=== PATIENT | male | born 1935 | race Caucasian/White ===

== ENCOUNTER 2016-12-28 10:20 | Outpatient (CLI) | payer MEDICARE, OTHER ==
[~2016-12-28 10:20] MED LIST: IOPAMIDOL-300 100 ML VIAL IVP ONE
[2016-12-28 11:03] LABS: CREATININE 0.8 mg/dL (0.6-1.2)
--- NOTE | 2016-12-28 20:30 | CT Report ---
CONTRAST ENHANCED CT EXAM OF THE CHEST: 12/28/2016 CLINICAL HISTORY: Chest wall pain and weight loss. COMPARISON: 10/10/2014 TECHNIQUE: Patient received 100 mL of Isovue-370 as a contrast agent. CAT scan of the chest was don e in 5 x 5 mm intervals with axial, coronal and sagittal reconstruction images. In accordance with CT protocol optimization, one or more of the following dose reduction techniques w ere utilized for this exam: automated exposure control, adjustment of mA and/or KV based on patient size, or use of iterative reconstructive technique. FINDINGS: Mediastinum demonstrates small lymph nodes seen in the right and anterior aspect of the pa ratracheal region. There is a collection of lymph nodes once again noted in the left paratracheal an d anterior carinal region that vary in size from a few millimeters to 1.5 cm. These lymph nodes are not definitely changed since preceding exam. There is also some mild adenopathy once again noted in the subcarinal region of the mediastinum with lymph nodes in this region measuring 1.2 cm with one of the lymph nodes in this area containing a single small calcification within it. There is also a arabella cification within two left paraesophageal lymph nodes once again seen. The adenopathy within the med iastinum therefore, is most likely a result of old granulomatous disease especially since there has b een no change since 10/10/2014. Borderline heart size is noted with mild to moderate coronary artery calcification seen in all three coronary arteries. Hilar regions demonstrate some calcified granulomatous lymph nodes in the left hilum. Lungs demonstrate cystic changes especially in each upper lobe related to emphysema. There has been some mild progression of the cystic changes since preceding exam. There are also multiple calcified granulomas within the left lung. There is a 0.6 cm calcified granuloma in the anterior aspect of the apex of the left upper lobe and a 0.7 cm calcified granuloma within the left lower lobe. There is a prominent linear area of scarring seen in the lateral aspect of the right lower lobe extending betwe en the adjacent lateral pleura and superolateral aspect of the right hemidiaphragm. This was not see n on preceding exam. This most likely represents a combination of atelectasis and scarring. Recomme nd a repeat chest CT in six months to further confirm this benign etiology. There is a 0.7 cm subple ural nodule now noted in the superior segment of the left lower lobe that was not definitely seen on preceding exam. This may represent interval nodular scarring versus a developing true nodule. Again , a repeat noncontrast CT exam of the chest in six months will be helpful for further evaluation of t his finding. Focal elongated density is seen silhouetting the anterior-inferior aspect of the medial segment of the right middle lobe. This was not seen on preceding exam. This may represent an area of conglomerate scarring and atelectasis. This area should also be reevaluated in six months. Minor areas of mild subpleural fibrosis are seen and are slightly progressive as compared to preceding exa ms. Bilateral apical pleural thickening with adjacent small apical bleb formation is once again seen . Each axilla showed no significant abnormality. Bones show minor anterior spurring in the thoracic spine. Upper abdomen demonstrates left adrenal gland to once again show a 1.7 cm benign left adrenal cyst or adenoma with CT numbers of less than 10. Few granulomatous calcifications are seen in the spleen. Surgical clips are noted in the ciarra hepatis related to prior cholecystectomy. IMPRESSION: BENIGN MEDIASTINAL ADENOPATHY IS ONCE AGAIN NOTED RELATED TO OLD GRANULOMATOUS DISEASE. CALCIFIED LE FT HILAR GRANULOMATOUS LYMPH NODES ARE SEEN AND TWO SMALL GRANULOMAS ARE NOTED IN THE LEFT LUNG. ALL THESE FINDINGS ARE UNCHANGED COMPARED TO 10/10/2014. MINIMAL EVIDENCE OF OLD GRANULOMATOUS DISEASE IS NOTED IN THE SPLEEN. EXTENSIVE EVIDENCE OF EMPHYSEMA IS ONCE AGAIN NOTED, ESPECIALLY INVOLVING THE UPPER LOBES WITH MILD P ROGRESSION COMPARED TO PRECEDING EXAM. SOME MILD ASSOCIATED SCARRING AND FIBROTIC CHANGE ARE DETECTED IN BOTH LUNGS WITH MILD PROGRESSION. PROGRESSIVE AREAS OF SCARRING ARE ESPECIALLY NOTED IN THE LATERAL ASPECT OF RIGHT LOWER LOBE ADJACENT TO THE RIGHT HEMIDIAPHRAGM, IN THE MEDIAL ASPECT OF THE ANTERIOR RIGHT MIDDLE LOBE AND IN THE SUPERI OR SEGMENT OF THE LEFT LOWER LOBE. SOME OF THESE AREAS OF SCARRING ARE ASSOCIATED WITH NODULARITY AN D THEREFORE SHOULD BE FOLLOWED WITH A REPEAT CT EXAM IN SIX MONTHS TO CONFIRM THEIR BENIGN ETIOLOGY. A 1.7 CM BENIGN LEFT ADRENAL CYST OR ADENOMA IS ONCE AGAIN SEEN. JOB #: [id number] EXT JOB #:[id number]
== END 2016-12-28 10:21 | disposition home or self-care (01) ==
LOC: LAB 10:20
PROVIDERS: ATTEND Family Medicine
DX: J43.9 Emphysema, unspecified (principal); J84.10 Pulmonary fibrosis, unspecified; R91.8 Other nonspecific abnormal finding of lung field; E27.8 Other specified disorders of adrenal gland
CPT/HCPCS: 36415; 71260; 82565

== ENCOUNTER 2018-04-12 12:12 | Outpatient (CLI) | payer MEDICARE, OTHER | END 2018-04-12 12:13 | disposition critical access hospital (66) | LOC: EMS 12:12 | PROVIDERS: ATTEND Surgery | DX: R06.00 Dyspnea, unspecified (principal) | CPT/HCPCS: A0425; A0429 ==

== ENCOUNTER 2018-04-12 12:33 | Inpatient (IN) | payer MEDICARE, OTHER ==
[2018-04-12] MEDS ORDERED: IPRATROPIUM/ALBUTEROL 3 ML NEB INH STA (12:52)
[2018-04-12 12:59] LABS: BASOPHILS % (AUTO) 0.2 %; EOSINOPHILS % (AUTO) 0.2 %; HGB - HEMOGLOBIN 9.1 g/dL (14.0-18.0); LYMPHOCYTES # (AUTO) 0.6 10^3/uL (1.5-3.5); LYMPHOCYTES % (AUTO) 5.2 %; MEAN CORPUSCULAR HEMOGLOBIN 26.7 pg (27.0-31.0); MEAN CORPUSCULAR HGB CONC 32.7 g/dL (32.0-36.0); MEAN CORPUSCULAR VOLUME 81.6 fL (80.0-94.0); MEAN PLATELET VOLUME 7.9 fL (7.4-11.4); MONOCYTES # (AUTO) 0.7 10^3/uL (0.0-1.0); NEUTROPHILS # (AUTO) 9.9 10^3/uL (1.5-6.6); NEUTROPHILS % (AUTO) 88.4 %; PLT - PLATELET COUNT 224 10^3/uL (130-450); RED CELL DISTRIBUTION WIDTH 14.6 % (12.0-15.0); WHITE BLOOD COUNT 11.2 x10^3/uL (4.8-10.8)
[2018-04-12 13:09] LABS: ALBUMIN 2.6 g/dL (3.2-5.5); ALBUMIN/GLOBULIN RATIO 0.7 (1.0-2.2); BILIRUBIN,TOTAL 0.4 mg/dL (0.2-1.0); CREATININE 0.9 mg/dL (0.6-1.2); TOTAL PROTEIN 6.3 g/dL (6.7-8.2)
[2018-04-12 13:23] LABS: CALCIUM 9.1 mg/dL (8.5-10.3)
--- NOTE | 2018-04-12 13:26 | XRAY Report ---
Reason: dyspnea Procedure Date: 04/12/2018 Accession Number: [id number] / [id number] Procedure: XR - Chest 1 View X-Ray CPT Code: 08623 FULL RESULT: EXAM: CHEST RADIOGRAPHY EXAM DATE: 04/12/2018 01:06 PM. CLINICAL HISTORY: Dyspnea. COMPARISON: CHEST 2 VIEW PA/LAT 01/21/2014 CHEST W/ 12/28/2016 12:16 AM. TECHNIQUE: 1 view. FINDINGS: Lungs/Pleura: Extensive bilateral interstitial opacities have increased compared to priors. No dense focal consolidation. No pneumothorax or large pleural effusion. Mediastinum: Within exam limitations, the cardiomediastinal contour is normal. Other: None. IMPRESSION: Significantly increased diffuse bilateral interstitial opacities. Findings may reflect worsening fibrosis or acute interstitial edema superimposed on fibrosis. RADIA
--- NOTE | 2018-04-12 13:38 | ED Physician Documentation ---
PD HPI URI - Stated complaint Stated Complaint: SOA - Chief complaint Chief Complaint: Resp - History obtained from History obtained from: Patient - History of Present Illness Timing - onset: How many days ago (5-6) Timing duration: Days (5-6) Timing details: Gradual onset, Still present Associated symptoms: Chills, Rhinorrhea, Productive cough, Dyspnea (He does have an oximeter at home and was noticing his oxygen level to be high 80s-90% on his 3 L nasal cannula. He states he typically is 95-97%.). No: Fever, Nasal congestion, Hemoptysis, Chest pain Contributing factors: COPD / asthma. No: Sick contact, Travel, Immunocompromised Improves by: Rest, MDI/nebulizer Worsened by: Activity, Position Similar symptoms before: Diagnosis (COPD, without history of fibrosis nor CHF.) Recently seen: Clinic (He went to his primary care today and was referred to the ER due to hypoxia and work of breathing. He arrived via EMS slightly improved having had nebulizer on the way.) Review of Systems Constitutional: reports: Chills, Myalgias, Fatigue (for 5-6 days). denies: Fever Ears: denies: Drainage/discharge Nose: reports: Congestion. denies: Rhinorrhea / runny nose, Sinus pressure / pain Throat: denies: Sore throat Cardiac: denies: Chest pain / pressure, Palpitations, Pedal edema, Calf pain Respiratory: reports: Dyspnea, Cough, Wheezing GI: denies: Abdominal Pain, Nausea, Vomiting, Diarrhea, Bloody / black stool : denies: Dysuria, Frequency Skin: denies: Rash, Lesions Musculoskeletal: denies: Neck pain, Back pain PD PAST MEDICAL HISTORY - Past Medical History Past Medical History: Yes Cardiovascular: High cholesterol, Atrial fibrillation Respiratory: COPD, Shortness of breath GI: GERD : None HEENT: Glaucoma Psych: None Musculoskeletal: None Derm: None - Past Surgical History Past Surgical History: Yes General: EGD, Cholecystectomy, Colonoscopy Ortho: Shoulder arthroplasty HEENT: Cataracts - Present Medications Home Medications: Ambulatory Orders Medication Instructions Recorded Confirmed Aspirin 81 mg PO 12/19/12 10/14/14 Atenolol [Tenormin] 50 mg PO DAILY 12/19/12 10/14/14 Beclomethasone 40 Mcg [Qvar 40] 2 puffs INH BID 12/19/12 10/14/14 Levalbuterol [Xopenex] 1.25 mg INH Q8H 12/19/12 10/14/14 Magnesium Oxide/Mag Aa Chelate 400 mg PO 12/19/12 10/14/14 [Magnesium 300 mg Capsule] Pantoprazole Sodium [Protonix] 40 mg PO 12/19/12 10/14/14 metFORMIN [Glucophage] 500 DAILY 10/14/14 10/14/14 - Allergies Allergies/Adverse Reactions: Allergies Allergy/AdvReac Type Severity Reaction Status Date / Time atorvastatin Allergy Intermediate Cramps Verified 12/23/13 14:23 Latex, Natural Rubber Allergy Intermediate blisters Verified 12/23/13 14:23 Sulfa (Sulfonamide Allergy Mild "sick Verified 12/23/13 14:23 Antibiotics) feeling" hydrocodone [Hydrocodone] AdvReac Mild "sick Verified 12/23/13 14:23 feeling" - Social History Does the pt smoke?: No Smoking Status: Never smoker Does the pt drink ETOH?: No Does the pt have substance abuse?: No - Immunizations Immunizations are current?: Yes PD ED PE NORMAL - Vitals Vital signs reviewed: Yes - General General: Alert and oriented X 3, No acute distress, Well developed/nourished - HEENT HEENT: Ears normal, Pharynx benign. No: Moist mucous membranes - Neck Neck: Supple, no meningeal sign, No adenopathy, No JVD - Cardiac Cardiac: RRR, No murmur - Respiratory Respiratory: No: Clear bilaterally (diffuse wheezing, with some prolonged exp phase. No wet sounds per se. No work of breathing at this tile. ) - Abdomen Abdomen: Soft, Non tender - Male Male : Deferred - Rectal Rectal: Deferred - Back Back: No CVA TTP - Derm Derm: Normal color, Warm and dry - Extremities Extremities: No deformity, No tenderness to palpate, Normal ROM s pain, No edema , No calf tenderness / cord - Neuro Neuro: Alert and oriented X 3, No motor deficit, Normal speech Results - Vitals Vitals: Vital Signs - 24 hr 04/12/18 04/12/18 12:37 13:19 Temperature 36.9 C Heart Rate 52 L 72 Respiratory 18 20 Rate Blood Pressure 126/60 O2 Saturation 91 L Oxygen O2 Source Nasal cannula Oxygen Flow Rate 5 - Labs Labs: Laboratory Tests 04/12/18 04/12/18 04/12/18 12:53 12:53 12:53 WBC 11.2 H RBC 3.40 L Hgb 9.1 L Hct 27.8 L MCV 81.6 MCH 26.7 L MCHC 32.7 RDW 14.6 Plt Count 224 MPV 7.9 Neut # (Auto) 9.9 H Lymph # (Auto) 0.6 L [place] # (Auto) 0.7 Eos # (Auto) 0.0 Baso # (Auto) 0.0 Absolute Nucleated RBC 0.00 Nucleated RBC % 0.0 Sodium 134 L Potassium 4.1 Chloride 87 L Carbon Dioxide 40 H* Anion Gap 7.0 BUN 17 Creatinine 0.9 Estimated GFR (MDRD) 81 L Glucose 152 H Calcium 9.1 Total Bilirubin 0.4 AST 14 ALT 15 Alkaline Phosphatase 69 B-Natriuretic Peptide 401 H Total Protein 6.3 L Albumin 2.6 L Globulin 3.7 Albumin/Globulin Ratio 0.7 L Lipase 25 PD MEDICAL DECISION MAKING - ED course Complexity details: reviewed results (He has some interstitial findings which are new compared to prior films. This may represent some fibrosis he has no history of that. He does not have any history of congestive heart failure though that could present in this way. He may have an atypical pneumonitis and with his history of COPD I would treat him with antibiotics for that proviso.), re-evaluated patient (He is breathing a bit easier with nebulizer en route by EMS and another here. He does not have any significant work of breathing now. However he is still running 88-90% resting on his usual 3 L nasal cannula. Given this flare of his COPD with relative hypoxia and apparent infection, I feel he will be best treated in the hospital initially. He may need to have heart evaluation as well to distinguish congestive failure from interstitial pneumonitis.), considered differential, d/w patient, d/w family - Sepsis Event Vital Signs: Vital Signs - 24 hr 04/12/18 04/12/18 12:37 13:19 Temperature 36.9 C Heart Rate 52 L 72 Respiratory 18 20 Rate Blood Pressure 126/60 O2 Saturation 91 L Oxygen O2 Source Nasal cannula Oxygen Flow Rate 5 Departure - Departure Disposition: [facility] DC/Xfer Clinical Impression: Moderate COPD (chronic obstructive pulmonary disease), Hypoxia, COPD exacerbation Pneumonia Qualifiers: Pneumonia type: due to unspecified organism Laterality: bilateral Lung location : unspecified part of lung Qualified Code(s): J18.9 - Pneumonia, unspecified organism Condition: Stable Record reviewed to determine appropriate education?: Yes
[2018-04-12] MEDS ORDERED: SODIUM CHLORIDE 0.9% 1,000 ML IV ONE (14:06)
[2018-04-12] MEDS ORDERED: ALBUTEROL NEB 2.5 MG/3 ML INH STA (14:06)
[2018-04-12] MEDS ORDERED: cefTRIAXone 1 GM VIAL IVP STA (14:06)
[2018-04-12] MEDS ORDERED: AZITHROMYCIN INJ 500 MG in SODIUM CHLORIDE 0.9% 250 ML IV STA (14:06)
[2018-04-12] MEDS ORDERED: DEXAMETHASONE 10 MG/ML VIAL IVP STA (14:06)
[2018-04-12] MEDS ORDERED: ONDANSETRON 4 MG/2 ML VIAL IVP PRN (14:15)
[2018-04-12] MEDS ORDERED: oxyCODONE 5 MG TABLET PO PRN (14:15)
[2018-04-12] MEDS ORDERED: ONDANSETRON ODT 4 MG TABLET TL PRN (14:15)
[2018-04-12] MEDS ORDERED: ACETAMINOPHEN 325 MG TABLET PO PRN (14:15)
[2018-04-12] MEDS ORDERED: ALBUTEROL NEB 2.5 MG/3 ML INH PRN (14:19)
[2018-04-12] MEDS: AZITHROMYCIN INJ 500 MG in SODIUM CHLORIDE 0.9% 250 ML IV SCH (15:17)
[2018-04-12] MEDS: SODIUM CHLORIDE FLUSH 0.9% 10 ML SYRINGE IVP SCH (16:18)
[2018-04-12] MEDS: IPRATROPIUM/ALBUTEROL 3 ML NEB INH SCH ×2 (17:18→19:14)
[2018-04-13] MEDS: SODIUM CHLORIDE FLUSH 0.9% 10 ML SYRINGE IVP SCH ×3 (01:19→15:54)
--- NOTE | 2018-04-13 02:02 | HISTORY & PHYSICAL EXAMINATION ---
DATE OF SERVICE: 04/12/2018 Physician: Corinne Ingram MD PRIMARY CARE PROVIDER: Tom Biswas MD ADMITTING PROVIDER: Corinne Ingram MD CHIEF COMPLAINT: Cough, shortness of breath, and hypoxia; sent from primary care office. HISTORY OF PRESENT ILLNESS: The patient is a [place] elderly gentleman who has had COPD for about 10 years and has been on home O2 for about 2 years. He thinks he has been admitted once before to [facility] for COPD exacerbation , but he cannot remember what year that was. He also thinks he has had an echocardiogram of the heart many years ago but cannot remember when. Our electronic medical record only goes to 2012. He may have an echocardiogram done before 2012; he is not sure. He continues to smoke, maybe 1 pack per week. He started smoking at the age of 19 and smoked 1 pack per day. He has a daily cough, daily phlegm production. In spite of his decreased endurance and dyspnea on exertion, he is still able to do simple activities such as vacuuming the carpet, gardening in the yard, doing laundry, cooking. He says that if he does it slowly and steadily there is nothing he cannot do. About 5 or 6 days ago he started developing worse cough and slightly worse shortness of breath and wheezing. Nothing serious and he thought it would go away. No one else is sick. Nobody has a cold, flu. The cough and dyspnea on exertion continued to worsen over the last 5 days. He denied fever or chills. Although he was breathing hard, he denied palpitations. He did have a runny nose that got worse, increasing phlegm. Usually he is 95% on 3 liters nasal cannula. With this episode, he was going down into the high 80s. He did not cough up any blood. No ear pain. No sore throat. If he sat down and did nothing or took his nebulizer he would get a little bit better but then it would come right back. Doing anything made it much worse. He went to his primary care provider today. While in the clinic, his hypoxia was down into the low 80s percentage peterson, and he was sent to the emergency room. He arrived via EMS, after having a nebulizer on the way. In the emergency room, he was initially afebrile. He did not spike a temperature until he came to the floor. Initially he was 36.9, and when he was transferred to the medical/surgical unit he was 39.6. Heart rate was 52. Respirations were 18-20 and unlabored, but he was audibly wheezing that you could hear across the room. Blood pressure was 124/48. He had a nasal tone of voice, diffuse bilateral wheezing with a rub bilaterally. Sodium was 134, carbon dioxide was 40, random glucose 152. BNP 401. Troponin less than 0.04. White cell count was elevated at 11.2, and he was anemic at 9.1. Chest x-ray shows significantly increased diffuse bilateral interstitial opacities. This could reflect worsening fibrosis or acute interstitial edema superimposed on fibrosis. This is compared to his prior chest x-rays where he had interstitial opacities that are chronic. He does not have focal consolidation. No pneumothorax. No pleural effusion. PAST MEDICAL HISTORY 1. COPD for greater than 10 years. He has never been intubated. He has no been maintained on oral steroids. 2. Hypertension. 3. Chronic atrial fibrillation. He thinks he has had an echocardiogram before. 4. Glaucoma and cataracts and presbyopia. 5. Cholecystectomy. 6. History of gastritis with EGD done in the past as well as colonoscopy. 7. Osteoarthritis with shoulder arthroplasty. 8. Diabetes mellitus; controlled, not on insulin, no complications. ALLERGIES 1. ATORVASTATIN. 2. LATEX. 3. SULFA. 4. HYDROCODONE. MEDICATIONS 1. Aspirin 81 daily. 2. Atenolol 50 daily. 3. Xopenex 1.25 every 6 hours via nebulizer. 4. Metformin 500 mg p.o. b.i.d. 5. Mirtazapine 15 mg p.o. q. p.m. 6. Singulair 10 mg p.o. q. p.m. 7. Protonix 40 mg a day. 8. Spiriva 2 puffs daily. SOCIAL HISTORY: He was born in the [place] area. [place] especially near [facility] and [place]. He took a job here because it was just too darn hot in [place]. He ended up buying a place on [address] in 1976 and has lived here since. He has been to his first for 57 years. 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 His kids live [place], 2 in [place] and 1 in [place]. He started smoking at the age of 19 and is still currently smoking a pack a week. At most, he smokes 1 pack per day. He says he is a nondrinker and maybe drinks 1 beer every 6 months. He has no other history of recreational substance abuse. FAMILY HISTORY: Mom at age 38 of some type of stroke. Dad at age 93 of old age. No history of heart attack, stroke, diabetes, or cancer. He has 8 brothers and sisters and 1 is from an [place]. All of his other sisters and brothers are alive. Again, he denies high blood pressure, cancer, stroke, diabetes, or emphysema. He has 4 children and, as far as he knows, they are all completely healthy. REVIEW OF SYSTEMS GENERAL REVIEW: Shows him to be without any unexpected weight changes, no fevers or sweats, and although he is short of breath with exertion, stable for the last 2-3 years. HEENT: Wears glasses. No amaurosis fugax. No blurred vision. He denies problems with chewing or swallowing. Currently, he has severe runny nose, but no ear pain and no sore throat. PULMONARY: As above in history of present illness. CARDIAC: Denies angina, orthopnea, pedal edema, palpitations, chest pain. Has chronic atrial fibrillation, not anticoagulated. GASTROINTESTINAL: Denies abdominal pain. Denies any change in bowel habits. No blood in the stool. No black tarry stools. No nausea. Good appetite. GENITOURINARY: Nocturia is once. Mild decreased stream over the course of his life but nothing severe. Denies urgency, frequency. Denies dribbling. Denies decreased stream. No flank pain. SKIN: Denies body rashes, new lesions. PSYCHIATRIC: Denies depression, anxiety, hallucinations. ENDOCRINE: No polyuria, polydipsia, or polyphagia. Denies or cold or heat intolerance. NEUROLOGIC: Denies memory loss. Feels like his memory is pretty good. No history of syncope, seizures, or focal deficits. PHYSICAL EXAMINATION VITAL SIGNS: Temperature is 39.6, pulse 81, blood pressure 125/48, respirations 24, and 92% on 3 liters. When he was triaged, temperature was 36.9 , heart rate 52, blood pressure 126/60, respirations 18, and 91% on 3 liters nasal cannula. GENERAL: He is a tall, lanky, alert, elderly gentleman with slight male pattern baldness, long hair, azar and mustache. He is asleep but awakens easily when I walked in the room and call his name. HEAD AND NECK: Unremarkable other than dry oral mucosa. No facial asymmetry. Voice is slightly low and hoarse. Pupils reactive. Back of throat is injected , but there is no exudate. TMs are retracted without redness. He does clear his throat and has mild rhinorrhea during my exam. Neck has shotty adenopathy. No goiter or bruits. LUNGS: Diffuse, prolonged, inhalation with stethoscope. However, the wheezing is audible even without the stethoscope. Diminished breath sounds at the bases. No crackles or rhonchi. No increased respiratory effort. Rib cage is marked by diffuse muscle wasting and ribs are quite prominent. HEART: Irregular rate and rhythm that is slow, controlled. No murmurs, rubs, or gallop. PMI normally placed and only a very slight right ventricular lift. ABDOMEN: Soft, scaphoid, nontender. Normal bowel sounds. EXTREMITIES: Warm without clubbing, cyanosis, or any edema. NEUROLOGIC: He is alert and oriented to person, place, and time. Can follow 2- step commands. No gross focal motor deficits of arms or legs. Babinski is downgoing. No tremors. He appears to be slightly deaf, but otherwise cranial nerves are intact with I not tested. LABORATORY DATA: White cell count 11.2, hemoglobin 9.1, hematocrit 27.8, platelets 224. Sodium 134, potassium 4.1, chloride 87, carbon dioxide 40, glucose 152. BNP 401. Troponin less than 0.04. Total protein 6.3, albumin 2.6. Chest x-ray discussed in history of present illness. ASSESSMENT: 1. [id number] respiratory failure with hypercapnia and hypoxia. Hypercapnia is visible through the elevated bicarbonate on his BMP. Hypoxia noted in the emergency department. No blood gas done. Cause is congestive heart failure versus pneumonitis. I do not think he has acute congestive heart failure from atrial fibrillation because his rate is controlled. PLAN Admit to inpatient status. Attestation that the patient will be admitted less than 96 hours. 2. Acute exacerbation of chronic obstructive pulmonary disease. IV antibiotics empirically with the form of Rocephin and azithromycin. IV steroids t.i.d. DuoNeb fixed dose q.i.d. Albuterol q.2 hours p.r.n. Resume Spiriva when more stable. 3. Interstitial infiltrate. Check echocardiogram to assess left ventricular size. BNP indicates mild fluid overload, so the acute respiratory failure may be due more from an acute systolic congestive heart failure than COPD. Nevertheless, treat both diseases. Consider reducing the atenolol and adding ALEKSEY inhibitor. We will reassess in the next 24-48 hours. If he does not improve, consider CT of the chest. 4. Type 2 diabetes mellitus. Controlled, without complications, not on long- term insulin. Check A1c. No Glucophage while he is in the hospital. If his xmnca-ao-elbd glucose testing warrants it, add sliding scale eating with NovoLog. 5. History of ulcers. Continue proton pump inhibitor. Currently no symptoms, but he does have microcytic anemia. 6. Microcytic anemia. I have requested old records from Dr. Biswas's office. The fax number given to the office was [phone]. As of 4 hours later, the fax has still not been received. It may have been lost in the ether, and I will request records again tomorrow for the last medical note, problem list, and medication list. 7. Deep venous thrombosis prophylaxis will be REAL murillo. 8. FULL CODE STATUS. He says that he has never thought about code status. Never thought about the inevitability of having more and more difficulty breathing with his emphysema. I have asked him to take home some "homework"; to sit down and talk to his and begin the discussions about end of life issues. How does he define his quality of life? What is most important to him ? How he would like to be treated? Does he want to be intubated? Does he have any parameters by which I would extubate him? TD: 04/12/2018 18:42 MARTELL
[2018-04-13 06:05] LABS: BASOPHILS % (AUTO) 0.1 %; HGB - HEMOGLOBIN 9.3 g/dL (14.0-18.0); LYMPHOCYTES # (AUTO) 0.5 10^3/uL (1.5-3.5); LYMPHOCYTES % (AUTO) 4.3 %; MEAN CORPUSCULAR HEMOGLOBIN 26.2 pg (27.0-31.0); MEAN CORPUSCULAR HGB CONC 32.5 g/dL (32.0-36.0); MEAN CORPUSCULAR VOLUME 80.9 fL (80.0-94.0); MEAN PLATELET VOLUME 8.2 fL (7.4-11.4); MONOCYTES # (AUTO) 0.4 10^3/uL (0.0-1.0); MONOCYTES % (AUTO) 3.2 %; NEUTROPHILS # (AUTO) 10.7 10^3/uL (1.5-6.6); NEUTROPHILS % (AUTO) 92.4 %; PLT - PLATELET COUNT 228 10^3/uL (130-450); RED BLOOD COUNT 3.53 10^6/uL (4.70-6.10); RED CELL DISTRIBUTION WIDTH 14.7 % (12.0-15.0); WHITE BLOOD COUNT 11.6 x10^3/uL (4.8-10.8)
[2018-04-13 06:34] LABS: CALCIUM 9.1 mg/dL (8.5-10.3); CREATININE 0.7 mg/dL (0.6-1.2)
[2018-04-13] MEDS: IPRATROPIUM/ALBUTEROL 3 ML NEB INH SCH ×4 (06:58→19:05)
[2018-04-13] MEDS: cefTRIAXone 2 GM in SODIUM CHLORIDE 0.9% MINIBAG 100 ML IV SCH (09:15)
[2018-04-13] MEDS: POLYETHYLENE GLYCOL 3350 17 GM PACKET PO SCH (09:15)
--- NOTE | 2018-04-13 11:45 | PROVIDER PROGRESS NOTE ---
Subjective - Prog Note Date Prog Note Date: 04/13/18 Prog Note Time: 11:45 - Subjective Pt reports feeling: Improved Subjective: He is better than he was yesterday. But he is still short of breath just talking to me. He is able to get out of the bed and sit in the chair. It is a struggle to get to the bathroom because he gets so short of breath. But he is not short of breath at rest where he was before. Still has severe chest congestion. Not really bringing up a lot of phlegm. It is not green or yellow. There is no hemoptysis. Able to keep food down. No significant orthopnea or pedal edema. Current Medications - Current Medications Current Medications: Active Medications Acetaminophen (Tylenol) 650 mg PO Q4HR PRN PRN Reason: Pain 1 to 4 Albuterol () 2.5 mg INH RTQ4H PRN PRN Reason: Wheezing Albuterol/Ipratropium (Duoneb) 3 ml INH RTQID [facility] Last Admin: 04/13/18 10:27 Dose: 3 ml Azithromycin 500 mg/ Sodium (Chloride) 250 mls @ 250 mls/hr IV Q24H [facility] Last Infusion: 04/12/18 16:57 Dose: Infused Ceftriaxone Sodium 2 gm/ (Sodium Chloride) 100 mls @ 200 mls/hr IV DAILY [facility] Last Admin: 04/13/18 09:15 Dose: 200 mls/hr Ondansetron HCl (Zofran Inj) 4 mg IVP Q6HR PRN PRN Reason: Nausea / Vomiting Ondansetron HCl (Zofran Odt) 4 mg TL Q6HR PRN PRN Reason: Nausea / Vomiting Oxycodone HCl (Roxicodone) 5 mg PO Q4HR PRN PRN Reason: Pain 5 to 7 Polyethylene Glycol (Miralax) 17 gm PO DAILY [facility] Last Admin: 04/13/18 09:15 Dose: 17 gm Sodium Chloride (Normal Saline Flush 0.9%) 10 ml IVP PRN PRN PRN Reason: NEEDED PER PROVIDER ORDERS Sodium Chloride (Normal Saline Flush 0.9%) 10 ml IVP 0100,0900,1700 [facility] Last Admin: 04/13/18 09:17 Dose: 10 ml Aspirin 81 mg PO DAILY 12/19/12 Atenolol [Tenormin] 50 mg PO DAILY 12/19/12 Levalbuterol [Xopenex] 1.25 mg INH Q6H PRN 12/19/12 Pantoprazole Sodium [Protonix] 40 mg PO DAILY 12/19/12 metFORMIN [Glucophage] 500 mg PO BID 10/14/14 Mirtazapine [Mirtazapine] 15 mg PO QPM 04/12/18 Montelukast Sodium 10 mg PO QPM PRN 04/12/18 Tiotropium [place] [Spiriva Respimat] 2 puffs IH DAILY 04/12/18 Objective - Vital Signs/Intake & Output Reviewed Vital Signs: Yes Vital Signs: Vital Signs x48h Temp Pulse Pulse Resp BP Pulse Ox 04/13/18 10:27 81 30 H 04/13/18 08:00 36.8 C 86 18 120/56 L 89 L 04/13/18 06:59 77 28 H Intake & Output: Intake & Output 04/10/18 04/11/18 04/12/18 04/13/18 23:59 23:59 23:59 23:59 Intake Total 1430 460 Output Total 175 Balance 1255 460 - Objective General Appearance: positive: Alert, Mild distress, Other (Lean lanky elderly gentleman with nasal tone of voice and a nasal cannula in place) Eyes Bilateral: positive: PERRL, EOMI ENT: positive: Pharynx nml Neck: positive: No JVD. negative: Stiff neck, Carotid bruit Respiratory: positive: Chest non-tender, Wheezes, Rales, Rhonchi, Other (His lung sounds last rough than yesterday. He almost sounded like he had a severe rub. That noise is gone.) Cardiovascular: positive: Irregularly irregular, Bradycardia (occasionally), Systolic murmur. negative: Gallop/S4, Friction rub Abdomen: positive: Non-tender, No organomegaly, Nml bowel sounds, No distention Skin: positive: Warm, Dry Extremities: positive: Full ROM, No pedal edema Neurologic/Psychiatric: positive: Oriented x3, CN's nml (2-12), Motor nml, Weakness Babinski Reflex: Right: Down, Left: Down - Lab Results Fish Bones: 04/13/18 05:35 04/13/18 05:35 Other Labs: Lab Results x24hrs 04/13/18 04/13/18 Range/Units 05:35 05:35 WBC 11.6 H (4.8-10.8) x10^3/uL RBC 3.53 L (4.70-6.10) 10^6/uL Hgb 9.3 L (14.0-18.0) g/dL Hct 28.6 L (42.0-52.0) % MCV 80.9 (80.0-94.0) fL MCH 26.2 L (27.0-31.0) pg MCHC 32.5 (32.0-36.0) g/dL RDW 14.7 (12.0-15.0) % Plt Count 228 (130-450) 10^3/uL MPV 8.2 (7.4-11.4) fL Neut # (Auto) 10.7 H (1.5-6.6) 10^3/uL Lymph # (Auto) 0.5 L (1.5-3.5) 10^3/uL [place] # (Auto) 0.4 (0.0-1.0) 10^3/uL Eos # (Auto) 0.0 (0.0-0.7) 10^3/uL Baso # (Auto) 0.0 (0.0-0.1) 10^3/uL Absolute Nucleated RBC 0.00 x10^3/uL Nucleated RBC % 0.0 /100WBC Sodium 135 (135-145) mmol/L Potassium 4.7 (3.5-5.0) mmol/L Chloride 88 L (101-111) mmol/L Carbon Dioxide 41 H* (21-32) mmol/L Anion Gap 6.0 (6-13) BUN 18 (6-20) mg/dL Creatinine 0.7 (0.6-1.2) mg/dL Estimated GFR (MDRD) 108 (>89) Glucose 181 H (70-100) mg/dL Calcium 9.1 (8.5-10.3) mg/dL ABX Reporting Has patient been on IV antibiotics over the past 48 hours?: Yes Assessment/Plan - Problem List (1) Acute on chronic respiratory failure with hypoxia and hypercapnia Impression: He presents as a chronic respiratory failure patient from his COPD. Has had COPD for 10 years and is on home O2 for 2 years. In the last week he has had progressive cough, dyspnea at rest, increasing chest congestion. In the emergency room he was afebrile but spiked a temperature once he got to the floor. White cell count was elevated. Chest x-ray is equivocal for either interstitial infiltrate or interstitial pulmonary edema.His HCO3 is still high and indicates the metabolic acidosis from his resp failure is not much improved even though he feels improved. Plan: Although his labs do not show much improvement, the patient states that he is better. Oxygen requirement has not increased. Consider BiPAP if necessary. Reassess with venous blood gas. I will try and do an add-on blood test to today 's labs. Will order venous blood gas for tomorrow and on a daily basis. (2) COPD exacerbation Impression: Still wheezing on lung exam. Day #2 of Rocephin and azithromycin Cultures are not back yet Continue IV steroids, duo neb fixed dose schedule, as needed albuterol (3) Interstitial lung disease Impression: Seen on chest x-ray and much worse than previous chest x-ray in the past. Echocardiogram has been done and shows him to have predominantly right-sided heart failure. Because this does not explain the interstitial changes, I will do a CT of the chest to assess his fibrosis and emphysema.
[2018-04-13] MEDS ORDERED: CALCIUM CARBONATE CHEW 500 MG TABLET PO PRN (13:17)
[2018-04-13] MEDS: PANTOPRAZOLE 40 MG TABLET PO SCH (14:40)
[2018-04-13] MEDS: SODIUM CHLORIDE FLUSH 0.9% 10 ML SYRINGE IVP PRN (14:51)
[2018-04-13] MEDS: AZITHROMYCIN INJ 500 MG in SODIUM CHLORIDE 0.9% 250 ML IV SCH (15:53)
[2018-04-13] MEDS ORDERED: GI COCKTAIL 120 ML BOTTLE PO ONE (16:59)
--- NOTE | 2018-04-13 19:05 | CT Report ---
Reason: interstial changes Procedure Date: 04/13/2018 Accession Number: [id number] / [id number] Procedure: CT - Chest W/O CPT Code: FULL RESULT: EXAM: CT CHEST HIGH-RESOLUTION WITHOUT CONTRAST EXAM DATE: 04/13/2018 06:39 PM. CLINICAL HISTORY: Intersitial changes. COMPARISON: CHEST W/ 10/10/2014 8:45 AM. TECHNIQUE: High-resolution CT was performed utilizing thin section imaging in supine and prone position. Multiaxial helical CT imaging was performed through the chest. IV contrast: None. Reconstructions: Coronal and sagittal. In accordance with CT protocol optimization, one or more of the following dose reduction techniques were utilized for this exam: automated exposure control, adjustment of mA and/or KV based on patient size, or use of iterative reconstructive technique. FINDINGS: Mediastinum: Aortic and coronary artery calcification. No aortic or cardiac enlargement. Left hilar calcified lymph nodes. No adenopathy. Abnormal lower esophageal wall thickening. No pericardial effusion. Lungs/pleura: Hyperinflated lungs. Calcified granulomas on the left. Apical predominant centrilobular emphysema. Widespread mild peripheral reticulation bilaterally, worst at the right lung base, without honeycombing. No consolidation or groundglass infiltrates. Small bilateral pleural effusions. No bronchiectasis noted. IMPRESSION: 1. Hyperinflation with apical predominant centrilobular emphysema and peripheral reticulation, worse than prior, worst at the right lung base. 2. Small bilateral pleural effusions. 3. Old granulomatous disease in the left lung and spleen. RADIA
[2018-04-14 05:44] LABS: BASOPHILS % (AUTO) 0.2 %; EOSINOPHILS # (AUTO) 0.1 10^3/uL (0.0-0.7); EOSINOPHILS % (AUTO) 0.6 %; HGB - HEMOGLOBIN 9.9 g/dL (14.0-18.0); LYMPHOCYTES # (AUTO) 1.2 10^3/uL (1.5-3.5); LYMPHOCYTES % (AUTO) 9.7 %; MEAN CORPUSCULAR HEMOGLOBIN 26.5 pg (27.0-31.0); MEAN CORPUSCULAR HGB CONC 32.2 g/dL (32.0-36.0); MEAN CORPUSCULAR VOLUME 82.4 fL (80.0-94.0); MEAN PLATELET VOLUME 8.2 fL (7.4-11.4); MONOCYTES # (AUTO) 0.8 10^3/uL (0.0-1.0); MONOCYTES % (AUTO) 6.8 %; NEUTROPHILS # (AUTO) 10.3 10^3/uL (1.5-6.6); NEUTROPHILS % (AUTO) 82.7 %; PLT - PLATELET COUNT 283 10^3/uL (130-450); RED BLOOD COUNT 3.73 10^6/uL (4.70-6.10); RED CELL DISTRIBUTION WIDTH 15.4 % (12.0-15.0); WHITE BLOOD COUNT 12.4 x10^3/uL (4.8-10.8)
[2018-04-14 05:57] LABS: CALCIUM 9.1 mg/dL (8.5-10.3); CREATININE 0.8 mg/dL (0.6-1.2)
[2018-04-14] MEDS: PANTOPRAZOLE 40 MG TABLET PO SCH (06:28)
[2018-04-14] MEDS: SODIUM CHLORIDE FLUSH 0.9% 10 ML SYRINGE IVP SCH ×4 (06:31→17:27)
--- NOTE | 2018-04-14 08:27 | XRAY Report ---
Reason: Worsening hypoxia Procedure Date: 04/14/2018 Accession Number: [id number] / [id number] Procedure: XR - Chest 1 View X-Ray CPT Code: 60247 FULL RESULT: EXAM: CHEST RADIOGRAPHY EXAM DATE: 04/14/2018 08:05 AM. CLINICAL HISTORY: Worsening hypoxia. COMPARISON: CT 04/13/2018, radiograph 04/12/2018. TECHNIQUE: Upright AP view. FINDINGS: Lungs/Pleura: Small bilateral pleural effusions, as before. Moderate reticulation throughout the mid to lower lungs bilaterally consistent with fibrosis. No new air space opacities. No pneumothorax. Mediastinum: Within exam limitations, the cardiomediastinal contour is normal. Other: None. IMPRESSION: 1. Moderate interstitial fibrosis in the mid to lower lungs bilaterally, as before. No new airspace opacities. 2. Small bilateral pleural effusions, as before. [facility]
[2018-04-14] MEDS: IPRATROPIUM/ALBUTEROL 3 ML NEB INH SCH ×4 (08:48→21:08)
[2018-04-14] MEDS: cefTRIAXone 2 GM in SODIUM CHLORIDE 0.9% MINIBAG 100 ML IV SCH (09:04)
[2018-04-14] MEDS: POLYETHYLENE GLYCOL 3350 17 GM PACKET PO SCH (09:05)
--- NOTE | 2018-04-14 09:09 | PROVIDER PROGRESS NOTE ---
Subjective - Prog Note Date Prog Note Date: 04/14/18 Prog Note Time: 09:07 - Subjective Pt reports feeling: Improved Subjective: Interesting gentleman. Between yesterday and today he has had 3 episodes of severe hypoxia to quickly correct when you put his nasal cannula back on. He will fall asleep, the nasal cannula falls off, he is unaware of it and an aide or nurse will find him with an O2 sat of down to 40%. Some of it may be due to the oximeter misread from his clamping Current Medications - Current Medications Current Medications: Active Medications Acetaminophen (Tylenol) 650 mg PO Q4HR PRN PRN Reason: Pain 1 to 4 Albuterol () 2.5 mg INH RTQ4H PRN PRN Reason: Wheezing Last Admin: 04/14/18 05:18 Dose: 2.5 mg Albuterol/Ipratropium (Duoneb) 3 ml INH RTQID [facility] Last Admin: 04/14/18 12:28 Dose: 3 ml Calcium Carbonate/Glycine (Tums) 500 mg PO BID PRN PRN Reason: INDIGESTION Last Admin: 04/13/18 14:06 Dose: 500 mg Azithromycin 500 mg/ Sodium (Chloride) 250 mls @ 250 mls/hr IV Q24H [facility] Last Infusion: 04/13/18 17:10 Dose: Infused Ceftriaxone Sodium 2 gm/ (Sodium Chloride) 100 mls @ 200 mls/hr IV DAILY [facility] Last Infusion: 04/14/18 09:34 Dose: Infused Ondansetron HCl (Zofran Inj) 4 mg IVP Q6HR PRN PRN Reason: Nausea / Vomiting Last Admin: 04/13/18 14:51 Dose: 4 mg Ondansetron HCl (Zofran Odt) 4 mg TL Q6HR PRN PRN Reason: Nausea / Vomiting Oxycodone HCl (Roxicodone) 5 mg PO Q4HR PRN PRN Reason: Pain 5 to 7 Pantoprazole Sodium (Protonix) 40 mg PO QDAC [facility] Last Admin: 04/14/18 06:28 Dose: 40 mg Polyethylene Glycol (Miralax) 17 gm PO DAILY [facility] Last Admin: 04/14/18 09:05 Dose: Not Given Sodium Chloride (Normal Saline Flush 0.9%) 10 ml IVP PRN PRN PRN Reason: NEEDED PER PROVIDER ORDERS Last Admin: 04/13/18 14:51 Dose: 10 ml Sodium Chloride (Normal Saline Flush 0.9%) 10 ml IVP 0100,0900,1700 [facility] Last Admin: 04/14/18 09:05 Dose: 10 ml Aspirin 81 mg PO DAILY 12/19/12 Atenolol [Tenormin] 50 mg PO DAILY 12/19/12 Levalbuterol [Xopenex] 1.25 mg INH Q6H PRN 12/19/12 Pantoprazole Sodium [Protonix] 40 mg PO DAILY 12/19/12 metFORMIN [Glucophage] 500 mg PO BID 10/14/14 Mirtazapine [Mirtazapine] 15 mg PO QPM 04/12/18 Montelukast Sodium 10 mg PO QPM PRN 04/12/18 Tiotropium [place] [Spiriva Respimat] 2 puffs IH DAILY 04/12/18 Objective - Vital Signs/Intake & Output Reviewed Vital Signs: Yes Vital Signs: Vital Signs x48h Temp Pulse Pulse Resp BP Pulse Ox 04/14/18 08:48 83 28 H 04/14/18 07:48 25 H 93 04/14/18 07:41 36.7 C 83 20 138/55 H 92 04/14/18 05:19 90 20 Intake & Output: Intake & Output 04/11/18 04/12/18 04/13/18 04/14/18 23:59 23:59 23:59 23:59 Intake Total 1430 1850 450 Output Total 175 Balance 1255 1850 450 - Objective General Appearance: positive: Alert, Mild distress, Other (Although he is mildly tachypneic, he stoutly maintains "I am just fine". His main concern is getting his breakfast. He is hungry and he wants to eat.) Eyes Bilateral: positive: PERRL, EOMI ENT: positive: Dry mucous membranes Neck: positive: No JVD. negative: Stiff neck, Carotid bruit Respiratory: positive: Chest non-tender, Wheezes (Very faint. For the most part his lungs are very very quiet.), Other (The loud rub that was present on admission is completely resolved. It was bilateral, very rough.). negative: Rales, Rhonchi Cardiovascular: positive: Regular rate & rhythm. negative: Gallop/S4 Abdomen: positive: Non-tender, No organomegaly, Nml bowel sounds, No distention Skin: positive: Warm, Dry Extremities: positive: Non-tender, No pedal edema Neurologic/Psychiatric: positive: Oriented x3, CN's nml (2-12), Motor nml. negative: Mood/affect nml (Not very alarmed about his hypoxia or how short of breath he gets. It does not seem to affect him and does not give him any anxiety whatsoever.) - Lab Results Fish Bones: 04/14/18 05:10 04/14/18 05:10 Other Labs: Lab Results x24hrs 04/14/18 04/14/18 04/13/18 Range/Units 05:10 05:10 17:23 WBC 12.4 H (4.8-10.8) x10^3/uL RBC 3.73 L (4.70-6.10) 10^6/uL Hgb 9.9 L (14.0-18.0) g/dL Hct 30.7 L (42.0-52.0) % MCV 82.4 (80.0-94.0) fL MCH 26.5 L (27.0-31.0) pg MCHC 32.2 (32.0-36.0) g/dL RDW 15.4 H (12.0-15.0) % Plt Count 283 (130-450) 10^3/uL MPV 8.2 (7.4-11.4) fL Neut # (Auto) 10.3 H (1.5-6.6) 10^3/uL Lymph # (Auto) 1.2 L (1.5-3.5) 10^3/uL [place] # (Auto) 0.8 (0.0-1.0) 10^3/uL Eos # (Auto) 0.1 (0.0-0.7) 10^3/uL Baso # (Auto) 0.0 (0.0-0.1) 10^3/uL Absolute Nucleated RBC 0.01 x10^3/uL Nucleated RBC % 0.0 /100WBC Sodium 135 (135-145) mmol/L Potassium 4.5 (3.5-5.0) mmol/L Chloride 89 L (101-111) mmol/L Carbon Dioxide 41 H* (21-32) mmol/L Anion Gap 5.0 L (6-13) BUN 19 (6-20) mg/dL Creatinine 0.8 (0.6-1.2) mg/dL Estimated GFR (MDRD) 93 (>89) Glucose 118 H (70-100) mg/dL Calcium 9.1 (8.5-10.3) mg/dL Troponin I < 0.04 (<0.49) ng/mL ABX Reporting Has patient been on IV antibiotics over the past 48 hours?: Yes Assessment/Plan - Problem List (1) Acute on chronic respiratory failure with hypoxia and hypercapnia Impression: He presents as a chronic respiratory failure patient from his COPD. Has had COPD for 10 years and is on home O2 for 2 years. In the last week he has had progressive cough, dyspnea at rest, increasing chest congestion. In the emergency room he was afebrile but spiked a temperature once he got to the floor. White cell count was elevated. Chest x-ray is equivocal for either interstitial infiltrate or interstitial pulmonary edema.His HCO3 continues to be high and indicates the metabolic acidosis from his resp failure is not much improved even though he feels improved. It also doesn't help that he lets his O2 slip off and he drops his sats severely. But he's not even aware of it. Plan: Although his labs do not show much improvement, the patient continues to state that he is better. Oxygen requirement has not increased when he regularly wears it. Consider BiPAP if necessary but so far not needed. Reassess with venous blood gas. I will try and do an add-on blood test to today 's labs. Will order venous blood gas for tomorrow and on a daily basis. (2) COPD exacerbation Impression: Still wheezing on lung exam but his rough rub has resolved. Day #3 of Rocephin and azithromycin Cultures are not back yet and are "in process" Continue IV steroids, duo neb fixed dose schedule, as needed albuterol He may be at baseline status. It is difficult to tell. But every time his oxygen falls off he becomes severely hypoxic. (3) Interstitial lung disease Impression: Seen on chest x-ray and much worse than previous chest x-ray in the past. Echocardiogram has been done and shows him to have predominantly right-sided heart failure. Because this does not explain the interstitial changes, I ordered a CT of the chest to assess his fibrosis and emphysema. Results are as follows: IMPRESSION: 1. Hyperinflation with apical predominant centrilobular emphysema and peripheral reticulation, worse than prior, worst at the right lung base. 2. Small bilateral pleural effusions. 3. Old granulomatous disease in the left lung and spleen. So what we are seeing is severe fibrosis and not left sided heart failure. Overall this a poor prognosis. will discuss w patient and his family.
[2018-04-14] MEDS: AZITHROMYCIN INJ 500 MG in SODIUM CHLORIDE 0.9% 250 ML IV SCH (16:11)
[2018-04-14 18:01] LABS: ABG PH 7.34 (7.35-7.45)
[2018-04-14 18:02] LABS: ABG HCO3 42.4 mmol/L (22.0-26.0); ABG OXYGEN SATURATION 96 % (94-98); ABG PO2 85 mmHg (80-100); ALLEN TEST POSITIVE
[2018-04-14 18:04] LABS: ABG PCO2 81 mmHg (34-45)
[2018-04-14 18:05] LABS: ABG TCO2 44.8 MMOL/L (21.0-29.0)
[2018-04-14] MEDS ORDERED: MONTELUKAST 10 MG TABLET PO PRN (20:39)
[2018-04-14] MEDS: SODIUM CHLORIDE FLUSH 0.9% 10 ML SYRINGE IVP PRN (21:34)
[2018-04-14] MEDS: methylPREDNISolone SUCCINATE 40 MG/ML VIAL IVP SCH (21:34)
[2018-04-14] MEDS: MIRTAZAPINE 15 MG TABLET PO SCH (21:34)
[2018-04-15] MEDS: SODIUM CHLORIDE FLUSH 0.9% 10 ML SYRINGE IVP SCH ×4 (03:33→23:37)
[2018-04-15 06:41] LABS: BASOPHILS % (AUTO) 0.3 %; HGB - HEMOGLOBIN 9.9 g/dL (14.0-18.0); LYMPHOCYTES # (AUTO) 0.6 10^3/uL (1.5-3.5); LYMPHOCYTES % (AUTO) 6.7 %; MEAN CORPUSCULAR HEMOGLOBIN 26.4 pg (27.0-31.0); MEAN CORPUSCULAR HGB CONC 32.5 g/dL (32.0-36.0); MEAN CORPUSCULAR VOLUME 81.1 fL (80.0-94.0); MEAN PLATELET VOLUME 7.6 fL (7.4-11.4); MONOCYTES # (AUTO) 0.2 10^3/uL (0.0-1.0); MONOCYTES % (AUTO) 2.6 %; NEUTROPHILS # (AUTO) 7.8 10^3/uL (1.5-6.6); NEUTROPHILS % (AUTO) 90.4 %; PLT - PLATELET COUNT 274 10^3/uL (130-450); RED BLOOD COUNT 3.74 10^6/uL (4.70-6.10); RED CELL DISTRIBUTION WIDTH 14.7 % (12.0-15.0); WHITE BLOOD COUNT 8.6 x10^3/uL (4.8-10.8)
[2018-04-15 07:05] LABS: CALCIUM 9.3 mg/dL (8.5-10.3); CREATININE 0.7 mg/dL (0.6-1.2)
[2018-04-15] MEDS: IPRATROPIUM/ALBUTEROL 3 ML NEB INH SCH ×4 (07:28→20:56)
[2018-04-15] MEDS ORDERED: PANTOPRAZOLE 40 MG TABLET PO SCH (09:00)
[2018-04-15] MEDS: ATENOLOL 25 MG TABLET PO SCH (09:37)
[2018-04-15] MEDS: POLYETHYLENE GLYCOL 3350 17 GM PACKET PO SCH (09:37)
[2018-04-15] MEDS: cefTRIAXone 2 GM in SODIUM CHLORIDE 0.9% MINIBAG 100 ML IV SCH (09:39)
[2018-04-15] MEDS: methylPREDNISolone SUCCINATE 40 MG/ML VIAL IVP SCH ×3 (09:56→21:04)
[2018-04-15] MEDS: PANTOPRAZOLE 40 MG TABLET PO SCH (09:56)
--- NOTE | 2018-04-15 12:18 | ADVANCE CARE PLANNING NOTE ---
Advance Care Planning - Date/Time Date: 04/15/18 Time: 12:05 - Purpose of encounter Text: Educate the patient on his disease and ask what his goals are in context of that - Parties in attendance Parties in attendance: , patient, hospitalist - Decisional capacity Decisional capacity of: The patient is completely intact. He is alert, oriented, lucid historian. Using teach back mechanism he is able to tell me what is wrong with him. - Subjective/Patient's story Subjective/Patient's story: He was born in [place]. 1 of 8 kids. His dad move them to [facility] when he was still little. Dad worked in the [id number] business. 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 for short time for his first and never had any children with her and it did not take. 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 When he lived in [place] he flew his own Cessna's to get from construction site to construction site. He met his second when he was 26. He had gone down from [place] to visit his dad in [facility]. She was living next door to his father. They moved up to the [facility] region near [place] and into [place]. He helped a friend move up to [facility] in the . [place] kept on [place] and left it so much that he moved up here in 1976. He retired in 2001. He has smoked all of his life. Continues to smoke. He is very fatalistic and says that it is the choice he made and he likes doing it. His lungs have been deteriorating over the years. Coughing and wheezing and sticky phlegm production are an ongoing real for him. About 10 years ago he was given a formal diagnosis of emphysema. In about 2 years ago he was put on nasal cannula oxygen at home. Life is pretty sedentary. He putters around the house. But he still able to do his activities of daily living with regards to hygiene, eating, dressing. He lives with his second . They have been ever since he was 26 and she was 24. He has several children but none live in the area. His son who lives in [place] is a retired [employer] worker. Son comes over every week to every other week. He comes over for dinner, or to have lunch, help around the house with mowing the lawn etc. His other children come once or twice a year. He still feels very close to them. He spends his days piddling around in his shop. He likes to take things apart. Lawnmowers, weedeater's, vacuum enamel burner, shop vacs , etc. He fixes his own and he fixes his kids. He has been anywhere from an hour in the shop to 10 hours of the project keeps him entertained. Every once in a while he turns on the radio to listen to music. Between his children's visits and his hobby, he is a very content lizz I explained the anatomy of emphysema and interstitial lung disease. I explained why emphysema results in increased oxygen need. I also explained how the scarring and interstitial lung disease he has is very severe and why he feels particularly short of breath now. He has had an increased oxygen need since he has been in this hospital. We have not been able to decrease that need. - Objective/Medical story Objective/Medical Story: Elderly gentleman who lives in his own home with a second . They have been since he was 26 years old. He has had emphysema for about 10 years and has been on home O2 for about 2 years. He continues to smoke about 1 pack per day. Started smoking at the age of 19. He has really not had many encounters with [facility]. He has not been admitted multiple times for pneumonia nor has he had many encounters in the emergency room. His primary care provider is Tom Biswas. On review of systems he has constant daily cough. Constant phlegm production. It is sticky, mild to moderate in amount, difficult to bring up. He started noticing increasing cough and slightly worse shortness of breath a week ago. Nothing that he thought would not go away on its own. No one else is sick, no one else has a cold. Over the next 5 days his dyspnea on exertion worsened to the point that he was severely short of breath just at rest. He did note that he had a runny nose that got worse, and it started to make more phlegm. He is usually a 95% saturation with 3 L nasal cannula. With this episode he started having his saturations go into the high 80s. He went to go see his primary care provider and because his hypoxia was so severe, he was sent to the emergency room via EMS. Initially he was treated as COPD exacerbation with possible pneumonitis because of the severe interstitial lung changes on chest x-ray. He responded to that treatment but continues to desaturate to the 70s and even into the 60s when his oxygen falls off his nose. He has been on oxygen, nebulizers, steroids. I wanted to make sure that we were not dealing with interstitial pulmonary edema from congestive heart failure and echocardiogram was done. He does not have congestive heart failure. Echocardiogram shows him to have a normal left ventricular ejection fraction of 55-60%. Indeterminate diastolic function. No regional wall motions abnormalities. Moderate right ventricular enlargement. Right ventricular systolic function is normal. Right ventricular systolic pressure at rest is 52 mmHg. No significant valvular heart disease. I did a high-resolution CT scan of his chest and he has hyperinflated lungs. Calcified granulomas on the left. Apical predominant centrilobular emphysema. Widespread mild peripheral reticulation bilaterally, worse at the right lung base, without honeycombing. No consolidation, no groundglass infiltrates. Small bilateral pleural effusions. No bronchiectasis. He has improved with regards to coughing and shortness of breath. But he desaturates very very easily if nasal cannula oxygen is off of him. I have explained his disease status. We are going to be ordering a trilogy evaluation form. He will need high flow nasal cannula oxygen but to keep the FiO2 at 2-3 L. We have definitely noticed that if he goes above that he gets more somnolent in terms of his respiratory drive. - Goals of Care Goals of care determinations: I asked if there are any other things he wanted to accomplish in life. He shrugs his shoulders and says while there is many things he would like to have done, there is nothing big that stands out that he regrets not doing. He feels that he has had a great life. Loves his and kids. Loves piddling around in his shop and he gets great satisfaction from this. He does not ever want to be placed in a SNF. - Plan Plan: I would like him to go see his primary care provider and discuss what his plans for his future are. Let Dr. Biswas know that he would like to go home and avoid hospitalizations as much as possible. He doesn't ever want to be placed in a SNF. With this in mind, I am also requesting Dr. Biswas order a palliative care consult. I think this patient has plenty of lead time to establish relationship with a palliative pet caretaker to then start establishing further goals for the future. The patient is already telling me that he would like to avoid hospitalization as much as possible. He does not want to be resuscitated. He does not want intubation, chest compressions, tube feedings. While he is willing to do treatment such as the trilogy, vest percussion, Mucinex, increase intake water, he does not know how much more procedures or specialist he wants to see. I told him to make sure he talks to Dr. Biswas about whether a pulmonary customer service and sales consultant might help or not. Dr. Biswas may be able to take over that role without the patient needing to do a lot more than that. We still start to get the Trilogy non in vasive ventilatory support ready. It may take until 04/17 and he is willing to wait until then POLST form completed. - Code Status Code Status: Do Not Attempt Resuscitation - Time Spent on Advance Care Planning Time spent on advance care plannin minutes.
--- NOTE | 2018-04-15 13:32 | PROVIDER PROGRESS NOTE ---
Subjective - Prog Note Date Prog Note Date: 04/15/18 Prog Note Time: 13:30 - Subjective Pt reports feeling: No change Subjective: He feels that he is improved from How he was on admission. But not much more than that. Every time he has His nasal cannula off he desaturates severely. It is very difficult for him to get up to go to the bathroom. He is able to stay in bed is long as he is just speaking. He does not short of breath doing that. No change in cough, no fever, no hemoptysis. Current Medications - Current Medications Current Medications: Active Medications Acetaminophen (Tylenol) 650 mg PO Q4HR PRN PRN Reason: Pain 1 to 4 Albuterol () 2.5 mg INH RTQ4H PRN PRN Reason: Wheezing Last Admin: 04/14/18 05:18 Dose: 2.5 mg Albuterol/Ipratropium (Duoneb) 3 ml INH RTQID [facility] Last Admin: 04/15/18 12:27 Dose: 3 ml Atenolol (Tenormin) 50 mg PO DAILY [facility] Last Admin: 04/15/18 09:37 Dose: 50 mg Calcium Carbonate/Glycine (Tums) 500 mg PO BID PRN PRN Reason: INDIGESTION Last Admin: 04/13/18 14:06 Dose: 500 mg Azithromycin 500 mg/ Sodium (Chloride) 250 mls @ 250 mls/hr IV Q24H [facility] Last Infusion: 04/14/18 17:27 Dose: Infused Ceftriaxone Sodium 2 gm/ (Sodium Chloride) 100 mls @ 200 mls/hr IV DAILY [facility] Last Infusion: 04/15/18 10:09 Dose: Infused Methylprednisolone (Solu-Medrol (40mg Vial)) 40 mg IVP TID [facility] Last Admin: 04/15/18 09:56 Dose: Not Given Mirtazapine (Remeron) 15 mg PO QPM [facility] Last Admin: 04/14/18 21:34 Dose: 15 mg Montelukast Sodium (Singulair) 10 mg PO QPM PRN PRN Reason: ALLERGIES Ondansetron HCl (Zofran Inj) 4 mg IVP Q6HR PRN PRN Reason: Nausea / Vomiting Last Admin: 04/13/18 14:51 Dose: 4 mg Ondansetron HCl (Zofran Odt) 4 mg TL Q6HR PRN PRN Reason: Nausea / Vomiting Oxycodone HCl (Roxicodone) 5 mg PO Q4HR PRN PRN Reason: Pain 5 to 7 Pantoprazole Sodium (Protonix) 40 mg PO QDAC [facility] Last Admin: 04/15/18 09:56 Dose: Not Given Polyethylene Glycol (Miralax) 17 gm PO DAILY [facility] Last Admin: 04/15/18 09:37 Dose: 17 gm Sodium Chloride (Normal Saline Flush 0.9%) 10 ml IVP PRN PRN PRN Reason: NEEDED PER PROVIDER ORDERS Last Admin: 04/14/18 21:34 Dose: 10 ml Sodium Chloride (Normal Saline Flush 0.9%) 10 ml IVP 0100,0900,1700 [facility] Last Admin: 04/15/18 09:40 Dose: 10 ml Aspirin 81 mg PO DAILY 12/19/12 Atenolol [Tenormin] 50 mg PO DAILY 12/19/12 Levalbuterol [Xopenex] 1.25 mg INH Q6H PRN 12/19/12 Pantoprazole Sodium [Protonix] 40 mg PO DAILY 12/19/12 metFORMIN [Glucophage] 500 mg PO BID 10/14/14 Mirtazapine [Mirtazapine] 15 mg PO QPM 04/12/18 Montelukast Sodium 10 mg PO QPM PRN 04/12/18 Tiotropium Lewis [Spiriva Respimat] 2 puffs IH DAILY 04/12/18 Objective - Vital Signs/Intake & Output Reviewed Vital Signs: Yes Vital Signs: Vital Signs x48h Temp Pulse Pulse Resp BP Pulse Ox 04/15/18 12:57 36.6 C 70 19 148/59 H 90 L 04/15/18 12:27 63 26 H 04/15/18 07:41 36.6 C 78 18 149/66 H 84 L 04/15/18 07:28 83 28 H Intake & Output: Intake & Output 04/12/18 04/13/18 04/14/18 04/15/18 23:59 23:59 23:59 23:59 Intake Total 1430 1850 1160 680 Output Total 921 601 4457 Balance 1255 1850 760 -570 - Objective General Appearance: positive: No acute distress, Alert, Other (Thin lanky elderly gentleman with a azar, mustache, slightly long here. Comfortable as he sits in the bed watching TV and talking to his ) Eyes Bilateral: positive: PERRL, EOMI ENT: positive: Pharynx nml Neck: positive: No JVD. negative: Stiff neck, Carotid bruit Respiratory: positive: Chest non-tender, Wheezes, Rales, Other (The Velcro crackles around his back again but not nearly as loud as it was on admission. It is bilateral worse in the lower lung sahu). negative: Rhonchi Cardiovascular: positive: Regular rate & rhythm, Systolic murmur. negative: Gallop/S4 Abdomen: positive: Non-tender, No organomegaly, Nml bowel sounds, No distention Skin: positive: Warm, Dry Extremities: positive: Full ROM, No pedal edema Neurologic/Psychiatric: positive: Oriented x3, CN's nml (2-12), Motor nml - Lab Results Fish Bones: 04/15/18 06:30 04/15/18 06:30 Other Labs: Lab Results x24hrs 04/15/18 04/15/18 04/14/18 Range/Units 06:30 06:30 17:52 WBC 8.6 (4.8-10.8) x10^3/uL RBC 3.74 L (4.70-6.10) 10^6/uL Hgb 9.9 L (14.0-18.0) g/dL Hct 30.3 L (42.0-52.0) % MCV 81.1 (80.0-94.0) fL MCH 26.4 L (27.0-31.0) pg MCHC 32.5 (32.0-36.0) g/dL RDW 14.7 (12.0-15.0) % Plt Count 274 (130-450) 10^3/uL MPV 7.6 (7.4-11.4) fL Neut # (Auto) 7.8 H (1.5-6.6) 10^3/uL Lymph # (Auto) 0.6 L (1.5-3.5) 10^3/uL Robeson # (Auto) 0.2 (0.0-1.0) 10^3/uL Eos # (Auto) 0.0 (0.0-0.7) 10^3/uL Baso # (Auto) 0.0 (0.0-0.1) 10^3/uL Absolute Nucleated RBC 0.00 x10^3/uL Nucleated RBC % 0.0 /100WBC Bld Gas Analysis Time 1800 Sample Site RIGHT RADIAL ABG pH 7.34 L (7.35-7.45) ABG pCO2 81 H* (34-45) mmHg ABG pO2 85 (80-100) mmHg ABG HCO3 42.4 H (22.0-26.0) mmol/L ABG Total CO2 44.8 H* (21.0-29.0) MMOL/L ABG O2 Saturation 96 (94-98) % ABG Oximetry Spot Check 97 % ABG Base Excess 14.0 H (-2.0-3.0) mmol/L Beltran Test POSITIVE Respiration Rate 28 b/min O2 Delivery Device OXYMIZER O2 Liters/Min 7.00 LPM Sodium 134 L (135-145) mmol/L Potassium 5.2 H (3.5-5.0) mmol/L Chloride 88 L (101-111) mmol/L Carbon Dioxide 41 H* (21-32) mmol/L Anion Gap 5.0 L (6-13) BUN 19 (6-20) mg/dL Creatinine 0.7 (0.6-1.2) mg/dL Estimated GFR (MDRD) 108 (>89) Glucose 213 H (70-100) mg/dL Calcium 9.3 (8.5-10.3) mg/dL ABX Reporting Has patient been on IV antibiotics over the past 48 hours?: Yes Assessment/Plan - Problem List (1) Interstitial lung disease Impression: He presents as a chronic respiratory failure patient from his COPD. Has had COPD for 10 years and is on home O2 for 2 years. In the last week he has had progressive cough, dyspnea at rest, increasing chest congestion. In the emergency room he was afebrile but spiked a temperature once he got to the floor. White cell count was elevated. Chest x-ray is equivocal for either interstitial infiltrate or interstitial pulmonary edema.His HCO3 continues to be high and indicates the metabolic acidosis from his resp failure is not much improved even though he feels improved. It also doesn't help that he lets his O2 slip off and he drops his sats severely. But he's not even aware of it. Blood gases were done yesterday. Confirm the chronic hypoxia and hypercapnia. Well compensated. Workup shows him to have severe interstitial lung disease in the lower lobes predominantly with centrilobular emphysema in the upper lobes. His right ventricle is enlarged but no systolic dysfunction. In his right ventricular systolic pressures are elevated. Plan: Although his labs do not show much improvement, the patient continues to state that he is better. Oxygen requirement has not increased when he regularly wears it. I ended up doing an arterial blood gas as opposed to a venous blood gas. Please refer to advanced care planning discussion (2) COPD exacerbation Impression: Still wheezing on lung exam but his rough rub Had resolved, now back. I think this is his interstitial lung disease. Day #4 of Rocephin and azithromycin Respiratory cultures show normal respiratory elliot Continue IV steroids, duo neb fixed dose schedule, as needed albuterol He may be at baseline status. It is difficult to tell. But every time his oxygen falls off he becomes severely hypoxic. We have ordered trilogy evaluation. In the outpatient setting I have encouraged him to follow-up with his primary care provider to see his primary care provider can meet his needs or does he need to be referred to pulmonology for further treatment. (3) Interstitial lung disease Impression: Seen on chest x-ray and much worse than previous chest x-ray in the past. Echocardiogram has been done and shows him to have predominantly right-sided heart failure. Because this does not explain the interstitial changes, I ordered a CT of the chest to assess his fibrosis and emphysema. Results are as follows: IMPRESSION: 1. Hyperinflation with apical predominant centrilobular emphysema and peripheral reticulation, worse than prior, worst at the right lung base. 2. Small bilateral pleural effusions. 3. Old granulomatous disease in the left lung and spleen. Severity of disease discussed and explained to patient and his . Please refer to advanced care planning discussion .
[2018-04-15 13:58] LABS: RED BLOOD COUNT 3.87 10^6/uL (4.70-6.10)
[2018-04-15 14:15] LABS: % IRON SATURATION 12 % (20-50); IRON 25 ug/dL (45-182); TOTAL IRON BINDING CAPACITY 209 ug/dL (250-450); TRANSFERRIN 149 mg/dL (180-329)
[2018-04-15] MEDS: SODIUM CHLORIDE FLUSH 0.9% 10 ML SYRINGE IVP PRN (14:26)
[2018-04-15 14:31] LABS: FERRITIN 132.8 ng/mL (23.9-336.2)
[2018-04-15] MEDS: AZITHROMYCIN INJ 500 MG in SODIUM CHLORIDE 0.9% 250 ML IV SCH (16:59)
[2018-04-15] MEDS ORDERED: MAGNESIUM HYDROXIDE 2,400 MG/30 ML UDC PO ONE (21:00)
[2018-04-15] MEDS: MIRTAZAPINE 15 MG TABLET PO SCH (21:04)
[2018-04-16] MEDS: methylPREDNISolone SUCCINATE 40 MG/ML VIAL IVP SCH (06:40)
[2018-04-16] MEDS: PANTOPRAZOLE 40 MG TABLET PO SCH (06:42)
[2018-04-16] MEDS: IPRATROPIUM/ALBUTEROL 3 ML NEB INH SCH ×4 (07:10→19:35)
[2018-04-16] MEDS: ATENOLOL 25 MG TABLET PO SCH (08:27)
[2018-04-16] MEDS: POLYETHYLENE GLYCOL 3350 17 GM PACKET PO SCH (08:27)
[2018-04-16] MEDS: SODIUM CHLORIDE FLUSH 0.9% 10 ML SYRINGE IVP SCH ×2 (08:27→16:10)
[2018-04-16] MEDS: cefTRIAXone 2 GM in SODIUM CHLORIDE 0.9% MINIBAG 100 ML IV SCH (08:27)
--- NOTE | 2018-04-16 10:27 | PROVIDER PROGRESS NOTE ---
Subjective - Prog Note Date Prog Note Date: 04/16/18 Prog Note Time: 10:21 - Subjective Subjective: He is watching football this morning eating his breakfast. Looking forward to the day so he can watches football. He got up again to go to the bathroom this morning and desaturated severely. He did not take his oxygen with him. He otherwise wants to go home. Could have gone home 2 days ago as far as he was concerned. Cough is stable. Phlegm production is stable. Current Medications - Current Medications Current Medications: Active Medications Acetaminophen (Tylenol) 650 mg PO Q4HR PRN PRN Reason: Pain 1 to 4 Albuterol () 2.5 mg INH RTQ4H PRN PRN Reason: Wheezing Last Admin: 04/14/18 05:18 Dose: 2.5 mg Albuterol/Ipratropium (Duoneb) 3 ml INH RTQID [facility] Last Admin: 04/16/18 07:10 Dose: 3 ml Atenolol (Tenormin) 50 mg PO DAILY [facility] Last Admin: 04/16/18 08:27 Dose: 50 mg Calcium Carbonate/Glycine (Tums) 500 mg PO BID PRN PRN Reason: INDIGESTION Last Admin: 04/13/18 14:06 Dose: 500 mg Azithromycin 500 mg/ Sodium (Chloride) 250 mls @ 250 mls/hr IV Q24H [facility] Last Infusion: 04/15/18 17:59 Dose: Infused Ceftriaxone Sodium 2 gm/ (Sodium Chloride) 100 mls @ 200 mls/hr IV DAILY [facility] Last Infusion: 04/16/18 08:57 Dose: Infused Methylprednisolone (Solu-Medrol (40mg Vial)) 40 mg IVP TID [facility] Last Admin: 04/16/18 06:40 Dose: 40 mg Mirtazapine (Remeron) 15 mg PO QPM [facility] Last Admin: 04/15/18 21:04 Dose: 15 mg Montelukast Sodium (Singulair) 10 mg PO QPM PRN PRN Reason: ALLERGIES Ondansetron HCl (Zofran Inj) 4 mg IVP Q6HR PRN PRN Reason: Nausea / Vomiting Last Admin: 04/13/18 14:51 Dose: 4 mg Ondansetron HCl (Zofran Odt) 4 mg TL Q6HR PRN PRN Reason: Nausea / Vomiting Oxycodone HCl (Roxicodone) 5 mg PO Q4HR PRN PRN Reason: Pain 5 to 7 Pantoprazole Sodium (Protonix) 40 mg PO QDAC [facility] Last Admin: 04/16/18 06:42 Dose: 40 mg Polyethylene Glycol (Miralax) 17 gm PO DAILY [facility] Last Admin: 04/16/18 08:27 Dose: 17 gm Sodium Chloride (Normal Saline Flush 0.9%) 10 ml IVP PRN PRN PRN Reason: NEEDED PER PROVIDER ORDERS Last Admin: 04/15/18 14:26 Dose: 20 ml Sodium Chloride (Normal Saline Flush 0.9%) 10 ml IVP 0100,0900,1700 [facility] Last Admin: 04/16/18 08:27 Dose: 10 ml Aspirin 81 mg PO DAILY 12/19/12 Atenolol [Tenormin] 50 mg PO DAILY 12/19/12 Levalbuterol [Xopenex] 1.25 mg INH Q6H PRN 12/19/12 Pantoprazole Sodium [Protonix] 40 mg PO DAILY 12/19/12 metFORMIN [Glucophage] 500 mg PO BID 10/14/14 Mirtazapine [Mirtazapine] 15 mg PO QPM 04/12/18 Montelukast Sodium 10 mg PO QPM PRN 04/12/18 Tiotropium [place] [Spiriva Respimat] 2 puffs IH DAILY 04/12/18 Objective - Vital Signs/Intake & Output Reviewed Vital Signs: Yes Vital Signs: Vital Signs x48h Temp Pulse Pulse Resp BP Pulse Ox 04/16/18 08:00 36.8 C 68 26 H 154/73 H 90 L 04/16/18 07:11 55 L 22 Intake & Output: Intake & Output 04/13/18 04/14/18 04/15/18 04/16/18 23:59 23:59 23:59 23:59 Intake Total 1850 1160 1566 920 Output Total 400 5 1000 Balance 1850 756 -459 -80 - Objective General Appearance: positive: Alert, Mild distress (as far as he's concerned he' s at baseline and doesn't seem to understand why we are so alarmed at his hypoxia off of O2 even for a few minutes) Eyes Bilateral: positive: PERRL, EOMI ENT: positive: Pharynx nml Neck: negative: No JVD, Stiff neck, Carotid bruit Respiratory: positive: Chest non-tender, Rales (but they are from his interstitial lung disease NOT CHF. the rub comes and goes during the day), Other (he does get tachypneic with exertion) Cardiovascular: positive: Irregularly irregular, Systolic murmur, Friction rub. negative: Gallop/S4 Abdomen: positive: Non-tender, No organomegaly, Nml bowel sounds, No distention Extremities: positive: Full ROM, No pedal edema Neurologic/Psychiatric: positive: Oriented x3, CN's nml (2-12), Motor nml - Lab Results Fish Bones: 04/15/18 06:30 04/15/18 06:30 Other Labs: Lab Results x24hrs 04/15/18 04/15/18 04/15/18 Range/Units 13:50 13:50 13:50 RBC (4.70-6.10) 10^6/uL Reticulocyte % (Auto) (0.5-2.3) % Absolute Retic (0.020-0.110) 10^6/uL Iron 25 L (45-182) ug/dL TIBC 209 L (250-450) ug/dL % Saturation 12 L (20-50) % Transferrin 149 L (180-329) mg/dL Ferritin 132.8 (23.9-336.2) ng/mL Lactate Dehydrogenase 88 L (91-225) IU/L Vitamin B12 2320 H (180-914) pg/mL 04/15/18 Range/Units 13:50 RBC 3.87 L (4.70-6.10) 10^6/uL Reticulocyte % (Auto) 1.03 (0.5-2.3) % Absolute Retic 0.040 (0.020-0.110) 10^6/uL Iron (45-182) ug/dL TIBC (250-450) ug/dL % Saturation (20-50) % Transferrin (180-329) mg/dL Ferritin (23.9-336.2) ng/mL Lactate Dehydrogenase (91-225) IU/L Vitamin B12 (180-914) pg/mL ABX Reporting Has patient been on IV antibiotics over the past 48 hours?: Yes Assessment/Plan - Problem List (1) Acute on chronic respiratory failure with hypoxia and hypercapnia Impression: He presents as a chronic respiratory failure patient from his COPD. Has had COPD for 10 years and is on home O2 for 2 years. In the last week he has had progressive cough, dyspnea at rest, increasing chest congestion. In the emergency room he was afebrile but spiked a temperature once he got to the floor. White cell count was elevated. Chest x-ray is equivocal for either interstitial infiltrate or interstitial pulmonary edema. His HCO3 continues to be high and indicates the respiratory acidosis and compensatory metabolic alkalosis from his resp failure is not much improved even though he feels improved. It also doesn't help that he lets his O2 slip off and he drops his sats severely. But he's not even aware of it. He keeps on doing it and walked to the bathroom without O2 and terrible drop of sats to 70's. Blood gases were done. Confirm the chronic hypoxia and hypercapnia. Well compensated. Workup shows him to have severe interstitial lung disease in the lower lobes predominantly with centrilobular emphysema in the upper lobes. His right ventricle is enlarged but no systolic dysfunction. In his right ventricular systolic pressures are elevated. Plan: Although his labs do not show much improvement, the patient continues to state that he is better. Oxygen requirement has not increased when he regularly wears it. I ended up doing an arterial blood gas as opposed to a venous blood gas. Please refer to advanced care planning discussion He is requiring nocturnal and daytime ventilation. Home BiPAP insufficient due to severity of his COPD/interstitial lung disease. These two things are the primary cause of his hypoxia and hypercapnea. I have strongly encouraged him to wear his O2 AT ALL TIMES. He promises to do so. (2) COPD exacerbation Impression: Still wheezing on lung exam but his rough rub Had resolved, now back. I think this is his interstitial lung disease. Day #5 of Rocephin and azithromycin Respiratory cultures show normal respiratory elliot Continue IV steroids, duo neb fixed dose schedule, as needed albuterol He may be at baseline status. It is difficult to tell. But every time his oxygen falls off he becomes severely hypoxic. We have ordered trilogy evaluation. In the outpatient setting I have encouraged him to follow-up with his primary care provider to see his primary care provider can meet his needs or does he need to be referred to pulmonology for further treatment. (3) Interstitial lung disease Impression: Seen on chest x-ray and much worse than previous chest x-ray in the past. Echocardiogram has been done and shows him to have predominantly right-sided heart failure. Because this does not explain the interstitial changes, I ordered a CT of the chest to assess his fibrosis and emphysema. Results are as follows: IMPRESSION: 1. Hyperinflation with apical predominant centrilobular emphysema and peripheral reticulation, worse than prior, worst at the right lung base. 2. Small bilateral pleural effusions. 3. Old granulomatous disease in the left lung and spleen. Severity of disease discussed and explained to patient and his . Please refer to advanced care planning discussion (4) Anemia Impression: iron deficiency. check stool for occult blood. check CEA. may be due to nutritional deficiency with his lack of eating. Start iron po. Laboratory Tests 04/15/18 04/15/18 04/15/18 13:50 13:50 13:50 Iron 25 L TIBC 209 L % Saturation 12 L Transferrin 149 L Ferritin 132.8 Lactate Dehydrogenase 88 L Vitamin B12 2320 H (5) Dyspepsia Impression: on 04/13 had indigestion with chest burning. Tums took care of it. Troponin were < 0.04 or 0.04. EKG stable. No further dyspepsia reported. I worry because his hypoxia is severe enough to induce angina. (6) Hyperglycemia due to steroids. Impression: His glucose was 118 yesterday and now 200's. Will stop steroids today.
[2018-04-16] MEDS: SENNA 8.6 MG TABLET PO SCH (16:10)
[2018-04-16] MEDS: DOCUSATE SODIUM 250 MG CAPSULE PO SCH (16:10)
[2018-04-16] MEDS: AZITHROMYCIN INJ 500 MG in SODIUM CHLORIDE 0.9% 250 ML IV SCH (16:13)
[2018-04-16] MEDS: MIRTAZAPINE 15 MG TABLET PO SCH (20:27)
[2018-04-17] MEDS: SODIUM CHLORIDE FLUSH 0.9% 10 ML SYRINGE IVP SCH ×2 (03:16→08:58)
[2018-04-17] MEDS: IPRATROPIUM/ALBUTEROL 3 ML NEB INH SCH ×3 (06:18→15:06)
[2018-04-17] MEDS: PANTOPRAZOLE 40 MG TABLET PO SCH (06:21)
[2018-04-17] MEDS: POLYETHYLENE GLYCOL 3350 17 GM PACKET PO SCH (08:55)
[2018-04-17] MEDS: DOCUSATE SODIUM 250 MG CAPSULE PO SCH (08:56)
[2018-04-17] MEDS: SENNA 8.6 MG TABLET PO SCH (08:56)
[2018-04-17] MEDS: cefTRIAXone 2 GM in SODIUM CHLORIDE 0.9% MINIBAG 100 ML IV SCH (08:57)
[2018-04-17] MEDS: ATENOLOL 25 MG TABLET PO SCH (08:57)
--- NOTE | 2018-04-17 09:24 | Discharge Plan ---
Discharge Plan Disposition: Home Health Service Condition: Poor Prescriptions: Azithromycin 250 mg PO DAILY #5 tablet Diet: Regular Activity Restrictions: Activity as Tolerated (but you must wear your oxgen 28/02 even to go to coffee.) Shower Restrictions: No Driving Restrictions: Yes (I wouldn't recommend it. You are too short of breath. Short distance ok) Assistance Devices: Other (trilogy noninvasive ventilator at night) Additional Instructions or Follow Up instructions: You were admitted into the hospital because of acute shortness of breath. You already have chronic shortness of breath from emphysema. Are still an every day smoker. 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 Depending on how proactive you would like to be, the next step would be seeing a personnel training officer. Sometimes interstitial lung disease can be treated and reversed depending on the cause. At this time I think is from your smoking. But just in case, have Dr. Biswas send you to see pulmonology. Because your ability to do things is going to become less and less, I would recommend you see a palliative workforce investment act career manager. Dr. Biswas can order a palliative care consult for the consulted to go to your home. Speak to you and your , establish goals for how you want to live your life, and help you feel more comfortable. You are being sent home on a trilogy noninvasive ventilator to wear at night. I also need you to take 5 more days of antibiotic therapy. Please use your oxygen 24 hours a day. Even if you are going to [place] to drink coffee with the guys. After you have regained your strength while being at home, and had completed followup with the home health nurse, I strongly recommend you do pulmonary rehabilitation again. You have lost a lot of ground. This might gain use some strength and less shortness of breath See Dr. Biswas in the next 1-2 weeks. No Smoking: If you smoke, Please STOP! Call for help. Follow-up with: Tom Biswas MD [Primary Care Provider] -
[2018-04-17 15:52] VITALS: BP 133/58
--- NOTE | 2018-04-18 03:44 | DISCHARGE SUMMARY ---
Physician: Corinne Ingram MD DATE OF ADMISSION: 04/12/2018 DATE OF DISCHARGE: 04/17/2018 PRIMARY CARE PHYSICIAN: Tom Biswas MD. DISCHARGE DIAGNOSES 1. Acute on chronic respiratory failure with hypoxia and hypercapnia. 2. Chronic obstructive pulmonary disease with acute exacerbation. 3. Interstitial lung disease. 4. Iron deficiency anemia. 5. Dyspepsia. 6. Steroid-induced hyperglycemia. 7. Controlled type 2 diabetes mellitus, without complication, without long-term current use of insulin. 8. Tobacco abuse. MEDICATIONS AT DISCHARGE 1. Aspirin 81 mg a day. 2. Atenolol 50 mg a day. 3. Azithromycin 250 mg a day. 4. Levalbuterol 2 puffs via inhalation q.i.d. p.r.n. 5. Spiriva 2 puffs inhalation daily. 6. Protonix 40 mg daily. 7. Singulair 10 mg daily. 8. Mirtazapine 15 mg p.o. q.p.m. 9. Metformin 500 mg p.o. b.i.d. 10. Trilogy noninvasive ventilator. 11. Oxygen via nasal cannula 3-4 liters 28/02. PRINCIPAL PROCEDURE 1. Chest x-ray showing centrilobular emphysema and severe interstitial changes that are new from previous chest x-ray. 2. CT chest showing hyperinflated lungs with calcified granulomas on the left. Apical predominant centrilobular emphysema. Widespread mild peripheral reticulation bilaterally, worse at right lung base without honeycombing. No consolidation or ground glass infiltrates. 3. Echocardiogram with ejection fraction of 55% to 60%. Moderate right ventricular enlargement. Right ventricular systolic function normal. Mild increased left atrial volume and right atrial volume. Moderately abnormal right heart pressures with right ventricular systolic pressure at rest 52 mmHg. 4. Sputum culture is normal respiratory elliot. Patient is an exceedingly pleasant, 82-year-old man who lives in his own home with his . He is an inveterate smoker and has smoked since his teen years, and has not stopped. He was diagnosed with emphysema 10 years ago, but probably had symptoms before that. He has been on home O2 of 3 liters for 2 years. He thinks he was admitted once before to [facility] for COPD exacerbation, but he cannot remember what year that was. He also thinks he had an echocardiogram many years ago, but cannot remember when. He continues to smoke 1 pack per day. Five or 6 days ago, he developed worsening cough and slightly worse shortness of breath, and wheezing on a gentleman who coughs and is short of breath, and wheezes on a daily basis. He thought it was not anything serious and thought it would go away. No one else is sick. He did not have a fever, chills, change in the color of his phlegm. He did have some runny nose, increasing phlegm. With this worsening cough and shortness of breath, his O2 saturations were going down into the high 80s. He went to his primary care provider on the day of admission. While in clinic, his hypoxia was down into the low 80s percentage- peterson, and he was sent to the emergency room. HOSPITAL COURSE: While he was initially afebrile in the emergency room, he did spike a temperature when he came to [facility]. He was 39.6. Heart rate 52, and respirations 18-20 and nonlabored, but wheezing that you could hear across the room. Normotensive. He is found to have hypercapnia and hypoxia with acute on chronic respiratory failure from his COPD. He was initially treated as infectious pneumonitis with a temperature rise. Chest x-ray showed increasing bilateral interstitial opacities and we did a CT to make sure that it was not pulmonary edema. It, in fact, showed worsening interstitial changes from lung disease, not heart disease. Echocardiogram confirmed no left-sided failure. During his stay, his glucose was mildly elevated with the steroids we used. He peaked at 213. Once steroids were stopped, hyperglycemia went away. Of note, he does have a compensatory alkalosis metabolically with a carbon dioxide of 41. He is identified as having an iron deficiency anemia with a hemoglobin of 9.1. Iron is 25, TIBC 209, percent saturation 12, transferrin 149, ferritin 132 and B12 at 2320. CEA is 9. In adult smokers, a normal CEA is less than 5. As such, this patient may have a neoplasm that needs to be identified as the cause of his iron deficiency anemia. We focused on his lung disease. He is a very interesting gentleman, in that he seems to be well compensated with his hypoxemia. He likes to take his oxygen off to go to the bathroom, and drops his O2 saturations to 60%. He seems to be bemused by our alarm. He took off his oxygen at least 5 times while in the hospital, causing us to have a rapid response of multiple nurses and physicians. We would put the oxygen back on him, and he would do fine. That is when we decided to see if we could do noninvasive Trilogy. He does not seem to want to take it, but we explained that this could be the difference between life and for him if he desaturates that much. He wants to go to [employer], his favorite breakfast place, without oxygen, but I told him that is not possible. He needs to take oxygen with him to have coffee with the guys. He also cannot smoke in a room with oxygen because he could burn his house down. He did have dyspepsia one day. It was easily relieved by Tums, where EKG was negative and troponins were negative. He is discharged in stable condition but with a poor prognosis. I have explained to him that he might want to maximize some of his medical management. For instance, he is on Spiriva and levalbuterol but may benefit from a different long-acting bronchodilator, inhaled steroids. Could he have reversible interstitial lung disease. Not likely, but possible. Could he benefit from a pulmonary consult. The Trilogy is to be kept. I have encouraged him to stop smoking. PHYSICAL EXAMINATION VITAL SIGNS: Temperature is 36.4, pulse is 57, blood pressure 133/58, respirations 24, and 89% to 90% on 3 liters. GENERAL: He is a tall, lean, lanky, elderly gentleman with a low, rough voice. NECK: Shotty adenopathy of the neck. RESPIRATORY: No increased respiratory effort, no tachypnea. Lungs have coarse, almost Velcro-like lung sounds that come and go from his interstitial lung disease. Occasionally, he wheezes. HEART: PMI is normally placed, and he only has a very slight right ventricular lift. ABDOMEN: Soft, nontender with normal bowel sounds. EXTREMITIES: With slight clubbing, but no cyanosis or edema. He will get cyanotic if he drops his O2, where his nose turns blue and his fingertips turn blue. I would like him to go home with Home Health, to get RN and rehab. When he is done with Home Health and can then leave the house, he can hopefully be entered into a pulmonary rehabilitation program. Right now, he is so short of breath just getting up out of bed. He should take an iron tablet and vitamin C. Consider palliative care consult. Right now, he so easily desaturates that he is going home via BLS. Greater than 30 minutes was spent coordinating discharge. cc: Tom Biswas MD TD: 04/17/2018 19:58 MTDD
== END 2018-04-17 16:30 | disposition home health service (06) | DRG 189 ==
LOC: EDUNIT# → ED 12:33 → MS2 14:15
PROVIDERS: ADMIT Specialist; ATTEND Specialist
DX: J44.1 Chronic obstructive pulmonary disease with (acute) exacerbation (principal); J44.0 Chronic obstructive pulmonary disease with (acute) lower respiratory infection; J18.9 Pneumonia, unspecified organism; I48.91 Unspecified atrial fibrillation; E78.00 Pure hypercholesterolemia, unspecified; J96.21 Acute and chronic respiratory failure with hypoxia; J84.9 Interstitial pulmonary disease, unspecified; J43.9 Emphysema, unspecified; J96.22 Acute and chronic respiratory failure with hypercapnia; I48.2 Chronic atrial fibrillation; I10 Essential (primary) hypertension; R10.13 Epigastric pain; D50.9 Iron deficiency anemia, unspecified; H40.9 Unspecified glaucoma; E09.9 Drug or chemical induced diabetes mellitus without complications; T38.0X5D Adverse effect of glucocorticoids and synthetic analogues, subsequent encounter; Z66 Do not resuscitate; Z99.81 Dependence on supplemental oxygen; F17.210 Nicotine dependence, cigarettes, uncomplicated; Z79.82 Long term (current) use of aspirin; Z79.84 Long term (current) use of oral hypoglycemic drugs; Z79.51 Long term (current) use of inhaled steroids; Z87.19 Personal history of other diseases of the digestive system
CPT/HCPCS: 36415; 36600; 71045; 71250; 80048; 80053; 82270; 82378; 82607; 82728; 82803; 83540; 83615; 83690; 83880; 84466; 84484; 85025; 85044; 87070; 87205; 93005; 93306; 94640; 99283; 99284

== ENCOUNTER 2018-04-17 16:23 | Outpatient (CLI) | payer MEDICARE, OTHER | END 2018-04-17 16:24 | disposition home or self-care (01) | LOC: EMS 16:23 | PROVIDERS: ATTEND Surgery | DX: R06.02 Shortness of breath (principal) | CPT/HCPCS: A0425; A0429 ==

== ENCOUNTER 2018-05-05 13:58 | Outpatient (CLI) | payer MEDICARE, OTHER ==
--- NOTE | 2018-05-05 14:42 | CONSULTATION NOTE ---
Palliative Care Consultation - Referral Referring Provider: Dr Tom Biswas Time of Visit: 05/05/2018. 10:05 - 11:20 Referral setting: Home (Seen in home setting due to taxing and considerable effort required to leave the home due to significant SOA on 24-hr oxygen and Tr ilogy, and being housebound secondary to end-stage COPD and interstitial pulmonary disease.) Referral Reason: End Stage COPD - Information Sources Records reviewed: RN notes reviewed, Previous records reviewed History/Review of Systems obtained from: Patient, Family, Nursing Exam limitations: No limitations - History of Present Illness Brief History of Present Illness: Thank you, Dr. Biswas, for asking the palliative care consult service to be involved in the care of your patient. I am asked to provide support regarding end-stage COPD and [id number] interstitial lung disease, a recent decline in functional status, symptom management, and goals of care. 82 year old gentleman with 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 He is now on continuous oxygen plus Trilogy therapy, recuperating and rehabilitating at home with Home Health Nursing and Physical Therapy. Medical History: COPD for more than 10 years; HTN; chronic atrial fibrillation; moderate R ventricular enlargement with EF 55-60%; glaucoma and cataracts; cholecystectomy; osteoarthritis with shoulder arthroplasty; DM II controlled, not on insulin; steroid induced hyperglycemia; h/o gastritis; tobacco use disorder but has quit smoking during hospitalization -Present at today's visit is the patient, his spouse Lyly, and Lyly's brother and [id number]. -The patient and family report that patient's functionality and SOA has worsened over the past 4 months, culminating in his hospitalization. -He is now back at home, and house-bound on doctor's orders while recuperating. Patient is hopeful he can rehabilitate back to where he can go outside, mow his sahu, matt in his workshop, and drive his car. -He reports that he quit smoking during his hospitalization. He smoked 1PPD since the age of 19. He "quit just like that" saying it wasn't hard. He refused nicotine patches and did not need or want to use them. -His family notes that his coughing and phlegm has improved since he stopped smoking. -He is on continuous oxygen and family confirmed they're keeping the oxygen levels for O2 sats between 88-92%. O2 is currently set at 2L. -Family notes their concern that he often removes the oxygen canula when he uses the bathroom, and O2 sats fall. I provided education and reconfirmed that he should keep O2 on at all times -He is using Trilogy during the day and also at night, though has problems keeping the mask on. The Trilogy rep is scheduled to come out to review this. -During this visit he was breathing with the Trilogy mouthpiece respirator (mouthpiece, not the mask) throughout the course of the visit. -Family denies he has diabetes, that he's taking metformin for steroid use, by which they mean his inhaled steroids. -Different medical records indicate both DM and steroid-induced hyperglycemia. -Home Health Nursing is assisting with oxygen and managing COPD and medications. -PT has just done an evaluation this week, the plan is to have PT sessions 2x/week for 2 months for strength and balance retraining. Medical/Surgical History - Past Medical History Cardiovascular: reports: High cholesterol, Atrial fibrillation Respiratory: reports: COPD, Shortness of breath, Other (Interstitial lung disease) Neuro: reports: None GI: reports: GERD : reports: None HEENT: reports: Glaucoma Psych: reports: None Musculoskeletal: reports: None Derm: reports: None MRSA Hx?: No - Past Surgical History General: reports: EGD, Cholecystectomy, Colonoscopy Ortho: reports: Shoulder arthroplasty HEENT: reports: Cataracts Social History - Living Situation Living arrangement: At home Living Situation: With spouse/s.o. Support System: Lives with of 57 years in their [facility] that they've owned since 1976. They moved here from [place]. They have 4 adult children: 2 in [facility], 2 in [place] and one in [place], [place]. Family History - Family History Family History Comment/Other: Father age 93, old age. Mother age 38, stroke. & siblins are alive; 1 sibling from an [place]. His 4 children are all living and healthy as far as he knows. Medications/Allergies - Medications Home Medications: Ambulatory Orders Medication Instructions Recorded Confirmed Aspirin 81 mg PO DAILY 12/19/12 05/05/18 Atenolol [Tenormin] 50 mg PO DAILY 12/19/12 05/05/18 Pantoprazole Sodium [Protonix] 40 mg PO DAILY 12/19/12 05/05/18 metFORMIN [Glucophage] 500 mg PO BID 10/14/14 05/05/18 Mirtazapine 15 mg PO QPM 04/12/18 05/05/18 Montelukast Sodium 10 mg PO QPM PRN 04/12/18 04/12/18 Cavilon Durable Barrier Cream 1 ea TOP TID 05/05/18 Fluticasone/Vilanterol [Breo 1 puffs PO DAILY 05/05/18 05/05/18 Ellipta 200-25 Mcg INH] Ipratropium/Albuterol [Duoneb] 3 ml PO TID PRN 05/05/18 05/05/18 raNITIdine [Zantac] 150 mg PO BID PRN 05/05/18 05/05/18 - Allergies Allergies/Adverse Reactions: Allergies Allergy/AdvReac Type Severity Reaction Status Date / Time atorvastatin Allergy Intermediate Cramps Verified 12/23/13 14:23 Latex, Natural Rubber Allergy Intermediate blisters Verified 12/23/13 14:23 Sulfa (Sulfonamide Allergy Mild "sick Verified 12/23/13 14:23 Antibiotics) feeling" hydrocodone [Hydrocodone] AdvReac Mild "sick Verified 12/23/13 14:23 feeling" Review of Systems - Constitutional Constitutional: reports: Fatigue, Weakness, Weight loss (142 lbs on 04/27/18. His baseline range is 145-150 lbs. He is 69" high, BMI 21) - Ears, Nose & Throat Ears, Nose & Throat: reports: Hearing loss - Cardiovascular Cardiovascular: reports: Exertional dyspnea, Decr. exercise tolerance. denies: Palpitations, Chest pain, Edema - Respiratory Respiratory: reports: SOB at rest, SOB with exertion. denies: Cough (improved), Sputum production (improved) - Gastrointestinal Gastrointestinal: reports: Good appetite, Other (mild-moderate leakage of faeces). denies: Constipation, Black stools, Reflux/heartburn (improved) - Genitourinary Genitourinary: denies: Incontinence - Musculoskeletal Musculoskeletal: denies: Muscle pain, Back pain, Joint pain, Assistive devices, Transfer issues - Psychiatric Psychiatric: denies: Depression, Anxiety Physical Exam - Vital Signs Temperature: 96.1 F Pulse Rate: 56 O2 Saturation: 99 (on 2L air and Trilogy) Blood Pressure: 137/68 (wrist cuff) - Physical Exam General Appearance: positive: No acute distress, Alert Eyes Bilateral: positive: EOMI, No lid inflammation, Conjunctivae nml, No scleral icterus ENT: positive: No signs of dehydration Neck: positive: No JVD, Trachea midline Cardiovascular: positive: Regular rate & rhythm, No murmur Respiratory: positive: No respiratory distress, Diminished throughout, Diminished in bases (worse in bilateral bases). negative: Wheezes, Rales, Rhonchi Abdomen: positive: Non-tender, Soft, Nml bowel sounds Skin: positive: Pallor, Other (Mild redness in buttocks cleft, due to fecal matter on skin. Has recently started barrier cream) Neurologic/Psychiatric: positive: Oriented x3, Mood/affect nml Palliative Care - POLST Patient has POLST: Yes POLST Status: DNR, Selective Treatment Pain: No pain Tiredness/Fatigue: Mild (1-3) Drowsiness/Sedation: None Nausea: None Depression: None Anxiety: None Dyspnea: Severe (7-10) Constipation: No Feelings of wellbeing/Perceived Quality of Life: Fair Performance Status: Chronic SOB, on continual O2 2L, uses Trilogy regularly, uses nebulizer/DuoNebs 3x/day Ambulatory, only around house. Too weak, short of breath to go outside and work around his property. Mild bowel incontinence. - Palliative Care Discussion: Patient has POLST already signed, DNR and selective treatment, he wants hospitalization for reversible conditions. His goal is to rehabilitate to the point that he can enjoy his workshop, use his mower and tractor to mow the [place]hu on his 5-acre property. He has some acknowledgement of the progress and irreversibility of his lung disease but does lack some insight and is not compliant at times with medical advice. and family are concerned about his habit of taking off his oxygen when he goes to the toilet and his O2 sats dropping. The is conscientious about the goal of keeping his sats 88-93%. They are also concerned that he will not follow the exercise program PT is working on for him. I discussed these subjects, providing education and encouragement and anticipatory guidance. There's no indication of cognitive deficits; patient has medical decision making capacity. and patient would like to continue periodic palliative care oversight and monitoring. I provided them the palliative care information sheets and my card so they can contact me, and we set a follow up appointment for next month. Impression and Recommendations - Palliative Care Impression: 82 year old gentleman with severe end stage COPD and interstitial pulmonary disease recently hospitalized 04/12/18 - 04/17/18 for acute on chronic respiratory failure and acute exacerbation of COPD. He discharged home on continuous oxygen plus Trilogy therapy, is rehabilitating at home with Home Health Nursing and Physical Therapy. He has quit smoking and hopes to return to his prior baseline so he can do the activities he enjoys: mowing, tinkering in the workshop, etc. Family is concerned about his compliance, which has been an ongoing issue. Family and patient would benefit from ongoing palliative care oversight and support. Recommendations/Counseling Done: End stage COPD: Worse than previous baseline. Uses Trilogy throughout day and at night; Trilogy rep comes soon for mask adjustment. Using DuoNebs nebulizer TID. PCP discontinued Xopenex and Spiriva and started Breo Ellipta 200/25 daily. Need to confirm at next visit if he is still using montelukast. GERD: No symptoms, so signs of GI bleeding. Advised they can stop Pantoprazole, monitor for return of symptoms, and restart if indicated. He also has ranitidine 150mg PO BID PRN. Hyperglycemia: Patient and family deny he has diabetes; reports the metformin is due to steroid (inhalers) use. Chronic atrial fibrillation: Asymptomatic. Atenolol for rate control. Not on anticoagulation. Tobacco use disorder: Smoked 1 PPD since age 19, stopped smoking this month, during hospitalization. Declined nicotine patch. Some symptoms have already improved: cough, phlegm. Advanced care planning: Already has POLST which reflects patient's and family's wishes: DNR and selective treatment. Patient wants transfer to hospital for reversible conditions. Palliative care will provide oversight and monitoring. Provided education and encouragement about participating and following PT exercises and advice, and keeping oxygen on continuously. Time Spent: 75 minutes were spent with more than 50% of the time spent on counseling, education, anticipatory guidance, and coordination of care regarding chronic dyspnea and end-stage COPD.
== END 2018-05-05 13:59 | disposition home or self-care (01) ==
LOC: PC 13:58
PROVIDERS: ATTEND Nurse Practitioner
DX: Z51.5 Encounter for palliative care (principal); J44.9 Chronic obstructive pulmonary disease, unspecified; K21.9 Gastro-esophageal reflux disease without esophagitis; E11.65 Type 2 diabetes mellitus with hyperglycemia; T38.0X5A Adverse effect of glucocorticoids and synthetic analogues, initial encounter; I48.2 Chronic atrial fibrillation; J84.9 Interstitial pulmonary disease, unspecified; J96.11 Chronic respiratory failure with hypoxia; J96.12 Chronic respiratory failure with hypercapnia; I11.9 Hypertensive heart disease without heart failure; R15.9 Full incontinence of feces; Z87.891 Personal history of nicotine dependence; Z99.81 Dependence on supplemental oxygen; Z79.84 Long term (current) use of oral hypoglycemic drugs; Z66 Do not resuscitate; Z91.19 Patient's noncompliance with other medical treatment and regimen; Z79.899 Other long term (current) drug therapy
CPT/HCPCS: 99345

== ENCOUNTER 2018-05-31 10:10 | Outpatient (CLI) | payer MEDICARE, OTHER ==
--- NOTE | 2018-05-31 13:32 | CONSULTATION NOTE ---
Palliative Care Follow Up - Referral Referring Provider: Dr Biswas Time of Visit: 05/31/2018. 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 He is now on continuous oxygen plus Trilogy therapy, recuperating and rehabilitating at home with Home Health Nursing and Physical Therapy. Medical History: COPD for more than 10 years; HTN; chronic atrial fibrillation; moderate R ventricular enlargement with EF 55-60%; glaucoma and cataracts; cholecystectomy; osteoarthritis with shoulder arthroplasty; DM II controlled, not on insulin; steroid induced hyperglycemia; h/o gastritis; tobacco use disorder but has quit smoking during hospitalization -Patient appears improved from my initial visit: more alert, better skin color. He reports feeling better. -Home Health has DC'd him from RN care, he met the goals. -Home Health PT will DC him today, after the "outing" - walking with him around the property. -Spouse continues to be concerned that he leaves the house without his oxygen. We discussed this at length, I provided education and encouragement, he stated he would take oxygen with him in the future, to cafe or out on his property. However, his history is that he is noncompliant. -Today his SBP is elevated, 165/78. They report that the RN also said it was elevated at last visit but the RN visit report shows 130/66. -They will be seeing his commercial print salesman, Dr Luque from [facility], [place] and will ask about today's elevated reading. -He reports pain in L knee x several days, has not used any pain relief. They have Tylenol 500mg. I recommended 500-1,000mg up to three times daily as needed, not to exceed 3,000 mg (6 pills) per day -The patient reports he has restarted smoking but says 4-6 cigarettes today, although it could be more than that from his demeanor. We discussed this and he acknowledges the benefits of quitting again. Symptoms of increased phlegm and coughing have increased. -He is using Trilogy regularly though the mask comes off at night. I recommended they follow up with the Trilogy insurance service representative for a fitting. It is unclear whether the insurance service representative came after my first visit. -The patient has no GERD symptos and is almost out of pantoprazole, so they DC it when the 3 tablets have been used and see if symptoms returne. They have my refill script from last visit in case they want to restart. We also discussed starting ranitidine instead. Social History - Living Situation Living arrangement: At home Living Situation: With spouse/s.o. Support System: Lives with of 57 years in their [facility] that they've owned since 1976. They moved here from [place]. They have 4 adult children: 2 in [place], 2 in [place] and one in [place], [place]. Medications/Allergies - Medications Home Medications: Ambulatory Orders Medication Instructions Recorded Confirmed Aspirin 81 mg PO DAILY 12/19/12 05/31/18 Atenolol [Tenormin] 50 mg PO DAILY 12/19/12 05/31/18 metFORMIN [Glucophage] 500 mg PO BID 10/14/14 05/31/18 Mirtazapine 15 mg PO QPM 04/12/18 05/31/18 Cavilon Durable Barrier Cream 1 ea TOP TID 05/05/18 05/31/18 Fluticasone/Vilanterol [Breo 1 puffs PO DAILY 05/05/18 05/31/18 Ellipta 200-25 Mcg INH] Ipratropium/Albuterol [Duoneb] 3 ml PO TID PRN 05/05/18 05/31/18 Acetaminophen 1,000 mg PO TID PRN 05/31/18 05/31/18 - Allergies Allergies/Adverse Reactions: Allergies Allergy/AdvReac Type Severity Reaction Status Date / Time atorvastatin Allergy Intermediate Cramps Verified 12/23/13 14:23 Latex, Natural Rubber Allergy Intermediate blisters Verified 12/23/13 14:23 Sulfa (Sulfonamide Allergy Mild "sick Verified 12/23/13 14:23 Antibiotics) feeling" hydrocodone [Hydrocodone] AdvReac Mild "sick Verified 12/23/13 14:23 feeling" Review of Systems - Constitutional Constitutional: reports: Weight gain (152 lbs 05/31/18 on home scale. 147.7 on 05/17 home scale, 142 lbs on 04/27, not sure if home scale or clinic. His baseline is 145-150 lbs, 69" height.). denies: Poor appetite - Ears, Nose & Throat Ears, Nose & Throat: reports: Hearing loss - Cardiovascular Cardiovascular: reports: Exertional dyspnea, Decr. exercise tolerance. denies: Palpitations, Chest pain - Respiratory Respiratory: reports: Cough (increased since restarting smoking), Sputum produ ction (increased since restarting smoking), SOB at rest, SOB with exertion - Gastrointestinal Gastrointestinal: reports: Good appetite, Other (mild/moderate leakage of faeces). denies: Constipation - Genitourinary Genitourinary: reports: Incontinence. denies: Dysuria, Urgency - Musculoskeletal Musculoskeletal: reports: Joint pain (L knee pain, doesn't take pain medications) - Integumentary Integumentary: reports: Dryness - Psychiatric Psychiatric: denies: Depression, Anxiety Physical Exam - Vital Signs Temperature: 96.4 F Pulse Rate: 55 O2 Saturation: 93 Blood Pressure: 165/78 (arm cuff) - Physical Exam General Appearance: positive: No acute distress, Alert Eyes Bilateral: positive: No lid inflammation, Conjunctivae nml, No scleral icterus ENT: positive: No signs of dehydration Neck: positive: Trachea midline Cardiovascular: positive: Regular rate & rhythm, No murmur Respiratory: positive: No respiratory distress, Diminished throughout, Rhonchi (mild). negative: Wheezes Abdomen: positive: Non-tender, Soft, Nml bowel sounds Skin: positive: Bruising (hemosiderin staining, backs of hands) Extremities: positive: No pedal edema Neurologic/Psychiatric: positive: Oriented x3, Mood/affect nml Palliative Care - POLST Patient has POLST: Yes POLST Status: DNR, Selective Treatment - Palliative Care Discussion: Patient requested we sign a new POLST to change to no tube feeding. All other aspects remained the same: DNR and selective treatment, antibiotics to prolong life, and he wants hospitalization for reversible conditions. The physical therapist's last visit will be today, she is discharging him. 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 Unfortunately he has restarted smoking, he acknowledges this is not a positive development. Provided education and encouragement to consider stopping completely. He inquired again about whether the lung damage is reversible, I offered education that even though he can't reverse damage already done, stopping smoking will help prevent ongoing damage and improve his symptoms and quality of life. I also provided reiteration and education about keeping oxygen with him at all times. He admits he has sometimes gone to the cafe without the portable oxygen. Patient has history of not complying with medical advice. He does admit he still enjoys life and wants to live. 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 He has completed Home Health Nursing and Physical Therapy, but has unfortunately restarted smoking. 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 Medical compliance continues to be an ongoing concern, with him leaving the house without his oxygen, and smoking again. Palliative care will continue to provide support and oversight. Recommendations/Counseling Done: End stage COPD: Patient feels he's improved. He continues to use Trilogy throughout day and at night, but mask often falls off. Recommended they follow up again with Trilogy rep for mask adjustment. Using DuoNebs nebulizer and Breo Ellipta 200/25 daily. Provided education regarding always taking his oxygen with him. Tobacco use disorder: Patient has restarted smoking, he reports 4-6 cigarettes per day. Smoked 1 PPD since age 19, stopped during hospitalization. notes increased cough and phlegm. Provided education and encouragement to quit. Patient has declined nicotine patches. HTN: BP elevated today 165/78. Family reports it was elevated at the last RN visit. The patient is due for a visit with his commercial print salesman, Dr Luque at the [facility], [place] and will inquire about the increased BP readings. L knee pain: Recently worsened, he's not currently using any pain medications. He doesn't like to take pills but will try Tylenol 500mg, which they have on hand: 500-1,000mg up to TID PRN. Not to exceed 3,000mg (6 pills) per day. GERD: No symptoms, so signs of GI bleeding. Discussed benefits and burdens of discontinuing Pantoprazole, and they will DC it after their current supply runs out (about 3 tablets). They still have the refill script I wrote at last visit. If symptoms reappear, consider starting him on ranitidine 150mg PO BID. Chronic atrial fibrillation: Continue Atenolol for rate control. Not on anticoagulation. Advanced care planning: Re-signed a new POLST to change to no tube feeding. DNR and selective treatment remain the same. Patient wants transfer to hospital for reversible conditions. Follow up visit: 07/26 10:00 and as needed. Time Spent: 75 minutes were spent with more than 50% of the time spent on counseling, education, anticipatory guidance, and coordination of care regarding chronic dyspnea and end-stage COPD.
== END 2018-05-31 10:11 | disposition home or self-care (01) ==
LOC: PC 10:10
PROVIDERS: ATTEND Nurse Practitioner
DX: Z51.5 Encounter for palliative care (principal); J44.9 Chronic obstructive pulmonary disease, unspecified; J84.9 Interstitial pulmonary disease, unspecified; Z99.81 Dependence on supplemental oxygen; I11.9 Hypertensive heart disease without heart failure; E11.9 Type 2 diabetes mellitus without complications; Z91.19 Patient's noncompliance with other medical treatment and regimen; M25.562 Pain in left knee; Z72.0 Tobacco use; Z79.84 Long term (current) use of oral hypoglycemic drugs; Z79.51 Long term (current) use of inhaled steroids; Z79.899 Other long term (current) drug therapy; Z66 Do not resuscitate; K21.9 Gastro-esophageal reflux disease without esophagitis; I48.2 Chronic atrial fibrillation
CPT/HCPCS: 99350

== ENCOUNTER 2018-07-26 10:00 | Outpatient (CLI) | payer MEDICARE, OTHER ==
--- NOTE | 2018-07-26 15:48 | CONSULTATION NOTE ---
Palliative Care Follow Up - Referral Referring Provider: Dr Tom Biswas Time of Visit: 07/26/2018 Referral setting: Home (Seen in home setting due to taxing and considerable effort required to leave the home due to significant SOA on 24-hour oxygen and trilogy respirator, secondary to end-stage COPD and interstitial pulmonary disease.) Referral Reason: Elevated BP - Information Sources Records reviewed: Previous records reviewed History/Review of Systems obtained from: Patient, Family Exam limitations: No limitations - History of Present Illness Update Brief HPI Update: 82 year old gentleman with 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 He is now on continuous oxygen plus Trilogy therapy, recuperating and rehabilitating at home with Home Health Nursing and Physical Therapy. Medical History: COPD for more than 10 years; HTN; chronic atrial fibrillation; moderate R ventricular enlargement with EF 55-60%; glaucoma and cataracts; cholecystectomy; osteoarthritis with shoulder arthroplasty; DM II controlled, not on insulin; steroid induced hyperglycemia; h/o gastritis; tobacco use disorder but has quit smoking during hospitalization Patient continues to do well, stable at the new baseline of functionality and SOA, which is lower than previous baseline. He continues to smoke, up to about 10 cigarettes daily. He continues to socialize daily at the [facility] in [place] with 3-5 other regular customers. [place] also [place]. He does not always bring his oxygen tanks with him, something that worries his but he seems pretty persistent. He and his plan [facility] [place], he wants to drive and I approve this as long as he wears his oxygen during the entire car trip. He denies shortness of air when sedentary, but admits it with exertion. He reports some increase in GERD symptoms, mainly heartburn, and uses his ranitidine as needed for relief. He reports chronic pain in left knee is doing well. He uses nebulizer 1-2 times per day and Trilogy daily plus at night with the mask, though less frequently than previously. Social History - Living Situation Living arrangement: At home Living Situation: With spouse/s.o. Support System: Lives with of 57 years in their [facility] that they've owned since 1976. They moved here from [place]. They have 4 adult children: 2 in [place], 2 in [place] and one in [place], [place]. Medications/Allergies - Medications Home Medications: Ambulatory Orders Medication Instructions Recorded Confirmed Aspirin 81 mg PO DAILY 12/19/12 07/26/18 Atenolol [Tenormin] 50 mg PO DAILY 12/19/12 07/26/18 metFORMIN [Glucophage] 500 mg PO BID 10/14/14 07/26/18 Mirtazapine 15 mg PO QPM 04/12/18 07/26/18 Cavilon Durable Barrier Cream 1 ea TOP TID 05/05/18 07/26/18 Fluticasone/Vilanterol [Breo 1 puffs PO DAILY 05/05/18 07/26/18 Ellipta 200-25 Mcg INH] Ipratropium/Albuterol [Duoneb] 3 ml PO TID PRN 05/05/18 07/26/18 Acetaminophen 1,000 mg PO TID PRN 05/31/18 07/26/18 Lisinopril 10 mg PO DAILY 07/26/18 07/26/18 raNITIdine [Zantac] 150 mg PO BID PRN 07/26/18 07/26/18 - Allergies Allergies/Adverse Reactions: Allergies Allergy/AdvReac Type Severity Reaction Status Date / Time atorvastatin Allergy Intermediate Cramps Verified 12/23/13 14:23 Latex, Natural Rubber Allergy Intermediate blisters Verified 12/23/13 14:23 Sulfa (Sulfonamide Allergy Mild "sick Verified 12/23/13 14:23 Antibiotics) feeling" hydrocodone [Hydrocodone] AdvReac Mild "sick Verified 12/23/13 14:23 feeling" Review of Systems - Constitutional Constitutional: reports: Poor appetite (appetite decreased with resumption of smoking), Weight stable (152 lbs 07/26. 152 lbs 05/31. 147.7 05/17. 142 lbs 04/27.) - Ears, Nose & Throat Ears, Nose & Throat: reports: Hearing loss - Cardiovascular Cardiovascular: reports: Exertional dyspnea, Decr. exercise tolerance. denies: Chest pain, Edema - Respiratory Respiratory: reports: Cough (smoker's cough), SOB with exertion - Gastrointestinal Gastrointestinal: reports: Other (less appetite when he smokes). denies: Constipation - Genitourinary Genitourinary: denies: Dysuria, Incontinence - Musculoskeletal Musculoskeletal: reports: Limited range of motion, Other (L knee pain has improved. He controls it with Tylenol). denies: Assistive devices, Transfer issues - Integumentary Integumentary: reports: Dryness Physical Exam - Vital Signs Temperature: 96.8 F Pulse Rate: 65 O2 Saturation: 93 Blood Pressure: 178/87 - Physical Exam General Appearance: positive: No acute distress, Alert Eyes Bilateral: positive: EOMI, No lid inflammation, Conjunctivae nml, No scleral icterus ENT: positive: No signs of dehydration Neck: positive: No JVD, Trachea midline Cardiovascular: positive: Regular rate & rhythm, No murmur Respiratory: positive: Chest non-tender, No respiratory distress, Wheezes (mild; expiratory) Skin: positive: Dryness Extremities: positive: Nml appearance, No pedal edema Neurologic/Psychiatric: positive: Oriented x3, Mood/affect nml Palliative Care - POLST Patient has POLST: Yes POLST Status: DNR, Comfort Measures - Palliative Care Discussion: DNR and selective treatment, antibiotics to prolong life, and hospitalization for reversible conditions. He enjoys life, enjoys his daily cafe trips, is looking forward to seeing the grandkids at [place]. He ruefully acknowledges that he should quit smoking, that smoking is probably harming him. I agreed and supported this line of reasoning. 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 He has stabilized at a new lower baseline. He continues to enjoy his life and socializing with friends and family. He would like Palliative care to continue to provide support and oversight. Recommendations/Counseling Done: End stage COPD: Stabilzed at new baseline. Continues Breo Ellipta, nebulizer treatments 1-2x per day, and Trilogy respirator every day and at night with the mask. Is on 2L O2 but doesn't always take it with him on outings. HTN: BP elevated again today, at 178/84. [facility]. At my last visit it was 165/78. Family reports it was elevated at the last RN visit back in the fall. The patient forgot to speak to his bag presser about it, apparently it his BP was normal that day. I have started him on lisinopril 10mg daily, provided teaching on side effects and when to call me or PCP for concerns. Patient has 2 BP cuffs at home and will start monitoring his own BP. Tobacco use disorder: Increased to 10 cigarettes per day. L knee pain: Improved. Patient uses the Tylenol maybe twice daily, but only one 500mg tablet at a time. Not to exceed 3,000mg (6 pills) per day. GERD: Occasional symptoms. He has ranitidine 150mg PO BID prn. Chronic atrial fibrillation: Continue Atenolol for rate control. Not on anticoagulation. Advanced care planning: POLST in place: DNR and selective treatment. Patient wants transfer to hospital for reversible conditions. Follow up in September. Time Spent: 40 minutes were spent with more than 50% of the time spent on counseling, education, and coordination of care.
== END 2018-07-26 10:01 | disposition home or self-care (01) ==
LOC: PC 10:00
PROVIDERS: ATTEND Nurse Practitioner
DX: Z51.5 Encounter for palliative care (principal); J44.9 Chronic obstructive pulmonary disease, unspecified; J84.9 Interstitial pulmonary disease, unspecified; G89.29 Other chronic pain; M25.562 Pain in left knee; K21.9 Gastro-esophageal reflux disease without esophagitis; I48.2 Chronic atrial fibrillation; I11.9 Hypertensive heart disease without heart failure; E11.9 Type 2 diabetes mellitus without complications; Z99.81 Dependence on supplemental oxygen; Z79.84 Long term (current) use of oral hypoglycemic drugs; Z79.899 Other long term (current) drug therapy; Z72.0 Tobacco use; Z79.51 Long term (current) use of inhaled steroids; Z66 Do not resuscitate
CPT/HCPCS: 99349

== ENCOUNTER 2018-08-19 13:32 | Outpatient (CLI) | payer MEDICARE, OTHER | END 2018-08-19 13:33 | disposition critical access hospital (66) | LOC: EMS 13:32 | PROVIDERS: ATTEND Surgery | DX: R06.00 Dyspnea, unspecified (principal) | CPT/HCPCS: A0425; A0427 ==

== ENCOUNTER 2018-08-19 13:46 | Inpatient (IN) | payer MEDICARE, OTHER ==
--- NOTE | 2018-08-19 13:52 | ED Physician Documentation ---
PD HPI DYSPNEA - Stated complaint Stated Complaint: SOA - History obtained from History obtained from: Patient, EMS - History of Present Illness Timing - onset: Today (This is an 82-year-old gentleman with history of COPD and pulmonary fibrosis on 2.5 L of oxygen at home at baseline. He also wears CPAP at night. Reportedly the family found him sleeping and way too long still wearing his CPAP and somewhat altered. Paramedics were summoned and first responders found his sat to be in the 60s. He was administered a DuoNeb with relief. The patient says he feels fine, really is not coughing anymore than normal but does have a runny nose.) Review of Systems Constitutional: reports: Chills. denies: Fever Nose: reports: Rhinorrhea / runny nose Throat: denies: Sore throat Cardiac: denies: Chest pain / pressure, Palpitations Respiratory: reports: Dyspnea, Cough PD PAST MEDICAL HISTORY - Past Medical History Cardiovascular: High cholesterol, Atrial fibrillation Respiratory: COPD, Shortness of breath, Other (Interstitial lung disease) GI: GERD : None HEENT: Glaucoma Psych: None Musculoskeletal: None Derm: None - Past Surgical History Past Surgical History: Yes General: EGD, Cholecystectomy, Colonoscopy Ortho: Shoulder arthroplasty HEENT: Cataracts - Present Medications Home Medications: Ambulatory Orders Medication Instructions Recorded Confirmed Aspirin 81 mg PO DAILY 12/19/12 07/26/18 Atenolol [Tenormin] 50 mg PO DAILY 12/19/12 07/26/18 metFORMIN [Glucophage] 500 mg PO BID 10/14/14 07/26/18 Mirtazapine 15 mg PO QPM 04/12/18 07/26/18 Fluticasone/Vilanterol [Breo 1 puffs PO DAILY 05/05/18 07/26/18 Ellipta 200-25 Mcg INH] Ipratropium/Albuterol [Duoneb] 3 ml PO TID PRN 05/05/18 07/26/18 Lisinopril 10 mg PO DAILY 07/26/18 07/26/18 raNITIdine [Zantac] 150 mg PO BID PRN 07/26/18 07/26/18 Pantoprazole [Protonix] 40 mg PO DAILY 08/19/18 08/19/18 guaiFENesin [Mucinex] 08/19/18 - Allergies Allergies/Adverse Reactions: Allergies Allergy/AdvReac Type Severity Reaction Status Date / Time atorvastatin Allergy Intermediate Cramps Verified 08/19/18 13:54 Latex, Natural Rubber Allergy Intermediate blisters Verified 08/19/18 13:54 Sulfa (Sulfonamide Allergy Mild "sick Verified 08/19/18 13:54 Antibiotics) feeling" hydrocodone [Hydrocodone] AdvReac Mild "sick Verified 08/19/18 13:54 feeling" - Social History Does the pt smoke?: No Smoking Status: Current every day smoker Does the pt drink ETOH?: No Does the pt have substance abuse?: No - Immunizations Immunizations are current?: Yes - POLST Patient has POLST: Yes PD ED PE NORMAL - Vitals Vital signs reviewed: Yes (Sats are okay on arrival. He is febrile) - General General: Alert and oriented X 3, No acute distress - HEENT HEENT: PERRL, EOMI - Neck Neck: Supple, no meningeal sign, No bony TTP - Cardiac Cardiac: RRR, No murmur - Respiratory Respiratory: Other (Tight and rhonchorous throughout) - Abdomen Abdomen: Soft, Non tender - Back Back: No CVA TTP, No spinal TTP - Derm Derm: No rash - Extremities Extremities: No edema, No calf tenderness / cord - Neuro Neuro: Alert and oriented X 3, Normal speech Results - Vitals Vitals: Vital Signs - 24 hr 08/19/18 08/19/18 13:46 15:03 Temperature 38.8 C H Heart Rate 99 86 Respiratory 18 22 Rate Blood Pressure 158/99 H 143/54 H O2 Saturation 98 95 Oxygen O2 Source [] Nasal cannula O2 Source [] Nasal cannula O2 Source Nasal cannula Oxygen Flow Rate 2 - EKG (time done) 1355 Rate: Rate (enter#) (97) Rhythm: NSR [place]: LAD Intervals: Normal MD QRS: Normal Ischemia: Q waves (V1-V3). No: ST elevation c/w ischemia Computer interpretation: Agree with computer - Labs Labs: Laboratory Tests 08/19/18 08/19/18 08/19/18 14:14 14:29 14:29 WBC 11.5 H RBC 4.52 L Hgb 12.2 L Hct 37.2 L MCV 82.2 MCH 26.9 L MCHC 32.7 RDW 14.1 Plt Count 142 MPV 8.8 Neut # (Auto) 9.9 H Lymph # (Auto) 0.9 L [place] # (Auto) 0.6 Eos # (Auto) 0.0 Baso # (Auto) 0.1 Absolute Nucleated RBC 0.00 Nucleated RBC % 0.0 Sodium 136 Potassium 4.4 Chloride 95 L Carbon Dioxide 33 H Anion Gap 8.0 BUN 24 H Creatinine 1.1 Estimated GFR (MDRD) 64 L Glucose 107 H Lactic Acid Calcium 9.3 Total Bilirubin 0.7 AST 12 ALT 10 Alkaline Phosphatase 60 Troponin I Total Protein 7.3 Albumin 3.5 Globulin 3.8 Albumin/Globulin Ratio 0.9 L Lipase 23 Influenza A (Rapid) Negative Influenza B (Rapid) Negative 08/19/18 08/19/18 14:29 14:29 WBC RBC Hgb Hct MCV MCH MCHC RDW Plt Count MPV Neut # (Auto) Lymph # (Auto) [place] # (Auto) Eos # (Auto) Baso # (Auto) Absolute Nucleated RBC Nucleated RBC % Sodium Potassium Chloride Carbon Dioxide Anion Gap BUN Creatinine Estimated GFR (MDRD) Glucose Lactic Acid 0.8 Calcium Total Bilirubin AST ALT Alkaline Phosphatase Troponin I < 0.04 Total Protein Albumin Globulin Albumin/Globulin Ratio Lipase Influenza A (Rapid) Influenza B (Rapid) - Rads (name of study) 1v chest Radiology: EMP read contemporaneously (COPD, NAD) PD MEDICAL DECISION MAKING - ED course ED course: This is an 82-year-old PDA and pulmonary fibrosis who presents with an apparent exacerbation with pulse oximetry is in the 60s at home. His sat was better here and his examination was consistent with the diagnoses. He does have a mild white count, negative flu. Chest x-ray without acute abnormality but he was febrile. He was administered IV Rocephin and steroids here. But on ambulation he became quite hypoxic which necessitates admission. Spoke with the hospitalist for admission at 3:55 PM. Departure - Departure Disposition: [facility] DC/Xfer Clinical Impression: COPD exacerbation, Hypoxia Condition: Serious
--- NOTE | 2018-08-19 14:32 | XRAY Report ---
Reason: dyspnea Procedure Date: 08/19/2018 Accession Number: [id number] / [id number] Procedure: XR - Chest 1 View X-Ray CPT Code: 02008 FULL RESULT: EXAM: CHEST RADIOGRAPHY EXAM DATE: 08/19/2018 02:14 PM. CLINICAL HISTORY: Dyspnea. COMPARISON: 04/14/2018. TECHNIQUE: 1 view. FINDINGS: Lungs/Pleura: Chronic interstitial lung disease. No focal alveolar infiltrate. Large lung volumes. Mediastinum: Within exam limitations, the cardiomediastinal contour is normal. Other: None. IMPRESSION: 1. COPD. Chronic interstitial fibrosis 2. No new findings RADIA
[2018-08-19 14:47] LABS: BASOPHILS # (AUTO) 0.1 10^3/uL (0.0-0.1); BASOPHILS % (AUTO) 0.7 %; EOSINOPHILS % (AUTO) 0.2 %; HGB - HEMOGLOBIN 12.2 g/dL (14.0-18.0); LYMPHOCYTES # (AUTO) 0.9 10^3/uL (1.5-3.5); LYMPHOCYTES % (AUTO) 7.6 %; MEAN CORPUSCULAR HEMOGLOBIN 26.9 pg (27.0-31.0); MEAN CORPUSCULAR HGB CONC 32.7 g/dL (32.0-36.0); MEAN CORPUSCULAR VOLUME 82.2 fL (80.0-94.0); MEAN PLATELET VOLUME 8.8 fL (7.4-11.4); MONOCYTES # (AUTO) 0.6 10^3/uL (0.0-1.0); MONOCYTES % (AUTO) 5.5 %; NEUTROPHILS # (AUTO) 9.9 10^3/uL (1.5-6.6); PLT - PLATELET COUNT 142 10^3/uL (130-450); RED BLOOD COUNT 4.52 10^6/uL (4.70-6.10); RED CELL DISTRIBUTION WIDTH 14.1 % (12.0-15.0); WHITE BLOOD COUNT 11.5 x10^3/uL (4.8-10.8)
[2018-08-19] MEDS ORDERED: cefTRIAXone 1 GM in SODIUM CHLORIDE 0.9% MINIBAG 100 ML IV STA (14:56)
[2018-08-19] MEDS ORDERED: predniSONE 20 MG TABLET PO STA (14:56)
[2018-08-19 14:57] LABS: ALBUMIN 3.5 g/dL (3.2-5.5); ALBUMIN/GLOBULIN RATIO 0.9 (1.0-2.2); BILIRUBIN,TOTAL 0.7 mg/dL (0.2-1.0); CALCIUM 9.3 mg/dL (8.5-10.3); CREATININE 1.1 mg/dL (0.6-1.2); TOTAL PROTEIN 7.3 g/dL (6.7-8.2)
[2018-08-19] MEDS ORDERED: SODIUM CHLORIDE FLUSH 0.9% 10 ML SYRINGE IVP PRN (15:58)
[2018-08-19] MEDS ORDERED: ACETAMINOPHEN 325 MG TABLET PO PRN (15:58)
[2018-08-19] MEDS ORDERED: HYDROcod/ACETAM 5/325 MG TABLET PO PRN (15:58)
[2018-08-19] MEDS ORDERED: ONDANSETRON ODT 4 MG TABLET TL PRN (15:58)
[2018-08-19] MEDS ORDERED: ONDANSETRON 4 MG/2 ML VIAL IVP PRN (15:58)
--- NOTE | 2018-08-19 16:33 | HISTORY & PHYSICAL EXAMINATION ---
Chief Complaint - Chief Complaint Chief Complaint: found unconscious at home in bed History of Present Illness - Admitted From Admitted From:: HOme/ER - History Obtained From Records Reviewed: [facility] History obtained from: Dr. Lagos Exam Limitations: patient memory - History of Present Illness HPI Comment/Other: He is an 82-year-old gentleman who has end-stage COPD. I first met him in April 2018 when he was admitted for acute exacerbation with pneumonia. His disease status and anatomy evaluation with a CAT scan of the chest warranted a long advance care planning conversation. Referral to palliative care. He is been seen by palliative care since May 05. He is on continuous oxygen plus trilogy therapy. Family and he note that he has had a fairly sharp decline in mobility and status since about December 2017. He just quit smoking in April 2018 and had been smoking 1 pack/day since the age of 19. His cough and phlegm have improved. He is DO NOT RESUSCITATE, selective treatment. He is still nichole ling to come to the hospital for reversible condition. He was last seen in his home July 26 by palliative care. He had been doing well, and stable at the new baseline functionality of his dyspnea on exertion. He went back to smoking 10 cigarettes a day. He sometimes does not take his oxygen with him. There is been no antecedent change in his illness. He has been stable. Today, he slept longer than usual and his let him sleep. When he finally had been sleeping so long that they got alarmed, went to go found him and he was unresponsive and altered. Paramedics were summoned. His O2 sats were in the 60s even though he was on his CPAP. He was administered DuoNeb with good relief. He felt like he was fine, coughing less, but had a runny nose. In the emergency room he was febrile to 38.8, blood pressure 158/99, and had very tight lung sounds rhonchi throughout. White cell count was mildly elevated 11.5. Chest x-ray had no acute changes. Dr. Wilson feels that the patient may be developing pneumonia or at least an early viral syndrome. His lung status is so tenuous that he is decompensated quickly. As such he will placed in acute care, IV antibiotics, steroids. Watch closely. History - Past Medical History Cardiovascular: reports: High cholesterol, Atrial fibrillation (Echocardiogram April 12, 2018 shows ejection fraction of 55-60%. Indeterminate diastolic function. Moderate right ventricular enlargement. Mild tricuspid regurgitation. RVSP at rest is 52 mmHg.) Respiratory: reports: COPD, Shortness of breath, Other (Interstitial lung disease) Neuro: reports: None Endocrine/Autoimmune: reports: Type 2 diabetes (From his inhaled steroids. He takes metformin for this.) GI: reports: GERD, Other (Gastritis) : reports: None HEENT: reports: Glaucoma, Other (Cataracts) Psych: reports: None Musculoskeletal: reports: Osteoarthritis Derm: reports: None MRSA Hx?: No - Past Surgical History General: reports: EGD, Cholecystectomy, Colonoscopy Ortho: reports: Shoulder arthroplasty HEENT: reports: Cataracts - Family & Social History Family History Comment/Other: Mom at age 38 of stroke. Dad at age 3093 of old age. No history of heart attack, stroke, diabetes or cancer. He has 8 brothers and sisters and one is from an [place]. All of his other brothers and sisters are alive. They do not have high blood pressure, cancer, stroke, diabetes or emphysema. All of his 4 children are completely healthy. Living arrangement: At home Living Situation: With spouse/s.o. Social History Notes: He was born in [facility]. [place] [facility] in [place]. He took a job here because it was just "too dark hot in [place]". He ended up buying a place [place], and his lived in the house since. He has been to his first for 57 years. 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 One child lives in [place], 2 in [place] and one in [place]. He started smoking at the age of 19 and still smokes about a pack a week. He is a nond ammy and has maybe 1 beer every 6 months. No history of recreational substance abuse. - Substance History Use: Uses substance without health or social issues: Tobacco Dependence: Experiences withdrawal or developed tolerances: NONE Tobacco Details: Cigarettes - POLST Patient has POLST: Yes POLST Status: DNR Meds/Allgy - Home Medications Home Medications: Ambulatory Orders Medication Instructions Recorded Confirmed Aspirin 81 mg PO DAILY 12/19/12 08/19/18 Atenolol [Tenormin] 50 mg PO DAILY 12/19/12 08/19/18 metFORMIN [Glucophage] 500 mg PO BID 10/14/14 08/19/18 Mirtazapine 15 mg PO QPM 04/12/18 08/19/18 Fluticasone/Vilanterol [Breo 1 puffs PO DAILY 05/05/18 08/19/18 Ellipta 200-25 Mcg INH] Ipratropium/Albuterol [Duoneb] 3 ml PO Q4H PRN 05/05/18 08/19/18 Lisinopril 10 mg PO DAILY 07/26/18 08/19/18 Pantoprazole [Protonix] 40 mg PO DAILY 08/19/18 08/19/18 - Allergies Allergies/Adverse Reactions: Allergies Allergy/AdvReac Type Severity Reaction Status Date / Time atorvastatin Allergy Intermediate Cramps Verified 08/19/18 13:54 Latex, Natural Rubber Allergy Intermediate blisters Verified 08/19/18 13:54 Sulfa (Sulfonamide Allergy Mild "sick Verified 08/19/18 13:54 Antibiotics) feeling" hydrocodone [Hydrocodone] AdvReac Mild "sick Verified 08/19/18 13:54 feeling" Review of Systems - Constitutional Constitutional: reports: Fatigue, Malaise. denies: Fever, Chills, Weakness, Poor appetite - Eyes Eyes: denies: Pain, Irritation, Amaurosis, Blurred vision - Ears, Nose & Throat Ears, Nose & Throat: reports: Hearing loss, Nasal obstruction, Nasal congestion. denies: Ear pain, Hearing aids, Tinnitus, Vertigo, Postnasal drainage, Dentures, Sore throat - Respiratory Respiratory: reports: Cough, Sputum production, Wheezing, SOB at rest, SOB with exertion - Gastrointestinal Gastrointestinal: denies: Abdominal pain, Abdominal distention, Constipation, Diarrhea, Change in bowel habits, Rectal bleeding, Bile emesis - Genitourinary Genitourinary: denies: Dysuria, Frequency, Urgency, Incontinence - Musculoskeletal Musculoskeletal: reports: Muscle pain, Back pain. denies: Muscle aches, Stiffness, Gout, Joint pain - Integumentary Integumentary: denies: Rash, Pruritis, Lesions - Neurological Neurological: reports: Memory problems. denies: General weakness, Focal weakness, Headache, Dizziness - Psychiatric Psychiatric: denies: Depression, Anxiety, Suicidal - Endocrine Endocrine: denies: Polyuria, Polydypsia - Hematologic/Lymphatic Hematologic/Lymphatic: denies: Anemia, Bruising, Petechiae Prior Level of Functionality: He has had a noticeable decline since December 2017 with decreased mobility because of shortness of breath. He rarely drives a car. Drove to the [facility]. Is still able to dress himself and feed himself as long as he moves slowly. He would like to think that he is able to get in the yard and matt around with a riding lawnmower or cut some shrubbery but has not been able to do that for close to a year. Again, and shortness of breath limits his mobility tremendously. No walker or cane. Exam - Vital Signs Reviewed Vital Signs: Yes Vital Signs: Vital Signs x48h Temp Pulse Resp BP Pulse Ox 08/19/18 15:03 86 22 143/54 H 95 08/19/18 13:46 38.8 C H 99 18 158/99 H 98 - Physical Exam General Appearance: positive: Mild distress (from sob while eating his dinner), Other (cachectic elderly disheveled male, flushed cheeks, remembers me but not my name from last time) Eyes Bilateral: positive: PERRL ENT: positive: Dry mucous membranes Neck: positive: No JVD. negative: Stiff neck, Carotid bruit Respiratory: positive: Chest non-tender, Wheezes, Rhonchi, Other (rib cage visible thru loss of muscle mass) Cardiovascular: positive: Regular rate & rhythm, Systolic murmur, Other (RV lift). negative: Gallop/S4, Friction rub Abdomen: positive: Non-tender, No organomegaly, Nml bowel sounds, No distention Skin: positive: Warm, Dry Extremities: positive: Full ROM, No pedal edema, Other (very thin from loss of muscle massa) Neurologic/Psychiatric: positive: Oriented x3, CN's nml (2-12), Motor nml Conclusion/Plan - Problem List (1) COPD exacerbation Conclusion/Plan: Presents as sudden exacerbation. While this gentleman has end-stage, severe COPD and he is on home oxygen, he appears to have plateaued to a stable status over the last few months. He is even gone to the [facility] to see his granddaughter in [place] at [place] time and drove himself there. He denies any antecedent cough, fever, chills, myalgias. Went to sleep last night like he always does, next thing he knows is an ambulance on the way to the hospital today. He denies sore throat, runny nose. Always has a daily productive cough. But the cough is minimally productive. He really feels nothing new is going on. With the mildly elevated white cell count, low-grade fever, suspect possible early onset of a viral syndrome tipping this very tenuously stable elderly gentleman. Plan: Expect 2 midnights because he is so frail IV antibiotics empirically Adjust on the basis of blood cultures if they become positive Steroids Nebulizers (2) Hyperglycemia due to type 2 diabetes mellitus Conclusion/Plan: He attributes his elevated glucose to the inhaled steroids he takes. He usually uses metformin at home. Plan: No metformin during his stay. Sliding scale insulin before meals. Qualifiers: Diabetes mellitus remote computer terminal operator insulin use: without remote computer terminal operator use Qualified Code(s): E11.65 - Type 2 diabetes mellitus with hyperglycemia (3) GERD (gastroesophageal reflux disease) Conclusion/Plan: PRN Protonix, as needed Tums Qualifiers: Esophagitis presence: without esophagitis Qualified Code(s): K21.9 - Gastro-esophageal reflux disease without esophagitis (4) Do not resuscitate status Conclusion/Plan: Advance care planning discussion done in April 2018. He has been getting palliative care at his home since then. He reiterates DO NOT RESUSCITATE status. DO NOT INTUBATE. - Lab Results Fish Bones: 08/19/18 14:29 08/19/18 14:29 - Diagnostic Imaging Results Diagnostic Imaging Results: positive: Final report reviewed Diagnostic Imaging Results Comments: CHEST RADIOGRAPHY EXAM DATE: 08/19/2018 02:14 PM. CLINICAL HISTORY: Dyspnea. COMPARISON: 04/14/2018. TECHNIQUE: 1 view. FINDINGS: Lungs/Pleura: Chronic interstitial lung disease. No focal alveolar infiltrate. Large lung volumes. Mediastinum: Within exam limitations, the cardiomediastinal contour is normal. Other: None. IMPRESSION: 1. COPD. Chronic interstitial fibrosis 2. No new findings - EKG Results EKG Interpreted Independently: No EKG Comparison: Unchanged from prior EKG EKG Findings: NSR. Anteroseptal changes of old PA. Peaked T waves. Core Measures - Anticipated LOS I expect patient to be DC'd or transferred within 96 hours.: Yes - DVT/VTE - Prophylaxis VTE/DVT Device ordered at admit?: Yes
[2018-08-19] MEDS: SODIUM CHLORIDE 0.9% 1,000 ML IV SCH (17:29)
[2018-08-19] MEDS ORDERED: CALCIUM CARBONATE CHEW 500 MG TABLET PO PRN (17:34)
[2018-08-19] MEDS ORDERED: PANTOPRAZOLE 40 MG TABLET PO PRN (17:34)
[2018-08-19] MEDS ORDERED: INSULIN REGULAR HUMAN 100 UNIT/1 ML 10 ML MDV SUBQ SCH ×2 (18:00→19:48)
[2018-08-19] MEDS: ALBUTEROL NEB 2.5 MG/3 ML INH PRN (18:11)
[2018-08-19] MEDS: SODIUM CHLORIDE FLUSH 0.9% 10 ML SYRINGE IVP SCH (18:53)
[2018-08-19] MEDS: MIRTAZAPINE 15 MG TABLET PO SCH (20:34)
[2018-08-19] MEDS: INSULIN ASPART 300 UNIT/3 ML PEN SUBQ SCH (21:58)
[2018-08-20] MEDS: SODIUM CHLORIDE 0.9% 1,000 ML IV SCH ×2 (03:21→14:02)
[2018-08-20] MEDS: SODIUM CHLORIDE FLUSH 0.9% 10 ML SYRINGE IVP SCH ×3 (05:22→17:29)
[2018-08-20] MEDS: ALBUTEROL NEB 2.5 MG/3 ML INH PRN ×3 (07:20→18:19)
[2018-08-20] MEDS: POLYETHYLENE GLYCOL 3350 17 GM PACKET PO SCH (09:00)
[2018-08-20] MEDS: cefTRIAXone 2 GM in SODIUM CHLORIDE 0.9% MINIBAG 100 ML IV SCH (09:01)
[2018-08-20] MEDS: INSULIN ASPART 300 UNIT/3 ML PEN SUBQ SCH ×4 (09:09→20:48)
--- NOTE | 2018-08-20 11:45 | PROVIDER PROGRESS NOTE ---
Subjective - Prog Note Date Prog Note Date: 08/20/18 Prog Note Time: 11:45 - Subjective Subjective: He was actually better yesterday. Today he is struggling to breathe more. I found him with his facemask on sleeping this morning and had to wake him up. He is groggy, struggling to breathe. More use of accessory muscles. This is at rest. He has not had a temperature. Respiratory rate goes up to 26. Normotensive. On 3-1/2 L now as opposed to 2-1/2 L yesterday. Current Medications - Current Medications Current Medications: Active Medications Acetaminophen (Tylenol) 650 mg PO Q4HR PRN PRN Reason: Pain 1 to 4 Hydrocodone Bitart/Acetaminophen ([place] 5/325) 1 tab PO Q4HR PRN PRN Reason: Pain 5 to 7 Albuterol () 2.5 mg INH RTQ4H PRN PRN Reason: Wheezing Last Admin: 08/20/18 11:01 Dose: 2.5 mg Calcium Carbonate/Glycine (Tums) 500 mg PO BID PRN PRN Reason: INDIGESTION Ceftriaxone Sodium 2 gm/ (Sodium Chloride) 100 mls @ 200 mls/hr IV DAILY [facility] Last Infusion: 08/20/18 09:31 Dose: Infused Sodium Chloride (Normal Saline 0.9%) 1,000 mls @ 100 mls/hr IV .Q10H [facility] Last Infusion: 08/20/18 09:31 Dose: 100 mls/hr Insulin Aspart (Novolog) 1 - 9 unit SUBQ 0800,1200,1700,2100 [facility]; Protocol Last Admin: 08/20/18 09:09 Dose: 1 unit Mirtazapine (Remeron) 15 mg PO QPM [facility] Last Admin: 08/19/18 20:34 Dose: 15 mg Ondansetron HCl (Zofran Inj) 4 mg IVP Q6HR PRN PRN Reason: Nausea / Vomiting Ondansetron HCl (Zofran Odt) 4 mg TL Q6HR PRN PRN Reason: Nausea / Vomiting Pantoprazole Sodium (Protonix) 40 mg PO DAILY PRN PRN Reason: INDIGESTION Polyethylene Glycol (Miralax) 17 gm PO DAILY [facility] Last Admin: 08/20/18 09:00 Dose: 17 gm Sodium Chloride (Normal Saline Flush 0.9%) 10 ml IVP PRN PRN PRN Reason: NEEDED PER PROVIDER ORDERS Sodium Chloride (Normal Saline Flush 0.9%) 10 ml IVP 0100,0900,1700 MARK Last Admin: 08/20/18 09:01 Dose: Not Given Aspirin 81 mg PO DAILY 12/19/12 Atenolol [Tenormin] 50 mg PO DAILY 12/19/12 metFORMIN [Glucophage] 500 mg PO BID 10/14/14 Mirtazapine 15 mg PO QPM 04/12/18 Fluticasone/Vilanterol [Breo Ellipta 200-25 Mcg INH] 1 puffs PO DAILY 05/05/18 Ipratropium/Albuterol [Duoneb] 3 ml PO Q4H PRN 05/05/18 Lisinopril 10 mg PO DAILY 07/26/18 Pantoprazole [Protonix] 40 mg PO DAILY 08/19/18 Objective - Vital Signs/Intake & Output Reviewed Vital Signs: Yes Vital Signs: Vital Signs x48h Temp Pulse Pulse Resp BP Pulse Ox 08/20/18 11:02 72 18 08/20/18 07:54 36.3 C L 64 26 H 129/50 L 100 08/20/18 07:23 74 16 Intake & Output: Intake & Output 08/17/18 08/18/18 08/19/18 08/20/18 23:59 23:59 23:59 23:59 Intake Total 556 2593.334 Balance 556 2593.334 - Objective General Appearance: positive: Alert, Other (Gaunt, cachectic elderly man, in acute distress from respiratory status. This is at rest in the middle of his sleep.) Eyes Bilateral: positive: PERRL, EOMI Neck: positive: No JVD. negative: Stiff neck, Carotid bruit Respiratory: positive: Chest non-tender, Wheezes, Rhonchi, Other (Use of a ccessory muscles for chest wall and abdomen). negative: Rales Cardiovascular: positive: Regular rate & rhythm, Tachycardia (Occasional tachycardia). negative: JVD present, Gallop/S4, Friction rub Abdomen: positive: Non-tender, No organomegaly, Nml bowel sounds, No distention Skin: positive: Warm, Dry Extremities: positive: Non-tender, No pedal edema, Other (He is a tremendous loss of muscle mass. Very gaunt.) Neurologic/Psychiatric: positive: Weakness. negative: Oriented x3, CN's nml (2- 12), Motor nml - Lab Results Fish Bones: 08/19/18 14:29 08/19/18 14:29 Other Labs: Lab Results x24hrs 08/20/18 08/20/18 08/19/18 Range/Units 11:20 07:46 21:12 WBC (4.8-10.8) x10^3/uL RBC (4.70-6.10) 10^6/uL Hgb (14.0-18.0) g/dL Hct (42.0-52.0) % MCV (80.0-94.0) fL MCH (27.0-31.0) pg MCHC (32.0-36.0) g/dL RDW (12.0-15.0) % Plt Count (130-450) 10^3/uL MPV (7.4-11.4) fL Neut # (Auto) (1.5-6.6) 10^3/uL Lymph # (Auto) (1.5-3.5) 10^3/uL Rooks # (Auto) (0.0-1.0) 10^3/uL Eos # (Auto) (0.0-0.7) 10^3/uL Baso # (Auto) (0.0-0.1) 10^3/uL Absolute Nucleated RBC x10^3/uL Nucleated RBC % /100WBC Sodium (135-145) mmol/L Potassium (3.5-5.0) mmol/L Chloride (101-111) mmol/L Carbon Dioxide (21-32) mmol/L Anion Gap (6-13) BUN (6-20) mg/dL Creatinine (0.6-1.2) mg/dL Estimated GFR (MDRD) (>89) Glucose (70-100) mg/dL POC Whole Bld Glucose 168 H 144 H 287 H (70 - 100) mg/dL Lactic Acid (0.5-2.2) mmol/L Calcium (8.5-10.3) mg/dL Total Bilirubin (0.2-1.0) mg/dL AST (10-42) IU/L ALT (10-60) IU/L Alkaline Phosphatase (42-121) IU/L Troponin I (<0.49) ng/mL Total Protein (6.7-8.2) g/dL Albumin (3.2-5.5) g/dL Globulin (2.1-4.2) g/dL Albumin/Globulin Ratio (1.0-2.2) Lipase (22-51) U/L Influenza A (Rapid) (Negative) Influenza B (Rapid) (Negative) 08/19/18 08/19/18 08/19/18 Range/Units 20:54 17:54 14:29 WBC (4.8-10.8) x10^3/uL RBC (4.70-6.10) 10^6/uL Hgb (14.0-18.0) g/dL Hct (42.0-52.0) % MCV (80.0-94.0) fL MCH (27.0-31.0) pg MCHC (32.0-36.0) g/dL RDW (12.0-15.0) % Plt Count (130-450) 10^3/uL MPV (7.4-11.4) fL Neut # (Auto) (1.5-6.6) 10^3/uL Lymph # (Auto) (1.5-3.5) 10^3/uL Rooks # (Auto) (0.0-1.0) 10^3/uL Eos # (Auto) (0.0-0.7) 10^3/uL Baso # (Auto) (0.0-0.1) 10^3/uL Absolute Nucleated RBC x10^3/uL Nucleated RBC % /100WBC Sodium (135-145) mmol/L Potassium (3.5-5.0) mmol/L Chloride (101-111) mmol/L Carbon Dioxide (21-32) mmol/L Anion Gap (6-13) BUN (6-20) mg/dL Creatinine (0.6-1.2) mg/dL Estimated GFR (MDRD) (>89) Glucose (70-100) mg/dL POC Whole Bld Glucose 329 H 187 H (70 - 100) mg/dL Lactic Acid 0.8 (0.5-2.2) mmol/L Calcium (8.5-10.3) mg/dL Total Bilirubin (0.2-1.0) mg/dL AST (10-42) IU/L ALT (10-60) IU/L Alkaline Phosphatase (42-121) IU/L Troponin I (<0.49) ng/mL Total Protein (6.7-8.2) g/dL Albumin (3.2-5.5) g/dL Globulin (2.1-4.2) g/dL Albumin/Globulin Ratio (1.0-2.2) Lipase (22-51) U/L Influenza A (Rapid) (Negative) Influenza B (Rapid) (Negative) 08/19/18 08/19/18 08/19/18 Range/Units 14:29 14:29 14:29 WBC 11.5 H (4.8-10.8) x10^3/uL RBC 4.52 L (4.70-6.10) 10^6/uL Hgb 12.2 L (14.0-18.0) g/dL Hct 37.2 L (42.0-52.0) % MCV 82.2 (80.0-94.0) fL MCH 26.9 L (27.0-31.0) pg MCHC 32.7 (32.0-36.0) g/dL RDW 14.1 (12.0-15.0) % Plt Count 142 (130-450) 10^3/uL MPV 8.8 (7.4-11.4) fL Neut # (Auto) 9.9 H (1.5-6.6) 10^3/uL Lymph # (Auto) 0.9 L (1.5-3.5) 10^3/uL Rooks # (Auto) 0.6 (0.0-1.0) 10^3/uL Eos # (Auto) 0.0 (0.0-0.7) 10^3/uL Baso # (Auto) 0.1 (0.0-0.1) 10^3/uL Absolute Nucleated RBC 0.00 x10^3/uL Nucleated RBC % 0.0 /100WBC Sodium 136 (135-145) mmol/L Potassium 4.4 (3.5-5.0) mmol/L Chloride 95 L (101-111) mmol/L Carbon Dioxide 33 H (21-32) mmol/L Anion Gap 8.0 (6-13) BUN 24 H (6-20) mg/dL Creatinine 1.1 (0.6-1.2) mg/dL Estimated GFR (MDRD) 64 L (>89) Glucose 107 H (70-100) mg/dL POC Whole Bld Glucose (70 - 100) mg/dL Lactic Acid (0.5-2.2) mmol/L Calcium 9.3 (8.5-10.3) mg/dL Total Bilirubin 0.7 (0.2-1.0) mg/dL AST 12 (10-42) IU/L ALT 10 (10-60) IU/L Alkaline Phosphatase 60 (42-121) IU/L Troponin I < 0.04 (<0.49) ng/mL Total Protein 7.3 (6.7-8.2) g/dL Albumin 3.5 (3.2-5.5) g/dL Globulin 3.8 (2.1-4.2) g/dL Albumin/Globulin Ratio 0.9 L (1.0-2.2) Lipase 23 (22-51) U/L Influenza A (Rapid) (Negative) Influenza B (Rapid) (Negative) 08/19/18 Range/Units 14:14 WBC (4.8-10.8) x10^3/uL RBC (4.70-6.10) 10^6/uL Hgb (14.0-18.0) g/dL Hct (42.0-52.0) % MCV (80.0-94.0) fL MCH (27.0-31.0) pg MCHC (32.0-36.0) g/dL RDW (12.0-15.0) % Plt Count (130-450) 10^3/uL MPV (7.4-11.4) fL Neut # (Auto) (1.5-6.6) 10^3/uL Lymph # (Auto) (1.5-3.5) 10^3/uL Rooks # (Auto) (0.0-1.0) 10^3/uL Eos # (Auto) (0.0-0.7) 10^3/uL Baso # (Auto) (0.0-0.1) 10^3/uL Absolute Nucleated RBC x10^3/uL Nucleated RBC % /100WBC Sodium (135-145) mmol/L Potassium (3.5-5.0) mmol/L Chloride (101-111) mmol/L Carbon Dioxide (21-32) mmol/L Anion Gap (6-13) BUN (6-20) mg/dL Creatinine (0.6-1.2) mg/dL Estimated GFR (MDRD) (>89) Glucose (70-100) mg/dL POC Whole Bld Glucose (70 - 100) mg/dL Lactic Acid (0.5-2.2) mmol/L Calcium (8.5-10.3) mg/dL Total Bilirubin (0.2-1.0) mg/dL AST (10-42) IU/L ALT (10-60) IU/L Alkaline Phosphatase (42-121) IU/L Troponin I (<0.49) ng/mL Total Protein (6.7-8.2) g/dL Albumin (3.2-5.5) g/dL Globulin (2.1-4.2) g/dL Albumin/Globulin Ratio (1.0-2.2) Lipase (22-51) U/L Influenza A (Rapid) Negative (Negative) Influenza B (Rapid) Negative (Negative) ABX Reporting Has patient been on IV antibiotics over the past 48 hours?: Yes Assessment/Plan - Problem List (1) COPD exacerbation Impression: Presents as sudden exacerbation. 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 He is even gone to the [facility] to see his granddaughter in [place] at [place] time and drove himself there. He denies any antecedent cough, fever, chills, myalgias. Went to sleep the night before admission like he always does, next thing he knows is an ambulance on the way to the hospital on day of admission. He denies sore throat, runny nose. Always has a daily productive cough. But the cough is minimally productive. He really feels nothing new is going on. With the mildly elevated white cell count, low-grade fever, suspect possible early onset of a viral syndrome tipping this very tenuously stable elderly gentleman. Plan: Expect minimum of 2 midnights because he is so frail IV antibiotics empirically, Day #2 today Adjust on the basis of blood cultures if they become positive. They have been received by not processed yet Steroids Nebulizers (2) Hyperglycemia due to type 2 diabetes mellitus Conclusion/Plan: He attributes his elevated glucose to the inhaled steroids he takes. He usually uses metformin at home. Plan: No metformin during his stay. Sliding scale insulin before meals. Qualifiers: Diabetes mellitus detention insulin use: without detention use Qualified Code(s): E11.65 - Type 2 diabetes mellitus with hyperglycemia (3) GERD (gastroesophageal reflux disease) Conclusion/Plan: PRN Protonix, as needed Tums Qualifiers: Esophagitis presence: without esophagitis Qualified Code(s): K21.9 - Gastro-esophageal reflux disease without esophagitis (4) Do not resuscitate status Conclusion/Plan: Advance care planning discussion done in April 2018. He has been getting palliative care at his home since then. He reiterates DO NOT RESUSCITATE status. DO NOT INTUBATE. has been talking to licensed clinical social worker. She is requesting a day care home provider. We are in the midst of investigating whether home health RN and aide can go to the house or does not need to be private hire. He has definitely deteriorated to the point he is homebound again. He certainly cannot drive anymore. Requires an inordinate amount of effort to just sit up at sitting the side of the bed much less to get up and get dressed or take a bath.
[2018-08-20] MEDS ORDERED: MIN OIL/DIMETHICON/COCONUT OIL 92 GM TUBE TOP PRN (14:24)
[2018-08-20] MEDS: MIRTAZAPINE 15 MG TABLET PO SCH (20:46)
[2018-08-21] MEDS: SODIUM CHLORIDE 0.9% 1,000 ML IV SCH (00:18)
[2018-08-21] MEDS: SODIUM CHLORIDE FLUSH 0.9% 10 ML SYRINGE IVP SCH ×2 (00:19→08:32)
[2018-08-21] MEDS: ALBUTEROL NEB 2.5 MG/3 ML INH PRN (02:00)
[2018-08-21] MEDS ORDERED: diphenhydrAMINE INJ 50 MG/ML VIAL ONE (04:31)
[2018-08-21 06:21] LABS: BASOPHILS % (AUTO) 0.1 %; EOSINOPHILS % (AUTO) 0.1 %; HGB - HEMOGLOBIN 10.4 g/dL (14.0-18.0); LYMPHOCYTES # (AUTO) 0.7 10^3/uL (1.5-3.5); LYMPHOCYTES % (AUTO) 8.3 %; MEAN CORPUSCULAR HEMOGLOBIN 27.1 pg (27.0-31.0); MEAN CORPUSCULAR HGB CONC 32.3 g/dL (32.0-36.0); MEAN CORPUSCULAR VOLUME 83.8 fL (80.0-94.0); MEAN PLATELET VOLUME 9.3 fL (7.4-11.4); MONOCYTES # (AUTO) 0.7 10^3/uL (0.0-1.0); NEUTROPHILS # (AUTO) 6.8 10^3/uL (1.5-6.6); NEUTROPHILS % (AUTO) 83.5 %; PLT - PLATELET COUNT 125 10^3/uL (130-450); RED BLOOD COUNT 3.86 10^6/uL (4.70-6.10); WHITE BLOOD COUNT 8.2 x10^3/uL (4.8-10.8)
[2018-08-21 06:29] LABS: CALCIUM 8.6 mg/dL (8.5-10.3); CREATININE 1.1 mg/dL (0.6-1.2)
[2018-08-21 06:54] LABS: PLATELET ESTIMATE, MANUAL DECREASED (<130,000) (NORMAL); RBC MORPHOLOGY (MULTIPLE) NORMAL APPEARANCE (NORMAL)
[2018-08-21] MEDS: BUDESONIDE 0.5 MG/2 ML NEB INH SCH ×2 (07:38→09:20)
[2018-08-21] MEDS: FORMOTEROL FUMARATE NEB 20 MCG/2 ML INH SCH ×2 (07:38→09:20)
[2018-08-21 08:26] VITALS: BP 147/64
[2018-08-21] MEDS: cefTRIAXone 2 GM in SODIUM CHLORIDE 0.9% MINIBAG 100 ML IV SCH (08:31)
[2018-08-21] MEDS: POLYETHYLENE GLYCOL 3350 17 GM PACKET PO SCH (08:31)
[2018-08-21] MEDS: INSULIN ASPART 300 UNIT/3 ML PEN SUBQ SCH (08:32)
--- NOTE | 2018-08-21 10:27 | Discharge Plan ---
Discharge Plan Disposition: Home, Self Care Condition: Good Prescriptions: Azithromycin 250 mg PO DAILY #10 tablet Diet: Regular Activity Restrictions: Activity as Tolerated Shower Restrictions: No Driving Restrictions: Yes (no driving) Assistance Devices: Wheelchair, Walker Instruction Topics: Azithromycin tablets, COPD Dc, Breathing Controlled Dc Additional Instructions or Follow Up instructions: You were admitted to the hospital because you had severe exacerbation of your emphysema. We always look for colds, viruses, or pneumonia that may people do that. While you were here you did very well with our antibiotics and intravenous steroids. You never developed a cold or an pneumonia. We think you are at baseline and ready to go home. Remember: 1. Always wear your oxygen even when you go have coffee or walk on the beach (if your oxygen level gets too low and you are too far away from help you may c ollapse or from low oxygen) 2. Make sure you take your medicines, including your nebulizers, on a regular basis 3. I will send you home on a single dose of azithromycin on a daily basis for 10 days. Sometimes that helps reduce inflammation and your risk of coming back to the hospital Please see your primary care provider, Dr. Biswas, in follow-up in the next 1-2 weeks. Or, Lindsey Saucedo, palliative care, can see you at home. No Smoking: If you smoke, Please STOP! Call for help. Follow-up with: Tom Biswas MD [Primary Care Provider] -
--- NOTE | 2018-08-23 16:01 | DISCHARGE SUMMARY ---
Physician: Corinne Ingram MD DATE OF ADMISSION: 08/19/2018 DATE OF DISCHARGE: 08/21/2018 DISCHARGE DIAGNOSES 1. Chronic obstructive pulmonary disease, end-stage, with acute exacerbation. 2. Type 2 diabetes mellitus, uncontrolled, with hyperglycemia. 3. Gastroesophageal reflux disease. 4. Failure to thrive. DISCHARGE MEDICATIONS 1. Aspirin 81 mg a day. 2. Atenolol 50 mg a day. 3. Breo Ellipta 200/25 mcg inhalation daily. 4. DuoNeb via nebulizer every 4 hours as needed. 5. Lisinopril 10 mg daily. 6. Metformin 500 mg p.o. b.i.d. 7. Mirtazapine 15 mg p.o. q.p.m. 8. Protonix 40 mg p.o. daily. 9. Ranitidine 150 t.i.d. 10. Ventolin HFA inhaler 1-2 puffs via inhalation 4 times a day as needed. 11. Azithromycin 250 mg tablet #10. PRINCIPAL PROCEDURE: Chest x-ray with chronic COPD, chronic interstitial fibrosis. No new infiltrate or findings. Two blood cultures negative after 2 days. HOSPITAL COURSE: Patient is a very pleasant, 83-year-old, elderly gentleman with severe cachexia, really diminished muscle mass, who has end-stage COPD. He is on home oxygen. With his last admission, he was discharged to follow up with Palliative Care. He has been working closely with Lindsey Martinez, and has been followed quite nicely. The chart demonstrates a downhill trend with regard to his endurance, mobility, activities of daily living, and needing more and more help at home. Nevertheless, he maintains, for himself, a good quality of life. He was even able to spend time with his family over the holidays. He is a DO NOT RESUSCITATE with selective treatment. There has been no change in his status. While he has end-stage disease, there has been no notorious or sudden deterioration. He had no fever, no chills. No one around him was sick. On the day of admission, he seemed to want to sleep longer than usual, so his let him sleep. When he finally was asleep for so long, they became alarmed enough and they went to go wake him up, and he was unresponsive and altered. Paramedics were summoned, and his O2 saturations were in the 60s, even though he was on his CPAP and oxygen. He was administered DuoNeb with good relief. He felt he was fine, had a slight runny nose and, in fact, that he was coughing less than usual. He was brought to the emergency room, and he was febrile to 38.8, blood pressure 158/99, and with very tight lung sounds with rhonchi throughout. White cell count was mildly elevated at 11.5. Chest x-ray had no infiltrate. He was not unusually dehydrated. Flu screen was negative. The emergency room physician felt that the patient may be developing an early pneumonia or at least an early viral syndrome, destabilizing a very tenuous stability of COPD. He was placed in acute care with IV antibiotics and steroids, and watched closely. Over the next 2 midnights, the gentleman was stable. While he did sleep late in the morning, and I would find myself having to wake him up at 10 in the morning, he was otherwise fine. His vitals indicated a stable oxygen requirement. He is 85% on room air and requires 4 liters of nasal cannula to be 91% to 90%. Heart rate was in the 70s and 80s, blood pressure was in the 130s to 150s systolic, and he did not spike any further temperatures. He seemed to respond to the empiric treatment with antibiotics and steroids. Creatinine remained stable at 1.1. During his stay, his diabetes was a little uncontrolled, in that at times it was 329 because of steroids. Troponins were less than 0.04. He is chronically anemic, and hemoglobin went between 10 and 12. White cell count was initially elevated at 11.5 and came down to 8.2. Blood cultures are negative after 2 days. He was independently eating and did not need an assist. He was eating anywhere from 25% to 100% of his food, depending on what went on his plate. PHYSICAL EXAMINATION GENERAL: His exam remained completely stable. RESPIRATORY: He is cachectic, occasionally his accessory muscles are used with activity when he tries to move and has increased respiratory effort. Coarse rhonchi, sometimes no breath sounds from how tight he was to nancy wheezing. Cough was stable, was productive of a clear phlegm that did not change during his stay. CARDIOVASCULAR: He had a regular rate and rhythm with a right ventricular lift palpable. ABDOMEN: Soft, scaphoid, nontender, without organomegaly. As such, after 2 midnights, the patient was felt stable to return to home. There is no clear indication of why he destabilized. He was sent home to stay on the same medications. The only thing I added was azithromycin to see if we could prevent a readmission. No medications were changed. His explained to me that he gets very concerned because he likes to go have breakfast with the boys at [facility], and also likes to walk on the beach. Both of these activities are without his home O2. I told him that he really needs to use his oxygen 28/02. Risk of COPD exacerbation or hypoxia with is certainly possible in this frail, elderly gentleman. He is asked to follow up with Palliative Care. I have asked his and him to consider transitioning to hospice. Greater than 30 minutes was spent coordinating discharge. TD: 08/23/2018 12:51 MARTELL
== END 2018-08-21 11:15 | disposition home or self-care (01) | DRG 191 ==
LOC: EDUNIT# → ED 13:46 → MS2 15:58
PROVIDERS: ADMIT Specialist; ATTEND Specialist
DX: J44.1 Chronic obstructive pulmonary disease with (acute) exacerbation (principal); R64 Cachexia; J84.10 Pulmonary fibrosis, unspecified; I48.91 Unspecified atrial fibrillation; E78.00 Pure hypercholesterolemia, unspecified; F17.200 Nicotine dependence, unspecified, uncomplicated; R09.02 Hypoxemia; I07.1 Rheumatic tricuspid insufficiency; I51.7 Cardiomegaly; E11.65 Type 2 diabetes mellitus with hyperglycemia; K21.9 Gastro-esophageal reflux disease without esophagitis; H40.9 Unspecified glaucoma; M19.90 Unspecified osteoarthritis, unspecified site; Z90.49 Acquired absence of other specified parts of digestive tract; Z66 Do not resuscitate; Z79.82 Long term (current) use of aspirin; Z91.040 Latex allergy status; R62.7 Adult failure to thrive; Z68.21 Body mass index [BMI] 21.0-21.9, adult; T38.0X5A Adverse effect of glucocorticoids and synthetic analogues, initial encounter; D64.9 Anemia, unspecified; Z99.81 Dependence on supplemental oxygen
CPT/HCPCS: 36415; 71045; 80048; 80053; 83605; 83690; 84484; 85025; 87040; 87275; 87276; 93005; 94640; 96365; 99284; 99285

== ENCOUNTER 2018-08-21 18:52 | Outpatient (CLI) | payer MEDICARE, OTHER | END 2018-08-21 18:53 | disposition critical access hospital (66) | LOC: EMS 18:52 | PROVIDERS: ATTEND Surgery | DX: R06.02 Shortness of breath (principal) | CPT/HCPCS: A0425; A0427 ==

== ENCOUNTER 2018-08-21 19:42 | Emergency (ER) | payer MEDICARE, OTHER ==
[2018-08-21 23:29] VITALS: BP 130/55
--- NOTE | 2018-08-21 23:53 | ED Physician Documentation ---
PD HPI DYSPNEA - Stated complaint Stated Complaint: SOA - Chief complaint Chief Complaint: Resp - History obtained from History obtained from: Patient - History of Present Illness Timing - onset: Today Timing - onset during: Sleep Timing - details: Abrupt onset Pain level now: 0 Improved by: O2, Rest Worsened by: Exertion Associated symptoms: Cough, Wheezing. No: Fever, Chest pain / discomfort Similar symptoms before: Diagnosis (COPD) Recently seen: Admitted - Additional information Additional information: discharged from [facility] earlier today. he woke from nap at home this evening and was dyspneic well beyond his baseline and thus called 911. given duoneb en route with dramatic improvement, feels he is back to baseline on my HPI PD PAST MEDICAL HISTORY - Past Medical History Cardiovascular: High cholesterol, Atrial fibrillation Respiratory: COPD, Shortness of breath, Other Neuro: None Endocrine/Autoimmune: Type 2 diabetes GI: GERD, Other : None HEENT: Glaucoma, Other Psych: None Musculoskeletal: Osteoarthritis Derm: None - Past Surgical History Past Surgical History: Yes General: EGD, Cholecystectomy, Colonoscopy Ortho: Shoulder arthroplasty HEENT: Cataracts - Present Medications Home Medications: Ambulatory Orders Medication Instructions Recorded Confirmed Aspirin 81 mg PO DAILY 12/19/12 08/21/18 Atenolol [Tenormin] 50 mg PO DAILY 12/19/12 08/21/18 metFORMIN [Glucophage] 500 mg PO BID 10/14/14 08/21/18 Mirtazapine 15 mg PO QPM 04/12/18 08/21/18 Fluticasone/Vilanterol [Breo 1 puffs PO DAILY 05/05/18 08/21/18 Ellipta 200-25 Mcg INH] Ipratropium/Albuterol [Duoneb] 3 ml PO Q4H PRN 05/05/18 08/21/18 Lisinopril 10 mg PO DAILY 07/26/18 08/21/18 Pantoprazole [Protonix] 40 mg PO DAILY 08/19/18 08/21/18 Azithromycin 250 mg PO DAILY #10 tablet 08/21/18 08/21/18 raNITIdine [Zantac] 1 tab PO TID 08/21/18 08/21/18 Albuterol Sulf [Ventolin Hfa 1 - 2 puffs INH Q4HR PRN #1 inhaler 08/22/18 Inhaler] - Allergies Allergies/Adverse Reactions: Allergies Allergy/AdvReac Type Severity Reaction Status Date / Time atorvastatin Allergy Intermediate Cramps Verified 08/21/18 19:13 Latex, Natural Rubber Allergy Intermediate blisters Verified 08/21/18 19:13 Sulfa (Sulfonamide Allergy Mild "sick Verified 08/21/18 19:13 Antibiotics) feeling" hydrocodone [Hydrocodone] AdvReac Mild "sick Verified 08/21/18 19:13 feeling" - Social History Does the pt smoke?: Yes Smoking Status: Current every day smoker Does the pt drink ETOH?: No Does the pt have substance abuse?: No - Immunizations Immunizations are current?: Yes - POLST Patient has POLST: Yes POLST Status: DNR PD ED PE NORMAL - Vitals Vital signs reviewed: Yes - General General: Alert and oriented X 3, No acute distress, Well developed/nourished - HEENT HEENT: Moist mucous membranes - Neck Neck: Supple, no meningeal sign - Cardiac Cardiac: RRR, No murmur - Respiratory Respiratory: No respiratory distress, Clear bilaterally (mildly diminished bilaterally) - Abdomen Abdomen: Soft, Non tender - Derm Derm: Normal color, Warm and dry Results - Vitals Vitals: Oxygen O2 Source [With Activity] Nasal cannula O2 Source [Without Activity] Nasal cannula O2 Source Nasal cannula Oxygen Flow Rate 4 PD MEDICAL DECISION MAKING - ED course Complexity details: reviewed old records, re-evaluated patient, considered differential, d/w patient ED course: given decadron IV and observed in ED. He remained in no respiratory distress and at his baseline respiratory status (per patient). pulse ox 88-93 % on 2 liters (again, he indicates to me that this is his baseline pulse ox) Departure - Departure Disposition: 01 Home, Self Care Clinical Impression: Moderate COPD (chronic obstructive pulmonary disease) Condition: Good Instructions: ED COPD Flare Follow-Up: Tom Biswas MD [Primary Care Provider] - Prescriptions: Albuterol Sulf [Ventolin Hfa Inhaler] 1 - 2 puffs INH Q4HR PRN #1 inhaler PRN Reason: Shortness Of Air/Wheezing Discharge Date/Time: 08/22/18 01:50
[2018-08-22] MEDS ORDERED: DEXAMETHASONE 10 MG/ML VIAL IVP STA (00:03)
== END 2018-08-22 01:50 | disposition home or self-care (01) ==
LOC: ED 19:42
DX: J44.9 Chronic obstructive pulmonary disease, unspecified (principal); E11.9 Type 2 diabetes mellitus without complications; Z79.84 Long term (current) use of oral hypoglycemic drugs; F17.200 Nicotine dependence, unspecified, uncomplicated
CPT/HCPCS: 99283

== ENCOUNTER 2018-08-25 15:29 | Outpatient (CLI) | payer MEDICARE, OTHER ==
--- NOTE | 2018-08-25 16:07 | CONSULTATION NOTE ---
Palliative Care Follow Up - Referral Referring Provider: Dr Biswas Time of Visit: 08/25/2018. 13:45 - 14:45 Referral setting: Home (Seen in home setting due to taxing and considerable effort required to leave the home due to significant SOA on 24-hour oxygen and trilogy respirator, secondary to end-stage COPD and interstitial pulmonary disease.) Referral Reason: SOA exacerbation / Pal Care - Information Sources Records reviewed: Previous records reviewed History/Review of Systems obtained from: Patient, Family Exam limitations: No limitations - History of Present Illness Update Brief HPI Update: 83-year-old gentleman with severe end stage COPD and interstitial pulmonary disease followed by Palliative Care since April. He was hospitalized 08/19/18-08/21/18 when he was found unresponsive at home with O2 sats in the 60s. He was treated in Acute Care with IV antibiotics, steroids, and Duonebs with good relief. He was discharged home, became dyspneic later that same day and went back to the ED. He was treated with Duonebs, restabilized, and was discharged home again (08/21/18) . Medical History: COPD for more than 10 years; HTN; chronic atrial fibrillation; moderate R ventricular enlargement with EF 55-60%; glaucoma and cataracts; cholecystectomy; osteoarthritis with shoulder arthroplasty; DM II controlled, not on insulin; steroid induced hyperglycemia; h/o gastritis; tobacco use disorder but has quit smoking during hospitalization Patient was discharged from hospital on azithromycin for 10 days with the hope of preventing a readmission. Hospitalist notes no clear indication of why he destabilized. Patient had a post-hospital visit with Dr Biswas yesterday who made some changes to his respiratory medications. He is also referring the patient to Home Health Nursing. Patient reports today that he feels he is doing fine. does not agree but is subtle about this. Patient is continuing to smoke, about 10 cigarettes a day. As we talk about it, he repeats a few times that he's knows he needs to quit, he's working up to quitting, and he is "going to quit soon." He has been given nicotine patches in the past, but they "didn't do a darn thing." His PCP gave him nicotine gum in April and he hasn't used that yet, but may start using it. He is using his nebulizer, but not necessarily 3 times per day. He reports feeling fine and that he does drive. His makes sure I know that he is NOT driving currently, and hasn't been since his hospitalization. Social History - Living Situation Living arrangement: At home Living Situation: With spouse/s.o. Support System: Lives with of 57 years in their [facility] that they've owned since 1976. They moved here from [place]. They have 4 adult children: 2 in [place], 2 in [place] and one in [place], [place]. Medications/Allergies - Medications Home Medications: Ambulatory Orders Medication Instructions Recorded Confirmed Aspirin 81 mg PO DAILY 12/19/12 08/21/18 Atenolol [Tenormin] 50 mg PO DAILY 12/19/12 08/21/18 metFORMIN [Glucophage] 500 mg PO BID 10/14/14 08/21/18 Mirtazapine 15 mg PO QPM 04/12/18 08/21/18 Fluticasone/Vilanterol [Breo 1 puffs PO DAILY 05/05/18 08/21/18 Ellipta 200-25 Mcg INH] Ipratropium/Albuterol [Duoneb] 3 ml PO Q4H PRN 05/05/18 08/21/18 Lisinopril 10 mg PO DAILY 07/26/18 08/21/18 Azithromycin 250 mg PO DAILY #10 tablet 08/21/18 08/21/18 raNITIdine [Zantac] 1 tab PO TID 08/21/18 08/21/18 Albuterol Sulf [Ventolin Hfa 1 - 2 puffs INH Q4HR PRN #1 inhaler 08/22/18 Inhaler] - Allergies Allergies/Adverse Reactions: Allergies Allergy/AdvReac Type Severity Reaction Status Date / Time atorvastatin Allergy Intermediate Cramps Verified 08/21/18 19:13 Latex, Natural Rubber Allergy Intermediate blisters Verified 08/21/18 19:13 Sulfa (Sulfonamide Allergy Mild "sick Verified 08/21/18 19:13 Antibiotics) feeling" hydrocodone [Hydrocodone] AdvReac Mild "sick Verified 08/21/18 19:13 feeling" Review of Systems - Constitutional Constitutional: reports: Weakness, Weight stable (155.7 (70.76kg) 08/21/18 at ED. 146.5 (66.6kg) during hospitalization. 152 lbs 07/26/18. 152 lbs 05/31/18. 147.7 05/17/18. 142 lbs 04/27/18. His appetite decreases when he smokes.) - Ears, Nose & Throat Ears, Nose & Throat: reports: Hearing loss - Cardiovascular Cardiovascular: denies: Chest pain - Respiratory Respiratory: reports: Cough, SOB with exertion. denies: SOB at rest - Gastrointestinal Gastrointestinal: denies: Constipation - Genitourinary Genitourinary: denies: Incontinence - Musculoskeletal Musculoskeletal: reports: Limited range of motion. denies: Assistive devices, Transfer issues - Endocrine Endocrine: reports: Diabetes type 2 - Other Findings Other Findings: Limited ROS Physical Exam - Vital Signs Temperature: 96.7 F Pulse Rate: 57 O2 Saturation: 95 Blood Pressure: 130/64 - Physical Exam General Appearance: positive: No acute distress, Alert, Cachetic Eyes Bilateral: positive: No lid inflammation, Conjunctivae nml, No scleral icterus Neck: positive: Trachea midline Cardiovascular: positive: Regular rate & rhythm, No murmur, No gallop Respiratory: positive: Chest non-tender, No respiratory distress, Diminished throughout Skin: positive: Pallor, Dryness Extremities: positive: Pedal edema (mild) Neurologic/Psychiatric: positive: Oriented x3, Mood/affect nml Palliative Care - POLST Patient has POLST: Yes POLST Status: DNR, Selective Treatment Performance Status: ambulatory, self transfers recommended he use oxygen continually smokes ~10 cigarettes daily, speaks of quitting poor appetite when he smokes - Palliative Care Discussion: Discussed goals of care and comfort care, hospice, he states "I'm not ready to sign my warrant yet" and confirms he still wants treatment in hospital if he can be stabilized. He says he'll quit smoking soon. His joys are going to the [facility] for lunch with his buddies, and his "great marleny," as his describes it, is sitting in his car at the beach about 2 hours a day, watching the boats come and go. His goal is to keep doing that. In the past he hasn't used his oxygen, and doesn't always take the portable tank along with him. His says she's much more aware and alert to what she should be on the lookout for in terms of exacerbations, and will be monitoring for signs of hypoxia and using the pulse oximeter more frequently. His asked how soon she could go back to aerobics class, she said she didn't feel comfortable leaving him yet. I suggested she wait a week, and see how he is progressing. She agreed with that. Impression and Recommendations - Palliative Care Impression: 83-year-old gentleman with severe end stage COPD and interstitial pulmonary disease just rehospitalized for COPD exacerbation, and on the day he was discharged, returned to the ED with further dsypnea. His PCP has referred him to Home Health Nursing, and Palliative Care will continue to follow and monitor. Recommendations/Counseling Done: End stage COPD: Stabilized at new baseline. He is a CO2 "retainer": pCO2 was 81mmHg in Apr 2018. PCP discontinued Breo Ellipta, but they had just got a new one. Left message with PCP office asking if they can use the Breo up before starting the new meds: Anoro, (umeclidinium and vilanterol 62.5mcg/25mcg) and Arnuity (fluticasone furoate 100mcg) inhalers. Duonebs nebulizer TID, but he's not compliant. O2 by nasal cannula 2L/hr, has a history of not using it consistently or taking it with him on his outings. PCP has referred him to Home Health nursing. HTN: BP 130/64. Continue lisinopril 10mg daily. Tobacco use disorder: 10 cigarettes a day, wants to quit smoking. Has nicotine gum he hasn't tried yet. Doesn't like nicotine patches, says they don't work. GERD: Ranitidine 150mg PO BID prn. Chronic atrial fibrillation: Continue Atenolol for rate control. Not on anticoagulation. Advance care planning: POLST in place: DNR and selective treatment. Patient wants transfer to hospital for reversible conditions, no Hospice, he's "not ready to sign my warrant yet." Time Spent: 60 minutes were spent with more than 50% of the time spent on counseling, education, anticipatory guidance, and coordination of care.
== END 2018-08-25 15:30 | disposition home or self-care (01) ==
LOC: PC 15:29
PROVIDERS: ATTEND Nurse Practitioner
DX: Z51.5 Encounter for palliative care (principal); J44.9 Chronic obstructive pulmonary disease, unspecified; J84.9 Interstitial pulmonary disease, unspecified; Z99.81 Dependence on supplemental oxygen; F17.210 Nicotine dependence, cigarettes, uncomplicated; I10 Essential (primary) hypertension; K21.9 Gastro-esophageal reflux disease without esophagitis; I48.2 Chronic atrial fibrillation; E11.9 Type 2 diabetes mellitus without complications; Z66 Do not resuscitate; Z79.82 Long term (current) use of aspirin; Z79.84 Long term (current) use of oral hypoglycemic drugs; Z79.51 Long term (current) use of inhaled steroids
CPT/HCPCS: 99350

== ENCOUNTER 2018-09-04 21:08 | Outpatient (CLI) | payer MEDICARE, OTHER | END 2018-09-04 21:09 | disposition EMS.NT | LOC: EMS 21:08 | PROVIDERS: ATTEND Surgery | DX: Z04.89 Encounter for examination and observation for other specified reasons (principal) ==

== ENCOUNTER 2018-09-13 22:57 | Outpatient (CLI) | payer MEDICARE, OTHER | END 2018-09-13 22:58 | disposition EMS.NT | LOC: EMS 22:57 | PROVIDERS: ATTEND Surgery | DX: R06.00 Dyspnea, unspecified (principal) ==

== ENCOUNTER 2018-09-22 15:49 | Outpatient (CLI) | payer MEDICARE, OTHER ==
--- NOTE | 2018-09-22 18:51 | CONSULTATION NOTE ---
Palliative Care Follow Up - Referral Referring Provider: Dr Biswas Time of Visit: 09/22/2018. 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 He was hospitalized 07/26-08/21/18 when he was found unresponsive at home with O2 sats in the 60s. He was treated in Acute Care with IV antibiotics, steroids, and Duonebs with good relief. He was discharged home, became dyspneic later that same day and went back to the ED. He was treated with Duonebs, restabilized, and was discharged home again (08/21/18). Medical History: COPD for more than 10 years; HTN; chronic atrial fibrillation; moderate R ventricular enlargement with EF 55-60%; glaucoma and cataracts; cholecystectomy; osteoarthritis with shoulder arthroplasty; DM II controlled, not on insulin; steroid induced hyperglycemia; h/o gastritis; tobacco use disorder but has quit smoking during hospitalization Patient has been home since last month's hospitalization. reports (patient is not present during this time) that patient's appetite has declined since 09/18, he states he just isn't hungry. But did want a sandwich after his first outpatient PT session this week. She reports he has also been sleeping more frequently, and has complained of increased congestion. She reports his cough is different from his baseline cough. He refused to use the Trilogy last night, says he is tired of it. When I inquired, he says he plans to continue using it. reports that he frequently does not take the portable oxygen with him, especially when meeting with his friends. Patient tells me he feels he is doing fine, though he's stayed at home this week due to the severe winter weather. He normally meets his friends at [facility] (it's being remodeled) [place]. Patient admits he is smoking, but "hopefully I will quit one day." says he's maybe a half pack a day now, was previously a whole pack. Discussed with patient the importance of eating even small amounts of protein and vegs (eggs, chicken, greens, etc). said she recently made his favorite food and he didn't eat any of it, saying he wasn't hungry. He admits it's hard to eat without an appetite but verbalizes understanding that it's important to get nourishment. We discussed he may have caught a virus; they confirmed getting the flu vaccine back in May. He is afebrile, appears at baseline. He denies fever, chills, muscle ache, malaise, cough, headache, sore throat, N/V. R lobes have no air sounds; diminished air sounds in L lower lobe. Social History - Living Situation Living arrangement: At home Living Situation: With spouse/s.o. Support System: Lives with of 57 years in their [facility] that they've owned since 1976. They moved here from [place]. They have 4 adult children: 2 in [place], 2 in [place] and one in [place], [place]. Medications/Allergies - Medications Home Medications: Ambulatory Orders Medication Instructions Recorded Confirmed Aspirin 81 mg PO DAILY 12/19/12 09/22/18 Atenolol [Tenormin] 50 mg PO DAILY 12/19/12 09/22/18 metFORMIN [Glucophage] 500 mg PO BID 10/14/14 09/22/18 Mirtazapine 15 mg PO QPM 04/12/18 09/22/18 Fluticasone/Vilanterol [Breo 1 puffs PO DAILY 05/05/18 09/22/18 Ellipta 200-25 Mcg INH] Ipratropium/Albuterol [Duoneb] 3 ml PO Q4H PRN 05/05/18 09/22/18 Lisinopril 10 mg PO DAILY 07/26/18 09/22/18 raNITIdine [Zantac] 1 tab PO TID 08/21/18 09/22/18 Albuterol Sulf [Ventolin Hfa 1 - 2 puffs INH Q4HR PRN #1 inhaler 08/22/18 09/22/18 Inhaler] - Allergies Allergies/Adverse Reactions: Allergies Allergy/AdvReac Type Severity Reaction Status Date / Time atorvastatin Allergy Intermediate Cramps Verified 08/21/18 19:13 Latex, Natural Rubber Allergy Intermediate blisters Verified 08/21/18 19:13 Sulfa (Sulfonamide Allergy Mild "sick Verified 08/21/18 19:13 Antibiotics) feeling" hydrocodone [Hydrocodone] AdvReac Mild "sick Verified 08/21/18 19:13 feeling" Review of Systems - Constitutional Constitutional: reports: Fatigue, Poor appetite, Weight loss (143 lbs today at home. 155.7 (70.76kg) 08/21/18 at ED. 146.5 (66.6kg) during hospitalization. 152 lbs 07/26/18. 152 lbs 05/31/18. 147.7 05/17/18. 142 lbs 04/27/18. His appetite declines when he smokes.). denies: Fever, Chills, Malaise, Night sweats - Ears, Nose & Throat Ears, Nose & Throat: reports: Hearing loss, Other (chest congestion; increased phlegm (per spouse)) - Cardiovascular Cardiovascular: reports: Exertional dyspnea, Decr. exercise tolerance. denies: Chest pain, Edema, Lightheadedness - Respiratory Respiratory: reports: SOB with exertion. denies: Pleuritic pain - Gastrointestinal Gastrointestinal: reports: Poor appetite. denies: Constipation - Genitourinary Genitourinary: denies: Dysuria, Incontinence - Musculoskeletal Musculoskeletal: reports: Stiffness, Limited range of motion. denies: Assistive devices, Transfer issues - Endocrine Endocrine: reports: Diabetes type 2 Physical Exam - Vital Signs Temperature: 96.7 F Pulse Rate: 50 O2 Saturation: 95 (2L) Blood Pressure: 135/59 - Physical Exam General Appearance: positive: No acute distress, Alert, Cachetic Eyes Bilateral: positive: No lid inflammation, Conjunctivae nml ENT: positive: Dry mucous membranes Neck: positive: Trachea midline Cardiovascular: positive: Regular rate & rhythm, No murmur, No gallop Respiratory: positive: Chest non-tender, No respiratory distress, Diminished throughout (Diminished R lobe, no air sounds. Diminished in L base; air sounds in upper LL.), Wheezes (expiratory). negative: Rales, Rhonchi Skin: positive: Dryness Extremities: positive: No pedal edema Neurologic/Psychiatric: positive: Oriented x3, Mood/affect nml Palliative Care - POLST Patient has POLST: Yes POLST Status: DNR, Selective Treatment Anorexia: Severe (7-10) (nearly no appetite x 4 days), Weight loss (143 lbs at home; previously 150 lbs at doctor office, 147 lbs at home) Sleep: Other (increased sleeping) Performance Status: sleeps more poorer appetite, especially past 4 days increased coughing and phlegm x several days ambulatory, self transfers recommended he use oxygen continually continues to smoke, ranges from 1/2 - 1 pack daily. At contemplation stage. 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 He remains weak, is deconditioned, status has declined (poor appetite, increased sleep), reports increased chest congestion. Is afebrile, no chills, malaise, headache, but R upper lobe with diminished breath sounds. May be brewing a viral infection. Palliative Care will continue to follow and monitor. Recommendations/Counseling Done: End stage COPD: Lower baseline than previous to last month's COPD exacerbation. He's a CO2 "retainer": pCO2 was 81mmHg in Apr 2018. O2 sats have been normal. Patient has increased sleep and poorer appetite. Complains of more congestion and phlegm; has diminished sounds in R lung. May be brewing a viral infection. No fever, chills, malaise, headache, sore throat. Discussed risks of using antibiotics on viral infections, agreed to wait and see, call 911 if condition deterioriates, fever, respiratory difficulties. Will follow up next week. Continue Breo Ellipta, and when that supply runs out, start Anoro, (umeclidinium and vilanterol 62.5mcg/25mcg) and Arnuity (fluticasone furoate 100mcg) inhalers. Duonebs nebulizer TID, but he uses it BID. Continue O2 by nasal cannula 2L/hr. Continue on Trilogy -- he refused it last night, said he's tired of it (the rep was just out recently, provided a new mask). But confirmed he will start using it. He has just started outpatient PT for rehab from last month's COPD exacerbation HTN: BP stable, 135/59 today. Continue lisinopril and atenolol. Chronic atrial fibrillation: Atenolol for rate control. Not on anticoagulation; on aspirin. Tobacco use disorder: No change. reports he has cut down from 1 pack to 1/2 pack daily. Hasn't used the nicotine gum. Doesn't like nicotine patches. GERD: Ranitidine 150mg PO BID prn. Advance care planning: POLST is DNR and selective treatment. Patient wants transfer to hospital for reversible conditions. Follow up next week. Time Spent: 60 minutes were spent with more than 50% of the time spent on counseling, education, anticipatory guidance, and coordination of care.
== END 2018-09-22 15:50 | disposition home or self-care (01) ==
LOC: PC 15:49
PROVIDERS: ATTEND Nurse Practitioner
DX: Z51.5 Encounter for palliative care (principal); J44.9 Chronic obstructive pulmonary disease, unspecified; R63.0 Anorexia; R53.83 Other fatigue; I11.9 Hypertensive heart disease without heart failure; I48.2 Chronic atrial fibrillation; K21.9 Gastro-esophageal reflux disease without esophagitis; J84.9 Interstitial pulmonary disease, unspecified; E11.9 Type 2 diabetes mellitus without complications; Z72.0 Tobacco use; Z99.81 Dependence on supplemental oxygen; Z79.84 Long term (current) use of oral hypoglycemic drugs; Z66 Do not resuscitate; Z79.51 Long term (current) use of inhaled steroids; Z79.899 Other long term (current) drug therapy
CPT/HCPCS: 99350

== ENCOUNTER 2018-10-14 13:33 | Inpatient (IN) | payer MEDICARE, OTHER ==
--- NOTE | 2018-10-14 14:18 | ED Physician Documentation ---
PD HPI URI - Stated complaint Stated Complaint: SOA - Chief complaint Chief Complaint: Resp - History obtained from History obtained from: Patient - History of Present Illness Timing - onset: How many days ago (2-3 days of cough and worsening dyspnea. Today with lethargy as well.) Timing duration: Days (2-3) Timing details: Gradual onset, Still present Associated symptoms: Productive cough, Dyspnea, Other (decreased mentation today). No: Fever, NVD, Bilateral edema Contributing factors: COPD / asthma. No: Sick contact Similar symptoms before: Has not had sx before (He has had exacerbation of his asthma and COPD with infections in the past. He has not had the degree of altered mentation as he has today.) Recently seen: Not recently seen Review of Systems Unable to obtain: AMS (so info some from him and more from his .) Constitutional: denies: Fever Nose: reports: Congestion Cardiac: reports: Chest pain / pressure (with coughing) Respiratory: reports: Dyspnea, Cough, Wheezing GI: denies: Abdominal Pain, Vomiting, Diarrhea Neurologic: reports: Generalized weakness, Altered mental status PD PAST MEDICAL HISTORY - Past Medical History Cardiovascular: High cholesterol, Atrial fibrillation Respiratory: COPD, Shortness of breath, Other Neuro: None Endocrine/Autoimmune: Type 2 diabetes GI: GERD, Other : None HEENT: Glaucoma, Other Psych: None Musculoskeletal: Osteoarthritis Derm: None - Past Surgical History Past Surgical History: Yes General: EGD, Cholecystectomy, Colonoscopy Ortho: Shoulder arthroplasty HEENT: Cataracts - Present Medications Home Medications: Ambulatory Orders Medication Instructions Recorded Confirmed Aspirin 81 mg PO DAILY 12/19/12 10/14/18 Atenolol [Tenormin] 50 mg PO DAILY 12/19/12 10/14/18 metFORMIN [Glucophage] 500 mg PO BID 10/14/14 10/14/18 Mirtazapine 15 mg PO QPM 04/12/18 10/14/18 Fluticasone/Vilanterol [Breo 1 puffs PO DAILY 05/05/18 10/14/18 Ellipta 200-25 Mcg INH] Ipratropium/Albuterol [Duoneb] 3 ml PO Q4H PRN 05/05/18 10/14/18 Lisinopril 10 mg PO DAILY 07/26/18 10/14/18 raNITIdine [Zantac] 150 mg PO TID 08/21/18 10/14/18 Albuterol Sulf [Ventolin Hfa 1 - 2 puffs INH Q4HR PRN #1 inhaler 08/22/18 10/14/18 Inhaler] - Allergies Allergies/Adverse Reactions: Allergies Allergy/AdvReac Type Severity Reaction Status Date / Time atorvastatin Allergy Intermediate Cramps Verified 10/14/18 13:43 Latex, Natural Rubber Allergy Intermediate blisters Verified 10/14/18 13:43 Sulfa (Sulfonamide Allergy Mild "sick Verified 10/14/18 13:43 Antibiotics) feeling" hydrocodone [Hydrocodone] AdvReac Mild "sick Verified 10/14/18 13:43 feeling" - Living Situation Living Situation: reports: With spouse/s.o. Living Arrangement: reports: At home - Social History Does the pt smoke?: No Smoking Status: Never smoker Does the pt drink ETOH?: No Does the pt have substance abuse?: No - Family History Family history: reports: Non contributory - Immunizations Immunizations are current?: Yes - POLST Patient has POLST: Yes POLST Status: DNR PD ED PE NORMAL - Vitals Vital signs reviewed: Yes - General General: No acute distress. No: Well developed/nourished (He is rather frail and poor muscle mass and tone.) - Neck Neck: Supple, no meningeal sign, No adenopathy - Cardiac Cardiac: RRR, No murmur - Respiratory Respiratory: No: Clear bilaterally (diffuse wheezing without accessory muscle use. He has reasonable tidal volume but is not tachypneic as I might expect. ) - Abdomen Abdomen: Soft, Non tender - Derm Derm: Warm and dry. No: Normal color (pale) - Extremities Extremities: Normal ROM s pain, No edema, No calf tenderness / cord - Neuro Neuro: Alert and oriented X 3 (answers questions simply and weak voice. ), chief nursing officer 2-12 intact Eye Opening: To Voice Motor: Obeys Commands Verbal: Confused GCS Score: 13 Results - Vitals Vitals: Vital Signs - 24 hr 10/14/18 10/14/18 10/14/18 13:37 15:22 15:41 Temperature 37.2 C Heart Rate 57 L 54 L 53 L Respiratory 18 24 15 Rate Blood Pressure 142/49 H 125/47 L O2 Saturation 100 10/14/18 15:50 Temperature Heart Rate 49 L Respiratory Rate Blood Pressure O2 Saturation Oxygen O2 Source [With Activity] Nasal cannula O2 Source [Without Activity] Nasal cannula O2 Source Nasal cannula Oxygen Flow Rate 4 - Labs Labs: Laboratory Tests 10/14/18 10/14/18 10/14/18 14:20 15:00 15:30 WBC 7.3 RBC 4.46 L Hgb 11.8 L Hct 37.1 L MCV 83.3 MCH 26.4 L MCHC 31.7 L RDW 17.1 H Plt Count 113 L MPV 9.5 Neut # (Auto) 5.3 Lymph # (Auto) 1.3 L J[place]uld # (Auto) 0.4 Eos # (Auto) 0.3 Baso # (Auto) 0.0 Absolute Nucleated RBC 0.00 Nucleated RBC % 0.0 Bld Gas Analysis Time 1517 Sample Site RIGHT RADIAL ABG pH 7.05 L* ABG pCO2 163 H* ABG pO2 297 H* ABG HCO3 44.2 H ABG Total CO2 49.2 H* ABG O2 Saturation 99 H ABG Base Excess 8.6 H Beltran Test POSITIVE O2 Delivery Device NASAL CANNULA O2 Liters/Min 4.00 Sodium 138 Potassium 4.9 Chloride 90 L Carbon Dioxide 41 H* Anion Gap 7.0 BUN 23 H Creatinine 0.7 Estimated GFR (MDRD) 108 Glucose 112 H Lactic Acid Calcium 9.0 Magnesium Total Bilirubin 0.3 AST 11 ALT < 10 L Alkaline Phosphatase 59 Troponin I B-Natriuretic Peptide Total Protein 7.1 Albumin 3.7 Globulin 3.4 Albumin/Globulin Ratio 1.1 Lipase 22 Influenza A (Rapid) Influenza B (Rapid) 10/14/18 10/14/18 10/14/18 15:30 15:30 15:30 WBC RBC Hgb Hct MCV MCH MCHC RDW Plt Count MPV Neut # (Auto) Lymph # (Auto) Jerauld # (Auto) Eos # (Auto) Baso # (Auto) Absolute Nucleated RBC Nucleated RBC % Bld Gas Analysis Time Sample Site ABG pH ABG pCO2 ABG pO2 ABG HCO3 ABG Total CO2 ABG O2 Saturation ABG Base Excess Beltran Test O2 Delivery Device O2 Liters/Min Sodium Potassium Chloride Carbon Dioxide Anion Gap BUN Creatinine Estimated GFR (MDRD) Glucose Lactic Acid 0.4 L Calcium Magnesium 1.9 Total Bilirubin AST ALT Alkaline Phosphatase Troponin I < 0.04 B-Natriuretic Peptide Total Protein Albumin Globulin Albumin/Globulin Ratio Lipase Influenza A (Rapid) Influenza B (Rapid) 10/14/18 10/14/18 15:30 15:50 WBC RBC Hgb Hct MCV MCH MCHC RDW Plt Count MPV Neut # (Auto) Lymph # (Auto) Jerauld # (Auto) Eos # (Auto) Baso # (Auto) Absolute Nucleated RBC Nucleated RBC % Bld Gas Analysis Time Sample Site ABG pH ABG pCO2 ABG pO2 ABG HCO3 ABG Total CO2 ABG O2 Saturation ABG Base Excess Beltran Test O2 Delivery Device O2 Liters/Min Sodium Potassium Chloride Carbon Dioxide Anion Gap BUN Creatinine Estimated GFR (MDRD) Glucose Lactic Acid Calcium Magnesium Total Bilirubin AST ALT Alkaline Phosphatase Troponin I B-Natriuretic Peptide 319 H Total Protein Albumin Globulin Albumin/Globulin Ratio Lipase Influenza A (Rapid) Negative Influenza B (Rapid) Negative PD MEDICAL DECISION MAKING - ED course Complexity details: reviewed results, re-evaluated patient, considered differential (He has decreased level of consciousness but is able to arouse to verbal and tactile stimuli. He has a weak voice but is able to answer questions yes no and single word answers. He appears to be ventilating okay though somewhat shallow. He has diffuse wheezing. There is no retractions. His chest x-ray did not show any significant infiltrate but be worried about infection given his history of COPD and the recent cough. He does have a quite elevated PCO2 level consistent with respiratory failure and this likely accounts for his lethargy. We will try him on BiPAP which is in concurrence with the family. He is DNR and I confirmed that with family members.), d/w patient, d/w family (I confirmed with his and daughters that he is a DNR. IV fluids antibiotics steroids and trial of BiPAP are acceptable but he would not want to be intubated and has a pulsed form.) Departure - Departure Disposition: [facility] DC/Xfer Clinical Impression: Acute exacerbation of COPD with asthma Respiratory failure Qualifiers: Chronicity: acute Respiratory failure complication: hypercapnia Qualified Code(s): J96.02 - Acute respiratory failure with hypercapnia Condition: Critical Record reviewed to determine appropriate education?: Yes Discharge Date/Time: 10/14/18 18:32
[2018-10-14 14:26] LABS: BASOPHILS % (AUTO) 0.4 %; EOSINOPHILS # (AUTO) 0.3 10^3/uL (0.0-0.7); EOSINOPHILS % (AUTO) 3.5 %; HGB - HEMOGLOBIN 11.8 g/dL (14.0-18.0); LYMPHOCYTES # (AUTO) 1.3 10^3/uL (1.5-3.5); LYMPHOCYTES % (AUTO) 17.5 %; MEAN CORPUSCULAR HEMOGLOBIN 26.4 pg (27.0-31.0); MEAN CORPUSCULAR HGB CONC 31.7 g/dL (32.0-36.0); MEAN CORPUSCULAR VOLUME 83.3 fL (80.0-94.0); MEAN PLATELET VOLUME 9.5 fL (7.4-11.4); MONOCYTES # (AUTO) 0.4 10^3/uL (0.0-1.0); MONOCYTES % (AUTO) 5.3 %; NEUTROPHILS # (AUTO) 5.3 10^3/uL (1.5-6.6); NEUTROPHILS % (AUTO) 73.3 %; PLT - PLATELET COUNT 113 10^3/uL (130-450); RED BLOOD COUNT 4.46 10^6/uL (4.70-6.10); RED CELL DISTRIBUTION WIDTH 17.1 % (12.0-15.0); WHITE BLOOD COUNT 7.3 x10^3/uL (4.8-10.8)
[2018-10-14] MEDS ORDERED: SODIUM CHLORIDE 0.9% 1,000 ML IV ONE (14:46)
[2018-10-14] MEDS ORDERED: ONDANSETRON 4 MG/2 ML VIAL IVP STA (14:47)
[2018-10-14] MEDS ORDERED: IPRATROPIUM/ALBUTEROL 3 ML NEB INH STA (14:47)
[2018-10-14 15:19] LABS: ABG BASE EXCESS 8.6 mmol/L (-2.0-3.0); ABG HCO3 44.2 mmol/L (22.0-26.0); ABG OXYGEN SATURATION 99 % (94-98)
[2018-10-14 15:20] LABS: ALLEN TEST POSITIVE
[2018-10-14 15:24] LABS: ABG PCO2 163 mmHg (34-45); ABG PH 7.05 (7.35-7.45); ABG PO2 297 mmHg (80-100); ABG TCO2 49.2 MMOL/L (21.0-29.0)
[2018-10-14] MEDS ORDERED: cefTRIAXone 1 GM VIAL IVP STA (15:44)
[2018-10-14] MEDS ORDERED: DEXAMETHASONE 10 MG/ML VIAL IVP STA (15:44)
[2018-10-14] MEDS ORDERED: AZITHROMYCIN INJ 500 MG in SODIUM CHLORIDE 0.9% 250 ML IV STA (15:44)
--- NOTE | 2018-10-14 15:57 | XRAY Report ---
Reason: dyspnea and cough Procedure Date: 10/14/2018 Accession Number: [id number] / [id number] Procedure: XR - Chest 1 View X-Ray CPT Code: 03952 FULL RESULT: EXAM: CHEST RADIOGRAPHY EXAM DATE: 10/14/2018 03:10 PM. CLINICAL HISTORY: Dyspnea and cough. COMPARISON: CHEST 1 VIEW 08/19/2018 2:01 PM CHEST W/O 04/13/2018 6:29 PM. TECHNIQUE: 1 view. FINDINGS: Lungs/Pleura: There is coarse reticular opacity within the lungs, not significantly changed as compared to the previous examination. There is no evidence of focal infiltrate. Small effusions may be present. No pneumothorax. Mediastinum: Within exam limitations, the cardiomediastinal contour is normal. Other: None. IMPRESSION: 1. Normal lung volumes and heart size. 2. Relative stable coarse reticular opacity within the lungs which likely represents interstitial lung disease. 3. Small effusions may be present. 4. There is no evidence of pneumothorax. RADIA
[2018-10-14] MEDS ORDERED: ONDANSETRON 4 MG/2 ML VIAL IVP PRN (16:01)
[2018-10-14] MEDS ORDERED: ONDANSETRON ODT 4 MG TABLET TL PRN (16:01)
[2018-10-14 16:19] LABS: ALBUMIN 3.7 g/dL (3.2-5.5); ALBUMIN/GLOBULIN RATIO 1.1 (1.0-2.2); ALKALINE PHOSPHATASE 59 IU/L (42-121); ALT ALANINE AMINOTRANSFERASE < 10 IU/L (10-60); AST ASPARTATE AMINOTRANSFERASE 11 IU/L (10-42); BILIRUBIN,TOTAL 0.3 mg/dL (0.2-1.0); BUN - BLOOD UREA NITROGEN 23 mg/dL (6-20); CHLORIDE 90 mmol/L (101-111); CREATININE 0.7 mg/dL (0.6-1.2); GFR - MDRD 108 (>89); GLUCOSE 112 mg/dL (70-100); LIPASE 22 U/L (22-51); SODIUM 138 mmol/L (135-145); TOTAL PROTEIN 7.1 g/dL (6.7-8.2)
[2018-10-14 16:20] LABS: CARBON DIOXIDE - CO2 41 mmol/L (21-32)
--- NOTE | 2018-10-14 16:31 | HISTORY & PHYSICAL EXAMINATION ---
Chief Complaint - Chief Complaint Chief Complaint: Lethargy with associated shortness of breath as it pertains to his COPD Respiratory Admission HPI - Admitted From Admitted from: ED - History Obtained From Records Reviewed: RN notes reviewed, Old records reviewed History obtained from: Family Exam limitations: Clinical condition (Patient was lethargic and in CO2 narcosis) - History of Present Illness HPI Comment/Other: This is a pleasant 83-year-old male with a history of interstitial lung disease COPD who Marck 2 L nasal cannula oxygen dependent with nebulizers at home essentially presented in acute respiratory failure with hypoxemia and CO2 narcosis with a PCO2 of 163. Patient was unable to give a thorough history due to patient's clinical condition. Patient was afebrile with a heart rate of 53, blood pressure 108/46 with a respiratory rate of 16, initial ABG done at 4 L nasal cannula showed a PH of 7.05, with a PO2 of 297, bicarb of 44.2 and a PCO2 of 163. Lactic acid was 0.4 along with a magnesium 1.9 electrolytes look normal with a normal renal function of creatinine 0.7 and a troponin unremarkable pa tient did have thrombocytopenia with a platelet of 113. Patient was subsequently placed on BiPAP for CO2 narcosis and will be admitted for further evaluation management treatment. Patient is a DNR.2-3 days of cough and worsening dyspnea. Today with lethargy as well. Latest VBG shows a pH of 7.188, PCO2 of 122, bicarb of 46.7 PMH/PSH - Past Medical History Cardiovascular: positive: High cholesterol, Atrial fibrillation Respiratory: positive: COPD, Shortness of breath, Other Neuro: positive: None Endocrine/Autoimmune: positive: Type 2 diabetes GI: positive: GERD, Other : positive: None HEENT: positive: Glaucoma, Other Psych: positive: None Musculoskeletal: positive: Osteoarthritis Derm: positive: None MRSA Hx?: No - Past Surgical History General: positive: EGD, Cholecystectomy, Colonoscopy Ortho: positive: Shoulder arthroplasty HEENT: positive: Cataracts Social & Family Hx - Social History Does the pt smoke?: No Smoking Status: Never smoker Does the pt drink ETOH?: No Does the pt have substance abuse?: No - POLST Patient has POLST: Yes POLST Status: DNR Meds/Allgy - Home Medications Home Medications: Ambulatory Orders Medication Instructions Recorded Confirmed Aspirin 81 mg PO DAILY 12/19/12 10/14/18 Atenolol [Tenormin] 50 mg PO DAILY 12/19/12 10/14/18 metFORMIN [Glucophage] 500 mg PO BID 10/14/14 10/14/18 Mirtazapine 15 mg PO QPM 04/12/18 10/14/18 Fluticasone/Vilanterol [Breo 1 puffs PO DAILY 05/05/18 10/14/18 Ellipta 200-25 Mcg INH] Ipratropium/Albuterol [Duoneb] 3 ml PO Q4H PRN 05/05/18 10/14/18 Lisinopril 10 mg PO DAILY 07/26/18 10/14/18 raNITIdine [Zantac] 150 mg PO TID 08/21/18 10/14/18 Albuterol Sulf [Ventolin Hfa 1 - 2 puffs INH Q4HR PRN #1 inhaler 08/22/18 10/14/18 Inhaler] - Allergies Allergies/Adverse Reactions: Allergies Allergy/AdvReac Type Severity Reaction Status Date / Time atorvastatin Allergy Intermediate Cramps Verified 10/14/18 13:43 Latex, Natural Rubber Allergy Intermediate blisters Verified 10/14/18 13:43 Sulfa (Sulfonamide Allergy Mild "sick Verified 10/14/18 13:43 Antibiotics) feeling" hydrocodone [Hydrocodone] AdvReac Mild "sick Verified 10/14/18 13:43 feeling" Review of Systems - All Other Systems All Other Systems: reports: Reviewed and negative Prior Level of Functionality: Patient has unclear independent home ADLs status Exam - Vital Signs Reviewed Vital Signs: Yes Vital Signs: Vital Signs x48h Temp Pulse Resp BP Pulse Ox 10/14/18 16:10 53 L 16 108/46 L 10/14/18 15:50 49 L 10/14/18 15:41 53 L 15 125/47 L 10/14/18 15:22 54 L 24 10/14/18 13:37 37.2 C 57 L 18 142/49 H 100 - Physical Exam General Appearance: positive: Moderate distress, Lethargic Eyes Bilateral: positive: PERRL, Conjunctivae nml ENT: positive: Pharynx nml, No signs of dehydration Neck: positive: Nml inspection, Thyroid nml, No JVD Respiratory: positive: Chest non-tender, Wheezes (FaintTo the lung bases), Rhonchi, Other (Increased work of breath on BiPAP) Cardiovascular: positive: Regular rate & rhythm, No murmur, No gallop Peripheral Pulses: positive: 2+ Abdomen: positive: Non-tender, No organomegaly, Nml bowel sounds, No distention Skin: positive: Color nml, No rash, Warm Extremities: positive: Non-tender, No pedal edema. negative: Calf tenderness, Joint swelling Neurologic/Psychiatric: positive: Other (Unable to perform neurologic psychiatric due to patient's acute respiratory failure status) Results - Lab Results Lab results reviewed: Yes Fish Bones: 10/14/18 14:20 10/14/18 15:30 Other Lab Results: Lab Results x24hrs 10/14/18 10/14/18 10/14/18 Range/Units 15:30 15:30 15:30 WBC (4.8-10.8) x10^3/uL RBC (4.70-6.10) 10^6/uL Hgb (14.0-18.0) g/dL Hct (42.0-52.0) % MCV (80.0-94.0) fL MCH (27.0-31.0) pg MCHC (32.0-36.0) g/dL RDW (12.0-15.0) % Plt Count (130-450) 10^3/uL MPV (7.4-11.4) fL Neut # (Auto) (1.5-6.6) 10^3/uL Lymph # (Auto) (1.5-3.5) 10^3/uL Vilas # (Auto) (0.0-1.0) 10^3/uL Eos # (Auto) (0.0-0.7) 10^3/uL Baso # (Auto) (0.0-0.1) 10^3/uL Absolute Nucleated RBC x10^3/uL Nucleated RBC % /100WBC Bld Gas Analysis Time Sample Site ABG pH (7.35-7.45) ABG pCO2 (34-45) mmHg ABG pO2 (80-100) mmHg ABG HCO3 (22.0-26.0) mmol/L ABG Total CO2 (21.0-29.0) MMOL/L ABG O2 Saturation (94-98) % ABG Base Excess (-2.0-3.0) mmol/L Beltran Test O2 Delivery Device O2 Liters/Min LPM Sodium (135-145) mmol/L Potassium (3.5-5.0) mmol/L Chloride (101-111) mmol/L Carbon Dioxide (21-32) mmol/L Anion Gap (6-13) BUN (6-20) mg/dL Creatinine (0.6-1.2) mg/dL Estimated GFR (MDRD) (>89) Glucose (70-100) mg/dL Lactic Acid 0.4 L (0.5-2.2) mmol/L Calcium (8.5-10.3) mg/dL Magnesium (1.7-2.8) mg/dL Total Bilirubin (0.2-1.0) mg/dL AST (10-42) IU/L ALT (10-60) IU/L Alkaline Phosphatase (42-121) IU/L Troponin I < 0.04 (<0.49) ng/mL B-Natriuretic Peptide 319 H (5-100) pg/mL Total Protein (6.7-8.2) g/dL Albumin (3.2-5.5) g/dL Globulin (2.1-4.2) g/dL Albumin/Globulin Ratio (1.0-2.2) Lipase (22-51) U/L 10/14/18 10/14/18 10/14/18 Range/Units 15:30 15:30 15:00 WBC (4.8-10.8) x10^3/uL RBC (4.70-6.10) 10^6/uL Hgb (14.0-18.0) g/dL Hct (42.0-52.0) % MCV (80.0-94.0) fL MCH (27.0-31.0) pg MCHC (32.0-36.0) g/dL RDW (12.0-15.0) % Plt Count (130-450) 10^3/uL MPV (7.4-11.4) fL Neut # (Auto) (1.5-6.6) 10^3/uL Lymph # (Auto) (1.5-3.5) 10^3/uL Vilas # (Auto) (0.0-1.0) 10^3/uL Eos # (Auto) (0.0-0.7) 10^3/uL Baso # (Auto) (0.0-0.1) 10^3/uL Absolute Nucleated RBC x10^3/uL Nucleated RBC % /100WBC Bld Gas Analysis Time 1517 Sample Site RIGHT RADIAL ABG pH 7.05 L* (7.35-7.45) ABG pCO2 163 H* (34-45) mmHg ABG pO2 297 H* (80-100) mmHg ABG HCO3 44.2 H (22.0-26.0) mmol/L ABG Total CO2 49.2 H* (21.0-29.0) MMOL/L ABG O2 Saturation 99 H (94-98) % ABG Base Excess 8.6 H (-2.0-3.0) mmol/L [facility]tran Test POSITIVE O2 Delivery Device NASAL CANNULA O2 Liters/Min 4.00 LPM Sodium 138 (135-145) mmol/L Potassium 4.9 (3.5-5.0) mmol/L Chloride 90 L (101-111) mmol/L Carbon Dioxide 41 H* (21-32) mmol/L Anion Gap 7.0 (6-13) BUN 23 H (6-20) mg/dL Creatinine 0.7 (0.6-1.2) mg/dL Estimated GFR (MDRD) 108 (>89) Glucose 112 H (70-100) mg/dL Lactic Acid (0.5-2.2) mmol/L Calcium 9.0 (8.5-10.3) mg/dL Magnesium 1.9 (1.7-2.8) mg/dL Total Bilirubin 0.3 (0.2-1.0) mg/dL AST 11 (10-42) IU/L ALT < 10 L (10-60) IU/L Alkaline Phosphatase 59 (42-121) IU/L Troponin I (<0.49) ng/mL B-Natriuretic Peptide (5-100) pg/mL Total Protein 7.1 (6.7-8.2) g/dL Albumin 3.7 (3.2-5.5) g/dL Globulin 3.4 (2.1-4.2) g/dL Albumin/Globulin Ratio 1.1 (1.0-2.2) Lipase 22 (22-51) U/L 10/14/18 Range/Units 14:20 WBC 7.3 (4.8-10.8) x10^3/uL RBC 4.46 L (4.70-6.10) 10^6/uL Hgb 11.8 L (14.0-18.0) g/dL Hct 37.1 L (42.0-52.0) % MCV 83.3 (80.0-94.0) fL MCH 26.4 L (27.0-31.0) pg MCHC 31.7 L (32.0-36.0) g/dL RDW 17.1 H (12.0-15.0) % Plt Count 113 L (130-450) 10^3/uL MPV 9.5 (7.4-11.4) fL Neut # (Auto) 5.3 (1.5-6.6) 10^3/uL Lymph # (Auto) 1.3 L (1.5-3.5) 10^3/uL Vilas # (Auto) 0.4 (0.0-1.0) 10^3/uL Eos # (Auto) 0.3 (0.0-0.7) 10^3/uL Baso # (Auto) 0.0 (0.0-0.1) 10^3/uL Absolute Nucleated RBC 0.00 x10^3/uL Nucleated RBC % 0.0 /100WBC Bld Gas Analysis Time Sample Site ABG pH (7.35-7.45) ABG pCO2 (34-45) mmHg ABG pO2 (80-100) mmHg ABG HCO3 (22.0-26.0) mmol/L ABG Total CO2 (21.0-29.0) MMOL/L ABG O2 Saturation (94-98) % ABG Base Excess (-2.0-3.0) mmol/L Beltran Test O2 Delivery Device O2 Liters/Min LPM Sodium (135-145) mmol/L Potassium (3.5-5.0) mmol/L Chloride (101-111) mmol/L Carbon Dioxide (21-32) mmol/L Anion Gap (6-13) BUN (6-20) mg/dL Creatinine (0.6-1.2) mg/dL Estimated GFR (MDRD) (>89) Glucose (70-100) mg/dL Lactic Acid (0.5-2.2) mmol/L Calcium (8.5-10.3) mg/dL Magnesium (1.7-2.8) mg/dL Total Bilirubin (0.2-1.0) mg/dL AST (10-42) IU/L ALT (10-60) IU/L Alkaline Phosphatase (42-121) IU/L Troponin I (<0.49) ng/mL B-Natriuretic Peptide (5-100) pg/mL Total Protein (6.7-8.2) g/dL Albumin (3.2-5.5) g/dL Globulin (2.1-4.2) g/dL Albumin/Globulin Ratio (1.0-2.2) Lipase (22-51) U/L - Diagnostic Imaging Results Diagnostic Imaging Results: positive: Final report reviewed - EKG Results EKG Interpreted Independently: Yes EKG Comparison: positive: Old EKG unavailable EKG Findings: Patient has sinus rhythm at 58 bpm with LVH and ST-T wave abnormality in lateral leads Sepsis Event Note (H) - Evaluation Current Stage of Sepsis: Ruled out (No source of infection as patient has interstitial lung disease came in with CO2 narcosis) - Sepsis Criteria Sepsis Criteria: Respiratory: Increasing oxygen requirements, TILLER MAN: altered consciousness (unrelated to primary neuro pathology) Impression/Plan - Problem List Problem List: Assessment: 1. Acute hypoxemic/hypercapnic respiratory failure secondary to hypoventilation more than COPD exacerbation. 2. Acute respiratory acidosis with some compensatory response secondary to COPD exacerbation 3. Acute recurrent COPD exacerbation with underlying interstitial lung disease with home O2 dependency 4. Thrombocytopenia 5. Acute hypoxemic encephalopathy with associated lethargy 6. [id number]-[id number] type 2 diabetes mellitus 7. History of paroxysmal atrial fibrillation on atenolol 8. Hyperlipidemia 9. 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 Advance care education and planning 11. CODE STATUS: DNR Plan: We will continue with BiPAP, aggressive pulmonary treatments with IV Solu- Medrol, IV Levaquin, spirometry, pulmonary toileting, duo nebs, medical m anagement and supportive care for now. Poor prognosis at this point as patient has a PCO2 of 163 while being on 4 L nasal cannula. Will repeat ABG while on BiPAP, thrombocytopenia seen however high risk of DVT will continue with Lovenox for DVT prophylaxis. Patient's acute on chronic hypoxemic respiratory failure with hypercapnia visible on ABG and likely attributable to COPD exacerbation with underlying pulmonary fibrosis with interstitial lung disease. Patient will have a flu swab to rule out underlying viral source or etiology. Although patient meets underlying SIRS criteria currently no source of infection but will treat with IV antibiotics empirically as a COPD exacerbation. Patient has coarse reticular opacities with small bilateral effusions seen on chest x-ray. No ventricular strain seen on EKG and is on sinus bradycardia with troponin unremarkable. We will try to stabilize patient's CO2 narcosis and provide IV Diamox to excrete excess bicarb. Patient to be considered for palliative care and advanced care planning education and counseling will be discussed. Total critical time 30 minutes.
[2018-10-14] MEDS ORDERED: ALBUTEROL NEB 2.5 MG/3 ML INH STA (16:41)
[2018-10-14] MEDS ORDERED: LACTATED RINGERS 1,000 ML IV SCH (17:00)
[2018-10-14 17:45] LABS: ABG PO2 59 mmHg (80-100)
[2018-10-14 17:46] LABS: ABG BASE EXCESS 9.7 mmol/L (-2.0-3.0); ABG OXYGEN SATURATION 88 % (94-98); ALLEN TEST POSITIVE
[2018-10-14 17:50] LABS: ABG PH 7.14 (7.35-7.45)
[2018-10-14 17:51] LABS: ABG PCO2 131 mmHg (34-45)
[2018-10-14] MEDS: levoFLOXacin 750 MG/150 ML 750 MG/150 ML BAG IV SCH (19:25)
[2018-10-14] MEDS: SODIUM CHLORIDE FLUSH 0.9% 10 ML SYRINGE IVP SCH (19:26)
[2018-10-14] MEDS: IPRATROPIUM 0.2 MG/ML NEB INH SCH ×2 (19:48→21:33)
[2018-10-14] MEDS: ALBUTEROL NEB 2.5 MG/3 ML INH SCH ×2 (19:48→21:33)
[2018-10-14] MEDS: methylPREDNISolone SUCCINATE 40 MG/ML VIAL IVP SCH (20:02)
[2018-10-14] MEDS ORDERED: NON FORMULARY MED IVP SCH (21:00)
[2018-10-14] MEDS: FAMOTIDINE 20 MG/2 ML VIAL IVP SCH (21:31)
[2018-10-15 00:55] LABS: ABG PH 7.21 (7.35-7.45)
[2018-10-15 00:56] LABS: ABG BASE EXCESS 8.5 mmol/L (-2.0-3.0); ABG HCO3 39.7 mmol/L (22.0-26.0); ABG OXYGEN SATURATION 99 % (94-98); ALLEN TEST POSITIVE
[2018-10-15 00:58] LABS: ABG PCO2 102 mmHg (34-45); ABG PO2 193 mmHg (80-100); ABG TCO2 42.8 MMOL/L (21.0-29.0)
[2018-10-15] MEDS: SODIUM CHLORIDE FLUSH 0.9% 10 ML SYRINGE IVP SCH ×4 (01:24→23:24)
[2018-10-15] MEDS: methylPREDNISolone SUCCINATE 40 MG/ML VIAL IVP SCH ×5 (01:45→23:24)
[2018-10-15] MEDS: IPRATROPIUM 0.2 MG/ML NEB INH SCH ×3 (03:41→08:57)
[2018-10-15] MEDS: ALBUTEROL NEB 2.5 MG/3 ML INH SCH ×4 (03:41→15:30)
[2018-10-15 05:38] LABS: BASOPHILS % (AUTO) 0.1 %; EOSINOPHILS % (AUTO) 0.1 %; LYMPHOCYTES # (AUTO) 0.5 10^3/uL (1.5-3.5); LYMPHOCYTES % (AUTO) 12.3 %; MEAN CORPUSCULAR HEMOGLOBIN 26.2 pg (27.0-31.0); MEAN CORPUSCULAR HGB CONC 31.4 g/dL (32.0-36.0); MEAN CORPUSCULAR VOLUME 83.5 fL (80.0-94.0); MEAN PLATELET VOLUME 9.2 fL (7.4-11.4); MONOCYTES # (AUTO) 0.1 10^3/uL (0.0-1.0); MONOCYTES % (AUTO) 2.1 %; NEUTROPHILS # (AUTO) 3.7 10^3/uL (1.5-6.6); NEUTROPHILS % (AUTO) 85.4 %; PLT - PLATELET COUNT 82 10^3/uL (130-450); RED BLOOD COUNT 3.83 10^6/uL (4.70-6.10); RED CELL DISTRIBUTION WIDTH 16.6 % (12.0-15.0); WHITE BLOOD COUNT 4.3 x10^3/uL (4.8-10.8)
[2018-10-15 05:57] LABS: ALBUMIN 3.2 g/dL (3.2-5.5); BILIRUBIN,TOTAL 0.5 mg/dL (0.2-1.0); CALCIUM 8.8 mg/dL (8.5-10.3); CREATININE 1.2 mg/dL (0.6-1.2); TOTAL PROTEIN 6.4 g/dL (6.7-8.2)
[2018-10-15] MEDS ORDERED: LACTATED RINGERS 1,000 ML IV SCH (07:42)
[2018-10-15 08:26] LABS: % IRON SATURATION 21 % (20-50); IRON 63 ug/dL (45-182); TOTAL IRON BINDING CAPACITY 297 ug/dL (250-450); TRANSFERRIN 212 mg/dL (180-329)
[2018-10-15] MEDS: ENOXAPARIN 40 MG/0.4 ML SYRINGE SUBQ SCH (08:27)
[2018-10-15] MEDS: FAMOTIDINE 20 MG/2 ML VIAL IVP SCH ×2 (08:27→20:52)
[2018-10-15] MEDS: acetaZOLAMIDE 250 MG TABLET PO SCH ×2 (08:34→20:52)
[2018-10-15] MEDS ORDERED: ZINC OXIDE 20% OINT 28.35 GM TUBE TOP PRN (08:47)
[2018-10-15] MEDS ORDERED: MEGESTROL 400 MG/10 ML UDC PO SCH (09:00)
[2018-10-15] MEDS: POLYETHYLENE GLYCOL 3350 17 GM PACKET PO SCH (11:11)
[2018-10-15] MEDS: SODIUM CHLORIDE FLUSH 0.9% 10 ML SYRINGE IVP PRN (11:15)
[2018-10-15] MEDS ORDERED: ALBUTEROL NEB 2.5 MG/3 ML INH PRN (16:34)
[2018-10-15] MEDS: levoFLOXacin 750 MG/150 ML 750 MG/150 ML BAG IV SCH (17:50)
--- NOTE | 2018-10-15 18:06 | MISCELLANEOUS PROVIDER NOTE ---
Miscellaneous Provider Note - - Note: Subjective: Patient with improved mental status and shortness of breath however PCO2 ends up being still elevated. Denies fevers chills chest pain lower extremity edema GI/ symptoms. Objective: Vital signs are hemodynamically stable patient is afebrile heart rate of 66 with a blood pressure 119/49 respiratory 1800% O2 saturation on BiPAP 40% FiO2 patient was apparently taken off BiPAP and was placed back on BiPAP. General: Patient is chronically ill-appearing cachectic thin and mild respiratory distress HEENT: NCAT. No buccal lesions. Poor dentition. Pupils are equal round react light and accommodations. Neck: No JVD no bruits no lymphadenopathy. CV/lungs: S1-S2 within normal limits no murmurs gallops clicks or rubs decreased breath sounds with prolonged expiratory phase as well as bilateral expiratory rhonchi, no rales, mild increased work of breath with mild retractions. Next Abdomen: Soft nontender nondistended positive bowel sounds all quadrants no HSM Extremities/skin: No edema clubbing or cyanosis 2+ pulses dorsalis pedis Neuro: Grossly intact Labs: Reviewed Imaging studies: Reviewed Impression/Plan Problem List: Assessment: 1. Acute hypoxemic/hypercapnic respiratory failure secondary to hypoventilation more than COPD exacerbation. 2. Acute respiratory acidosis with some compensatory response secondary to COPD exacerbation 3. Acute recurrent COPD exacerbation with underlying interstitial lung disease with home O2 dependency 4. Thrombocytopenia 5. Acute hypoxemic encephalopathy with associated lethargy 6. [id number]-ybnavff-[id number] type 2 diabetes mellitus 7. History of paroxysmal atrial fibrillation on atenolol 8. Hyperlipidemia 9. 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 Advance care education and planning Plan: Patient with improvement to oxygenation although PCO2 still slightly elevated at 102 with a pH of 7.21 and on PO2 of 193 with a bicarbonate 39.7, Slightly compensated still receiving BiPAP intermittently was able to eat today however is cachectic BMI of 20.2 had been placed on Megace Remeron however is eating today. Dietitian has been consulted. We will continue with duo nebs, IV Levaquin, steroids, pulmonary toileting, medical management. Hemoglobin slightly down to 10 iron was checked and will be given IV iron if indicated. Patient had echocardiogram done which shows 55-60% ejection fraction,Grade 1 diastolic dysfunction Moderate right ventricular enlargement with a normal EF dated 04/12/18. Flu swab was negative. MRSA screen negative. BNP 319. Patient with acute renal insufficiency as patient's last creatinine was 0.7 today's 1.2. We will continue with IV fluids hydration of kidneys avoid nephrotoxic agents and correction of electrolyte disturbance. Patient has thrombocytopenia and is currently on Lovenox however high risk for DVT at this point. PT to follow out of bed 3 times daily. We will continue with Diamox 250 mg p.o. twice daily. Patient currently not ready for hospice care now. CODE STATUS remains DNR.
[2018-10-15 18:23] LABS: HB2 TOTAL 10.6 g/dL; HEMOGLOBIN A1C 0.38 g/dL; HEMOGLOBIN A1C % 5.4 % (4.6-6.2)
[2018-10-15] MEDS: IPRATROPIUM/ALBUTEROL 3 ML NEB INH SCH (19:32)
[2018-10-15] MEDS: QUEtiapine 25 MG TABLET PO SCH (20:52)
[2018-10-15] MEDS ORDERED: MIRTAZAPINE 15 MG TABLET PO SCH (21:00)
[2018-10-15] MEDS: INSULIN ASPART 300 UNIT/3 ML PEN SUBQ SCH (21:08)
[2018-10-16] MEDS: HALOPERIDOL 5 MG/ML VIAL IVP PRN ×3 (00:49→23:01)
[2018-10-16] MEDS: methylPREDNISolone SUCCINATE 40 MG/ML VIAL IVP SCH ×2 (06:35→18:12)
[2018-10-16] MEDS: IPRATROPIUM/ALBUTEROL 3 ML NEB INH SCH ×4 (07:33→20:55)
[2018-10-16] MEDS: INSULIN ASPART 300 UNIT/3 ML PEN SUBQ SCH ×4 (08:11→21:08)
[2018-10-16] MEDS: FAMOTIDINE 20 MG/2 ML VIAL IVP SCH (08:44)
[2018-10-16] MEDS: ENOXAPARIN 40 MG/0.4 ML SYRINGE SUBQ SCH (08:44)
[2018-10-16] MEDS: POLYETHYLENE GLYCOL 3350 17 GM PACKET PO SCH (08:44)
[2018-10-16] MEDS: SODIUM CHLORIDE FLUSH 0.9% 10 ML SYRINGE IVP SCH ×2 (08:44→18:12)
[2018-10-16] MEDS: acetaZOLAMIDE 250 MG TABLET PO SCH ×2 (08:44→21:03)
[2018-10-16 09:50] LABS: ABG BASE EXCESS 3.5 mmol/L (-2.0-3.0); ABG HCO3 31.5 mmol/L (22.0-26.0); ABG OXYGEN SATURATION 98 % (94-98); ABG PH 7.29 (7.35-7.45); ABG PO2 111 mmHg (80-100); ABG TCO2 33.5 MMOL/L (21.0-29.0)
[2018-10-16 09:51] LABS: ALLEN TEST POSITIVE
[2018-10-16 09:53] LABS: ABG PCO2 67 mmHg (34-45)
--- NOTE | 2018-10-16 10:44 | MISCELLANEOUS PROVIDER NOTE ---
Miscellaneous Provider Note - - Note: Subjective: Patient With CO2 narcosis and likely a component of Encephalopathy that appears to be multifactorial. Objective: Vital signs are hemodynamically stable patient is afebrile, Nontachypneic non-tachycardic non-hypoxemic on 96% O2 saturation on 4 L nasal cannula. General: Patient is chronically ill-appearing cachectic thin and Confused HEENT: NCAT. No buccal lesions. Poor dentition. Pupils are equal round react light and accommodations. Neck: No JVD no bruits no lymphadenopathy. CV/lungs: S1-S2 within normal limits no murmurs gallops clicks or rubs decreased breath sounds with prolonged expiratory phase as well as bilateral expiratory rhonchi, no rales, No retractions no increased work of breath. Abdomen: Soft nontender nondistended positive bowel sounds all quadrants no HSM Extremities/skin: No edema clubbing or cyanosis 2+ pulses dorsalis pedis Neuro: Grossly intact Labs: Reviewed Imaging studies: Reviewed Impression/Plan Problem List: Assessment: 1. Acute hypoxemic/hypercapnic respiratory failure secondary to hypoventilation more than COPD exacerbation. 2. Acute respiratory acidosis with some compensatory response secondary to COPD exacerbation 3. Acute recurrent COPD exacerbation with underlying interstitial lung disease with home O2 dependency 4. Acute renal insufficiency 5. Thrombocytopenia 6. Acute hypoxemic encephalopathy with Associated delirium 7. Nay-mpbviju-hyujgmuwg type 2 diabetes mellitus 8. History of paroxysmal atrial fibrillation 9. Hyperlipidemia 10. 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 Advance care education and planning Plan: Patient CO2 narcosis has markedly improved with an ABG today of PCO2 of 67 with pH 7.2 with a PO2 of 111 bicarb of 31.5. Patient did appear to have agitation and delirium as it pertained to his CO2 narcosis hypoxemia was given Haldol last night is around two-point restraints. Patient was agreeable to lab draws and will continue with monitoring mental status changes along with aspiration precautions. Speech therapy to evaluate for clinical swallowing and determination of food consistency. Patient remains on a hyperglycemic coverage with insulin sliding scale correctional as patient is tolerating 100% of his diet. Nutritionally iron panel is within normal limits. Patient is cachectic BMI of 20.2. Dietitian has been consulted. We will hold patient's atenolol for his paroxysmal atrial fibrillation as he is at times bradycardic. Continue with current medical management with duo nebs, IV Levaquin, steroids, pulmonary toileting, medical management. Patient had echocardiogram done which shows 55-60% ejection fraction,Grade 1 diastolic dysfunction Moderate right ventricular enlargement with a normal EF dated 04/12/18. Flu swab was negative. MRSA screen negative. BNP 319. Patient with acute renal insufficiency as patient's last creatinine was 0.7 today's 1.2. We will continue with IV fluids hydration of kidneys avoid nephrotoxic agents and correction of electrolyte disturbance. Patient has thrombocytopenia and is currently on Lovenox however high risk for DVT at this point. PT to follow out of bed 3 times daily. We will continue with Diamox 250 mg p.o. twice daily. Patient currently not ready for hospice care now. Palliative care service will be following. CODE STATUS remains DNR.
[2018-10-16] MEDS: SODIUM CHLORIDE 0.9% 1,000 ML IV SCH ×2 (11:00→22:29)
[2018-10-16] MEDS: SODIUM CHLORIDE FLUSH 0.9% 10 ML SYRINGE IVP PRN (11:01)
[2018-10-16] MEDS: MULTIVITAMIN W/MINERALS TABLET PO SCH (12:04)
[2018-10-16] MEDS ORDERED: FAMOTIDINE 20 MG/2 ML VIAL IVP SCH (12:43)
--- NOTE | 2018-10-16 13:14 | CONSULTATION NOTE ---
Palliative Care Follow Up - Referral Referring Provider: Blake Christie MD Time of Visit: Referral setting: Hospitalized patient Referral Reason: COPD/CO2 narcosis/Delerium - Information Sources Records reviewed: Previous records reviewed History/Review of Systems obtained from: Patient, Family ( Lyly at bedside) Exam limitations: Clinical condition (patient with acute paranoia/delusions/confusion) - History of Present Illness Update Brief HPI Update: This is an 83-year-old gentleman who is in ICU, he was admitted 10-14-18 for acute hypoxic/hypercapnic respiratory failure secondary to hypoventilation, acute respiratory acidosis, COPD exacerbation, and underlying interstitial lung disease with home O2 dependency. He has presented with increasing confusion, and associated delirium and required Haldol and restraints last night. Patient was also hospitalized in August for COPD as well. 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 Patient at baseline is often noncompliant with his oxygen therapy, often goes several hours without it. He is continue to smoke about a half a pack a day. He has had progressive weight loss, as low as 136, with unknown etiology. Patient reports his appetite is quite good, and is eating fairly robustly during our visit. Patient is quite confused, is disoriented to place and time, is quite delusional as far as last 24 hours, thinking he was in the old wing, there is a conspiracy around his care. He is able to engage in conversation, though information is not accurate, and easily escalates as far as distress. Patient is unknown to this palliative care practitioner, but in follow-up with reports this is not ever happened as far as his baseline. She does report he is stubborn, and often does things his own way, but has not been confused. Social History - Living Situation Living arrangement: At home Living Situation: With spouse/s.o. Support System: Patient has had home health support in the fall, he is now participating in outpatient physical therapy. He lives with his of 57 years. They have 4 children, 2 in [place] and 2 in [place]. She does not identify anyone that can help with his increased care needs. Given his current condition, she is concerned about being able to meet his needs at home. Patient has long history of meeting with his friends for coffee at the [facility] for a couple hours every morning without his oxygen, has felt poorly and not been able to participate the last few days. Medications/Allergies - Medications Active Medication List: Active Medications Acetazolamide (Diamox) 250 mg PO BID [facility] Last Admin: 10/16/18 08:44 Dose: 250 mg Albuterol () 2.5 mg INH RTQ4H PRN PRN Reason: Wheezing Last Admin: 10/16/18 01:29 Dose: 2.5 mg Albuterol/Ipratropium (Duoneb) 3 ml INH RTQID [facility] Last Admin: 10/16/18 11:20 Dose: 3 ml Enoxaparin Sodium (Lovenox) 40 mg SUBQ DAILY [facility] Last Admin: 10/16/18 08:44 Dose: 40 mg Famotidine (Pepcid) 20 mg IVP DAILY [facility] Haloperidol (Haldol Inj) 2 mg IVP Q6H PRN PRN Reason: Agitation Last Admin: 10/16/18 06:35 Dose: 2 mg Sodium Chloride (Normal Saline 0.9%) 1,000 mls @ 100 mls/hr IV .Q10H [facility] Last Infusion: 10/16/18 13:00 Dose: 100 mls/hr Levofloxacin (Levaquin 500 Mg/100 Ml) 500 mg in 100 mls @ 66.667 mls/hr IV Q24H [facility] Insulin Aspart (Novolog) 2 - 10 unit SUBQ 0800,1200,1700,2100 [facility]; Protocol Last Admin: 10/16/18 11:41 Dose: Not Given Methylprednisolone (Solu-Medrol (40mg Vial)) 40 mg IVP 0600,1800 [facility] Multi-Ingredient Ointment (Zinc Oxide) 1 applic TOP PRN PRN PRN Reason: Skin Care Multivitamins/Minerals (Theragran M) 1 tab PO DAILYWM [facility] Last Admin: 10/16/18 12:04 Dose: 1 tab Ondansetron HCl (Zofran Inj) 4 mg IVP Q6HR PRN PRN Reason: Nausea / Vomiting Ondansetron HCl (Zofran Odt) 4 mg TL Q6HR PRN PRN Reason: Nausea / Vomiting Polyethylene Glycol (Miralax) 17 gm PO DAILY [facility] Last Admin: 10/16/18 08:44 Dose: 17 gm Quetiapine Fumarate (Seroquel) 25 mg PO QPM [facility] Last Admin: 10/15/18 20:52 Dose: 25 mg Sodium Chloride (Normal Saline Flush 0.9%) 10 ml IVP 0100,0900,1700 [facility] Last Admin: 10/16/18 08:44 Dose: 10 ml Sodium Chloride (Normal Saline Flush 0.9%) 10 ml IVP PRN PRN PRN Reason: NEEDED PER PROVIDER ORDERS Last Admin: 10/16/18 11:01 Dose: 10 ml Aspirin 81 mg PO DAILY 12/19/12 Atenolol [Tenormin] 50 mg PO DAILY 12/19/12 metFORMIN [Glucophage] 500 mg PO BID 10/14/14 Mirtazapine 15 mg PO QPM 04/12/18 Fluticasone/Vilanterol [Breo Ellipta 200-25 Mcg INH] 1 puffs PO DAILY 05/05/18 Ipratropium/Albuterol [Duoneb] 3 ml PO Q4H PRN 05/05/18 Lisinopril 10 mg PO DAILY 07/26/18 raNITIdine [Zantac] 150 mg PO TID 08/21/18 - Allergies Allergies/Adverse Reactions: Allergies Allergy/AdvReac Type Severity Reaction Status Date / Time atorvastatin Allergy Intermediate Cramps Verified 10/14/18 13:43 Latex, Natural Rubber Allergy Intermediate blisters Verified 10/14/18 13:43 Sulfa (Sulfonamide Allergy Mild "sick Verified 10/14/18 13:43 Antibiotics) feeling" hydrocodone [Hydrocodone] AdvReac Mild "sick Verified 10/14/18 13:43 feeling" Review of Systems - Constitutional Constitutional: reports: Fatigue, Weight loss - Ears, Nose & Throat Ears, Nose & Throat: reports: Dry mouth - Cardiovascular Cardiovascular: reports: Exertional dyspnea - Respiratory Respiratory: reports: Cough, SOB at rest, SOB with exertion - Gastrointestinal Gastrointestinal: reports: Good appetite - Musculoskeletal Musculoskeletal: reports: Stiffness, Muscle weakness - Integumentary Integumentary: reports: Dryness - Neurological Neurological: reports: General weakness, Memory problems - Psychiatric Psychiatric: reports: Anxiety, Delusions, Hallucinations, Behavior disturbances - Endocrine Endocrine: reports: Diabetes type 2 - Hematologic/Lymphatic Hematologic/Lymphatic: reports: Recurrent infections - All Other Systems All Other Systems: reports: Reviewed and negative Physical Exam - Vital Signs Vital Signs: Vital Signs x48h Temp Pulse Pulse Resp BP Pulse Ox 10/16/18 13:00 67 22 144/59 H 100 10/16/18 12:00 71 17 128/71 100 10/16/18 11:57 97.7 C H 10/16/18 11:20 61 16 10/16/18 11:00 63 19 137/59 H 99 10/16/18 10:00 66 19 142/60 H 99 10/16/18 09:00 67 16 147/69 H 94 10/16/18 08:00 37.0 C 69 19 151/65 H 97 10/16/18 07:34 65 20 10/16/18 07:00 66 18 128/89 H 95 10/16/18 06:00 63 19 129/62 96 - Physical Exam General Appearance: positive: Mild distress, Anxious, Cachetic Eyes Bilateral: positive: Normal inspection ENT: positive: Dry mucous membranes. negative: Pharyngeal erythema Neck: positive: No JVD, Trachea midline Cardiovascular: positive: Regular rate & rhythm Respiratory: positive: Diminished throughout Skin: positive: Dryness Extremities: positive: No pedal edema Neurologic/Psychiatric: positive: Disoriented to place, Disoriented to time, Weakness, Slurred/abnml speech (pressured speech) Palliative Care - POLST Patient has POLST: Yes POLST Status: DNR, Selective Treatment Pain: No pain - Palliative Care Discussion: Patient unable to participate in her goals of care conversation, he is quite confused and rambling. He does predict present with hallucinations delusions and paranoia. Did introduce myself as working with Lindsey. 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 Patient was not challenged, reports he is feeling better. Spoke with Lyly, discussed in the context of patient's delirium, she reports this is not happened before. She does not have any support at home to meet his increased care needs. Did discuss if he would be able to have a conversation regarding a transition plan, possibly placement until he is stabilized such as alf placement. Certainly not in this condition, but she did feel like she could readdress this at some point as far as she is exhibiting significant symptoms of caregiver fatigue and feeling overwhelmed. She reports patient is quite stubborn, will agree to go along with care plans, and often does what he wants. We did discuss in the context of his illness, and he is getting worse, longer periods without oxygen and his continued smoking is going to exacerbate his decline. We will have palliative care continue to follow through hospitalization for support, and decision making when patient able to participate Results - Lab Results Lab results reviewed: Yes Fish Bones: 10/15/18 05:10 10/15/18 05:10 Lab and Imaging Results: Lab Results x24hrs 10/16/18 10/15/18 Range/Units 09:42 05:10 Bld Gas Analysis Time 0942 Sample Site RIGHT RADIAL ABG pH 7.29 L (7.35-7.45) ABG pCO2 67 H* (34-45) mmHg ABG pO2 111 H (80-100) mmHg ABG HCO3 31.5 H (22.0-26.0) mmol/L ABG Total CO2 33.5 H (21.0-29.0) MMOL/L ABG O2 Saturation 98 (94-98) % ABG Base Excess 3.5 H (-2.0-3.0) mmol/L Beltran Test POSITIVE O2 Delivery Device NASAL CANNULA O2 Liters/Min 4.00 LPM Glycated Hemoglobin 5.4 (4.6-6.2) % Estim Average Glucose 108 H (70-100) Impression and Recommendations - Palliative Care Impression: This is an 83-year-old gentleman with severe end-stage COPD and interstitial disease, now acutely hospitalized. Presenting with symptoms of delirium, paranoia, delusions, and difficulty with reorientation. Patient has had ongoing weight loss, this is his second hospitalization within a couple months, exhibits both functional and now cognitive decline. Palliative care to continue to provide support regarding goals of care, transition planning, and symptom management. Recommendations/Counseling Done: 1. Tobacco abuse disorder. Discussed with patient his history of smoking, reports he smoked since 15. Patient continues to smoke about a half a pack a day, despite his confusion, I did discuss with him whether a nicotine patch might be of help. He reports he is feeling somewhat antsy, would be in agreement to use. Message left for hospitalist regarding ordering nicotine patch for support. 2. Weight loss. Patient at home was on 15 mg of mirtazapine at bedtime, lowest weight was 136. Patient has been instructed on small frequent feedings, and increase caloric intake. Patient presents today with significant appetite, distressed at "no food available", staff is working to meet requests. Suspect patient getting a positive effect from the steroids. May consider short-term steroids for appetite stimulant if not discharged on them for his underlying COPD. Usually order Decadron 2-4 mg daily. 3. COPD exacerbation. Patient continues to be quite frail, does present with advanced disease. Patient currently on trilogy, does need encouragement to be compliant. 4. Delirium. This is multifactorial in origin, patient unable to participate in goals of care conversation or transition planning at this point in time. Patient is improved from this morning, but remains disoriented and with paranoia. 5. Advanced care planning. Patient does have a TONY ST, up to this point in time he is still been willing to accept hospitalization and treatment for reversible conditions. does demonstrate caregiver fatigue, concern regarding being able to meet patient's needs if patient continues with cognitive deficits or acute delirium. We will continue to follow, may need transition plan before returning home. Time Spent: 45 minutes was given 50% of this done in counseling regarding family conference, providing support for patient and , and anticipatory guidance.
[2018-10-16] MEDS ORDERED: levoFLOXacin 500 MG/100 ML 500 MG/100 ML BAG IV SCH (20:00)
[2018-10-16] MEDS: QUEtiapine 25 MG TABLET PO SCH (21:03)
[2018-10-17] MEDS: SODIUM CHLORIDE FLUSH 0.9% 10 ML SYRINGE IVP SCH ×3 (02:55→17:53)
[2018-10-17 05:49] LABS: BASOPHILS % (AUTO) 0.2 %; EOSINOPHILS % (AUTO) 0.2 %; HGB - HEMOGLOBIN 9.7 g/dL (14.0-18.0); LYMPHOCYTES # (AUTO) 0.6 10^3/uL (1.5-3.5); LYMPHOCYTES % (AUTO) 12.3 %; MEAN CORPUSCULAR HEMOGLOBIN 26.3 pg (27.0-31.0); MEAN CORPUSCULAR HGB CONC 31.6 g/dL (32.0-36.0); MEAN CORPUSCULAR VOLUME 83.3 fL (80.0-94.0); MEAN PLATELET VOLUME 9.9 fL (7.4-11.4); MONOCYTES # (AUTO) 0.3 10^3/uL (0.0-1.0); MONOCYTES % (AUTO) 5.9 %; NEUTROPHILS # (AUTO) 4.2 10^3/uL (1.5-6.6); NEUTROPHILS % (AUTO) 81.4 %; PLT - PLATELET COUNT 87 10^3/uL (130-450); RED CELL DISTRIBUTION WIDTH 17.9 % (12.0-15.0); WHITE BLOOD COUNT 5.2 x10^3/uL (4.8-10.8)
[2018-10-17 06:03] LABS: ALBUMIN 3.2 g/dL (3.2-5.5); CREATININE 1.2 mg/dL (0.6-1.2); PHOSPHORUS 2.5 mg/dL (2.5-4.6)
[2018-10-17] MEDS: methylPREDNISolone SUCCINATE 40 MG/ML VIAL IVP SCH ×2 (06:32→17:52)
[2018-10-17] MEDS: NICOTINE 14 MG PATCH TOP SCH (08:39)
[2018-10-17] MEDS: ENOXAPARIN 40 MG/0.4 ML SYRINGE SUBQ SCH (08:42)
[2018-10-17] MEDS: SODIUM CHLORIDE 0.9% 1,000 ML IV SCH (08:43)
[2018-10-17] MEDS: POLYETHYLENE GLYCOL 3350 17 GM PACKET PO SCH (08:45)
[2018-10-17] MEDS: MULTIVITAMIN W/MINERALS TABLET PO SCH (08:50)
[2018-10-17] MEDS: acetaZOLAMIDE 250 MG TABLET PO SCH ×2 (08:51→20:58)
[2018-10-17] MEDS: INSULIN ASPART 300 UNIT/3 ML PEN SUBQ SCH ×4 (08:51→20:58)
[2018-10-17] MEDS: IPRATROPIUM/ALBUTEROL 3 ML NEB INH SCH ×4 (09:05→23:26)
--- NOTE | 2018-10-17 11:28 | PROVIDER PROGRESS NOTE ---
Assessment/Plan - Problem List (1) Acute on chronic respiratory failure with hypoxia and hypercapnia Assessment/Plan: The patient's hypercarbia and hypoxia have improved on curent management. Continue supplemental O2. Will transfer out of ICU to a [facility] bed, increase activity. (2) COPD exacerbation Assessment/Plan: Continue nebs, steroids, Mucinex and supplemental O2. He already has a Trilogy mask, per RT report to me. (3) Interstitial lung disease Assessment/Plan: As in #2 (4) CASSY (acute kidney injury) Assessment/Plan: The creat was 0.7 then 1.2 for 2 days, despite iv hydration. I will stop the fluids, since he is taking a diet well. Follow BMP daily. (5) Thrombocytopenia Assessment/Plan: Chronically low plts. Will follow CBC daily. (6) Acute encephalopathy Assessment/Plan: This was felt to be due to marked hypoxia. Resolved. He is coherent, not confused, cooperative today. Will transfer out of ICU. (7) Anemia Assessment/Plan: This is likely fro hemodilution as he was getting iv fluids at 100 cc/hr. Will stop iv hydration, now that he is eating and hydrating normally. Will check B12, Folate levels, Iron panel and stool guiac. Replace if needed. (8) DM type 2 (diabetes mellitus, type 2) Assessment/Plan: Continue carb-controlled diet and fingerstick glu checks with ss Insulin coverage. (9) Paroxysmal atrial fibrillation Assessment/Plan: The patient was taken off Atenolol at admission due to bradycardia. Continue telemetry. His CHADS score is 2 (age >75 and DM). I will evaluate what stroke prevention med he is to be on, since he has criteria to be on an anticoagulant. - Current Meds Current Meds: Current Medications Generic Name Dose Route Start Last Admin Trade Name Freq PRN Reason Stop Dose Admin Acetazolamide 250 mg 10/15/18 09:00 10/17/18 08:51 Diamox PO 250 mg BID [facility] Administration Albuterol 2.5 mg 10/15/18 16:34 10/16/18 01:29 INH 2.5 mg RTQ4H PRN Administration Wheezing Albuterol/Ipratropium 3 ml 10/15/18 19:00 10/17/18 09:05 Duoneb INH 3 ml RTQID [facility] Administration Enoxaparin Sodium 40 mg 10/15/18 09:00 10/17/18 08:42 Lovenox SUBQ 40 mg DAILY [facility] Administration Famotidine 20 mg 10/16/18 12:43 10/17/18 08:50 Pepcid IVP 20 mg DAILY [facility] Administration Haloperidol 2 mg 10/16/18 00:33 10/16/18 23:01 Haldol Inj IVP 2 mg Q6H PRN Administration Agitation Sodium Chloride 1,000 mls @ 100 mls/hr 10/16/18 11:00 10/17/18 10:24 Normal Saline 0.9% IV 100 mls/hr .Q10H [facility] Infusion Levofloxacin 500 mg in 100 mls @ 66.667 mls/hr 10/16/18 20:00 10/17/18 08:56 Levaquin 500 Mg/100 Ml IV Infused Q24H [facility] Infusion Insulin Aspart 2 - 10 unit 10/15/18 21:00 10/17/18 08:51 Novolog SUBQ Not Given 0800,1200,1700,2100 [facility] Protocol Methylprednisolone 40 mg 10/16/18 18:00 10/17/18 06:32 Solu-Medrol (40mg Vial) IVP 40 mg 0600,1800 [facility] Administration Multivitamins/Minerals 1 tab 10/16/18 12:00 10/17/18 08:50 Theragran M PO 1 tab DAILYWM [facility] Administration Nicotine 1 patch 10/17/18 09:00 10/17/18 08:39 Nicoderm TOP 1 patch DAILY [facility] Administration Polyethylene Glycol 17 gm 10/15/18 09:00 10/17/18 08:45 Miralax PO 17 gm DAILY [facility] Administration Quetiapine Fumarate 25 mg 10/15/18 21:00 10/16/18 21:03 Seroquel PO 25 mg QPM [facility] Administration Sodium Chloride 10 ml 10/14/18 17:00 10/17/18 10:18 Normal Saline Flush 0.9% IVP Not Given 0100,0900,1700 [facility] Sodium Chloride 10 ml 10/14/18 15:55 10/16/18 11:01 Normal Saline Flush 0.9% IVP 10 ml PRN PRN Administration NEEDED PER PROVIDER ORDERS - Lab Result Fish Bone Diagrams: 10/17/18 05:02 10/17/18 05:02 - Additional Planning My Orders: My Active Orders 10/17/18 11:23 Transfer [Admit \ Transfer \ Status] [RC] .ONCE Objective Vital Signs: Vital Signs - 24 hr 10/16/18 10/16/18 10/16/18 11:57 12:00 13:00 Temperature 97.7 C H Heart Rate Heart Rate [ 71 67 Monitoring electrodes] Respiratory 17 22 Rate Blood Pressure 128/71 144/59 H [Right Brachial artery] O2 Saturation 100 100 10/16/18 10/16/18 10/16/18 14:00 15:00 15:45 Temperature Heart Rate 66 Heart Rate [ 69 69 Monitoring electrodes] Respiratory 24 20 18 Rate Blood Pressure 145/57 H 135/63 H [Right Brachial artery] O2 Saturation 99 100 10/16/18 10/16/18 10/16/18 16:00 17:00 18:00 Temperature Heart Rate Heart Rate [ 72 72 67 Monitoring electrodes] Respiratory 20 28 H 22 Rate Blood Pressure 144/60 H 147/65 H 137/74 H [Right Brachial artery] O2 Saturation 100 92 100 10/16/18 10/16/18 10/16/18 19:00 20:00 20:55 Temperature 36.7 C Heart Rate 70 Heart Rate [ 67 79 Monitoring electrodes] Respiratory 23 19 18 Rate Blood Pressure 147/69 H 182/68 H [Right Brachial artery] O2 Saturation 100 92 10/16/18 10/16/18 10/16/18 21:00 21:59 23:00 Temperature Heart Rate Heart Rate [ 73 76 75 Monitoring electrodes] Respiratory 19 27 H 22 Rate Blood Pressure 147/64 H 135/58 H 138/79 H [Right Brachial artery] O2 Saturation 97 96 97 10/17/18 10/17/18 10/17/18 00:00 01:00 02:00 Temperature 36.8 C Heart Rate Heart Rate [ 70 64 65 Monitoring electrodes] Respiratory 15 22 18 Rate Blood Pressure 140/49 H 126/44 L 124/59 L [Right Brachial artery] O2 Saturation 98 99 96 10/17/18 10/17/18 10/17/18 03:00 04:00 05:00 Temperature 36.7 C Heart Rate Heart Rate [ 56 L 57 L 58 L Monitoring electrodes] Respiratory 21 20 16 Rate Blood Pressure 106/48 L 119/45 L 140/70 H [Right Brachial artery] O2 Saturation 99 100 97 10/17/18 10/17/18 10/17/18 06:00 08:00 09:00 Temperature 36.6 C Heart Rate Heart Rate [ 77 67 68 Monitoring electrodes] Respiratory 23 23 21 Rate Blood Pressure 153/54 H 154/60 H [Right Brachial artery] O2 Saturation 93 98 96 10/17/18 10/17/18 10:00 11:00 Temperature Heart Rate Heart Rate [ 63 59 L Monitoring electrodes] Respiratory 19 23 Rate Blood Pressure 143/56 H 147/51 H [Right Brachial artery] O2 Saturation 95 95 Oxygen O2 Source [With Activity] Nasal cannula O2 Source [Without Activity] Nasal cannula O2 Source Nasal cannula Oxygen Flow Rate 4 I&O (Last 24 Hrs): Intake and Output Totals x24h 10/15/18 10/16/18 10/17/18 23:59 23:59 23:59 Intake Total 3010 1678.333 Output Total 2960 1950 Balance 50 -271.667 General: Alert, Oriented x3 HEENT: Mucous membr. moist/pink Neck: Supple Neuro: Non Focal Cardiovascular: Regular rate, No murmurs Respiratory: Other (Increased AP diameter with diffusely poor air movement but no wheezing, rales or rhonchi) Abdomen: Soft Extremities: No edema - Results Results: Laboratory Results WBC 5.2 x10^3/uL (4.8-10.8) 10/17/18 05:02 RBC 3.70 10^6/uL (4.70-6.10) L 10/17/18 05:02 Hgb 9.7 g/dL (14.0-18.0) L 10/17/18 05:02 Hct 30.8 % (42.0-52.0) L 10/17/18 05:02 MCV 83.3 fL (80.0-94.0) 10/17/18 05:02 MCH 26.3 pg (27.0-31.0) L 10/17/18 05:02 MCHC 31.6 g/dL (32.0-36.0) L 10/17/18 05:02 RDW 17.9 % (12.0-15.0) H 10/17/18 05:02 Plt Count 87 10^3/uL (130-450) L 10/17/18 05:02 MPV 9.9 fL (7.4-11.4) 10/17/18 05:02 Neut # (Auto) 4.2 10^3/uL (1.5-6.6) 10/17/18 05:02 Lymph # (Auto) 0.6 10^3/uL (1.5-3.5) L 10/17/18 05:02 [place] # (Auto) 0.3 10^3/uL (0.0-1.0) 10/17/18 05:02 Eos # (Auto) 0.0 10^3/uL (0.0-0.7) 10/17/18 05:02 Baso # (Auto) 0.0 10^3/uL (0.0-0.1) 10/17/18 05:02 Absolute Nucleated RBC 0.00 x10^3/uL 10/17/18 05:02 Nucleated RBC % 0.0 /100WBC 10/17/18 05:02 Bld Gas Analysis Time 0942 10/16/18 09:42 Sample Site RIGHT RADIAL 10/16/18 09:42 ABG pH 7.29 (7.35-7.45) L 10/16/18 09:42 ABG pCO2 67 mmHg (34-45) H* 10/16/18 09:42 ABG pO2 111 mmHg (80-100) H 10/16/18 09:42 ABG HCO3 31.5 mmol/L (22.0-26.0) H 10/16/18 09:42 ABG Total CO2 33.5 MMOL/L (21.0-29.0) H 10/16/18 09:42 ABG O2 Saturation 98 % (94-98) 10/16/18 09:42 ABG Base Excess 3.5 mmol/L (-2.0-3.0) H 10/16/18 09:42 Beltran Test POSITIVE 10/16/18 09:42 O2 Delivery Device NASAL CANNULA 10/16/18 09:42 O2 Liters/Min 4.00 LPM 10/16/18 09:42 Vent Mode SYNCHRONOUS/TIMES 10/14/18 17:45 FiO2 100.00 10/15/18 00:40 EPAP 5 cmH2O 10/14/18 17:45 IPAP 16 cmH2O 10/14/18 17:45 Sodium 137 mmol/L (135-145) 10/17/18 05:02 Potassium 4.3 mmol/L (3.5-5.0) 10/17/18 05:02 Chloride 100 mmol/L (101-111) L 10/17/18 05:02 Carbon Dioxide 30 mmol/L (21-32) 10/17/18 05:02 Anion Gap 7.0 (6-13) 10/17/18 05:02 BUN 37 mg/dL (6-20) H 10/17/18 05:02 Creatinine 1.2 mg/dL (0.6-1.2) 10/17/18 05:02 Estimated GFR (MDRD) 58 (>89) L 10/17/18 05:02 Glucose 127 mg/dL (70-100) H 10/17/18 05:02 Glycated Hemoglobin 5.4 % (4.6-6.2) 10/15/18 05:10 Estim Average Glucose 108 (70-100) H 10/15/18 05:10 Lactic Acid 0.4 mmol/L (0.5-2.2) L 10/14/18 15:30 Calcium 9.0 mg/dL (8.5-10.3) 10/17/18 05:02 Phosphorus 2.5 mg/dL (2.5-4.6) 10/17/18 05:02 Magnesium 2.1 mg/dL (1.7-2.8) 10/17/18 05:00 Iron 63 ug/dL (45-182) 10/15/18 05:10 TIBC 297 ug/dL (250-450) 10/15/18 05:10 % Saturation 21 % (20-50) 10/15/18 05:10 Transferrin 212 mg/dL (180-329) 10/15/18 05:10 Total Bilirubin 0.5 mg/dL (0.2-1.0) 10/15/18 05:10 AST 13 IU/L (10-42) 10/15/18 05:10 ALT 10 IU/L (10-60) 10/15/18 05:10 Alkaline Phosphatase 49 IU/L (42-121) 10/15/18 05:10 Troponin I < 0.04 ng/mL (<0.49) 10/14/18 15:30 B-Natriuretic Peptide 319 pg/mL (5-100) H 10/14/18 15:30 Total Protein 6.4 g/dL (6.7-8.2) L 10/15/18 05:10 Albumin 3.2 g/dL (3.2-5.5) 10/17/18 05:02 Globulin 3.2 g/dL (2.1-4.2) 10/15/18 05:10 Albumin/Globulin Ratio 1.0 (1.0-2.2) 10/15/18 05:10 Lipase 22 U/L (22-51) 10/14/18 15:30 Nasal Screen MRSA (PCR) NEGATIVE (NEGATIVE) 10/15/18 08:45 Influenza A (Rapid) Negative (Negative) 10/14/18 15:50 Influenza B (Rapid) Negative (Negative) 10/14/18 15:50 - Procedures Procedures: Procedures ENDO RECTUM POLYPECTOMY (12/20/12) ENDOSC POLYPECTOMY OF LG INTEST (12/20/12) ENDOSCOPIC BIOPSY OF RECTUM (10/14/14) Sepsis Event Note (H) - Evaluation Current Stage of Sepsis: Ruled out (No source of infection as patient has interstitial lung disease came in with CO2 narcosis) - Sepsis Criteria Sepsis Criteria: Respiratory: Increasing oxygen requirements, MAILING MANAGER: altered consciousness (unrelated to primary neuro pathology) ABX Reporting Has patient been on IV antibiotics over the past 48 hours?: Yes
[2018-10-17] MEDS: NEUTRA-PHOS 250 MG TABLET PO SCH ×2 (11:56→17:52)
[2018-10-17] MEDS: SODIUM CHLORIDE FLUSH 0.9% 10 ML SYRINGE IVP PRN ×2 (11:56→17:53)
[2018-10-17] MEDS: ASPIRIN CHEW 81 MG TABLET PO SCH (17:52)
[2018-10-18] MEDS: SODIUM CHLORIDE FLUSH 0.9% 10 ML SYRINGE IVP SCH ×2 (02:30→09:20)
[2018-10-18 06:07] LABS: MAGNESIUM 1.9 mg/dL (1.7-2.8); PHOSPHORUS 3.1 mg/dL (2.5-4.6)
[2018-10-18 06:08] LABS: % IRON SATURATION 24 % (20-50); IRON 75 ug/dL (45-182); TOTAL IRON BINDING CAPACITY 318 ug/dL (250-450); TRANSFERRIN 227 mg/dL (180-329)
[2018-10-18 06:32] LABS: FOLATE 8.78 ng/mL (5.90 - >24.8)
[2018-10-18] MEDS: SODIUM CHLORIDE FLUSH 0.9% 10 ML SYRINGE IVP PRN (06:39)
[2018-10-18] MEDS: methylPREDNISolone SUCCINATE 40 MG/ML VIAL IVP SCH (06:39)
[2018-10-18] MEDS: IPRATROPIUM/ALBUTEROL 3 ML NEB INH SCH ×3 (07:29→15:06)
[2018-10-18] MEDS: INSULIN ASPART 300 UNIT/3 ML PEN SUBQ SCH ×3 (07:32→16:36)
[2018-10-18] MEDS: ENOXAPARIN 40 MG/0.4 ML SYRINGE SUBQ SCH (08:30)
[2018-10-18] MEDS: MULTIVITAMIN W/MINERALS TABLET PO SCH (09:19)
[2018-10-18] MEDS: ASPIRIN CHEW 81 MG TABLET PO SCH (09:19)
[2018-10-18] MEDS: acetaZOLAMIDE 250 MG TABLET PO SCH (09:19)
[2018-10-18 09:20] LABS: BASOPHILS % (AUTO) 0.3 %; EOSINOPHILS % (AUTO) 0.3 %; LYMPHOCYTES # (AUTO) 0.8 10^3/uL (1.5-3.5); LYMPHOCYTES % (AUTO) 15.8 %; MEAN CORPUSCULAR HEMOGLOBIN 26.3 pg (27.0-31.0); MEAN CORPUSCULAR HGB CONC 31.6 g/dL (32.0-36.0); MEAN CORPUSCULAR VOLUME 83.1 fL (80.0-94.0); MEAN PLATELET VOLUME 9.4 fL (7.4-11.4); MONOCYTES # (AUTO) 0.3 10^3/uL (0.0-1.0); MONOCYTES % (AUTO) 6.4 %; NEUTROPHILS # (AUTO) 3.9 10^3/uL (1.5-6.6); NEUTROPHILS % (AUTO) 77.2 %; PLT - PLATELET COUNT 101 10^3/uL (130-450); RED BLOOD COUNT 4.19 10^6/uL (4.70-6.10); RED CELL DISTRIBUTION WIDTH 18.5 % (12.0-15.0); WHITE BLOOD COUNT 5.1 x10^3/uL (4.8-10.8)
[2018-10-18] MEDS: NICOTINE 14 MG PATCH TOP SCH (09:20)
[2018-10-18] MEDS: POLYETHYLENE GLYCOL 3350 17 GM PACKET PO SCH (09:20)
--- NOTE | 2018-10-18 16:53 | Discharge Plan ---
Discharge Plan Disposition: Home, Self Care Condition: Stable Prescriptions: Nicotine 14 mg Patch [Nicoderm] 1 patch TOP DAILY #21 patch predniSONE [Prednisone] 10 mg PO DAILY #11 tablet Diet: Diabetic Activity Restrictions: Activity as Tolerated Shower Restrictions: No Driving Restrictions: Yes Instruction Topics: Quit Smoking Plan, Withdrawal Smoking [place] Additional Instructions or Follow Up instructions: You were admitted in serious condition due to your lung disease. You are being discharged with slightly changed medications. Please follow the new schedule. The Atenolol and Lisinopril should be stopped. Resume the other medications and your inhalers and home oxygen. A new prescription for Nicotine patches was prescribed, to help you stop smoking. You should see your PCP in 5-7 days for hospital follow up. If you have new or worsening symptoms, call your PCP or come to the ER. No Smoking: If you smoke, Please STOP! Call for help. Follow-up with: Tom Biswas MD [Primary Care Provider] -
[2018-10-18 17:33] VITALS: BP 132/66
--- NOTE | 2018-10-19 01:48 | DISCHARGE SUMMARY ---
Physician: Allyson Castaneda MD DATE OF ADMISSION: 10/14/2018 DATE OF DISCHARGE: 10/18/2018 HISTORY OF PRESENT ILLNESS: This is an 83-year-old white male with a history of COPD on home oxygen, interstitial lung disease, type 2 diabetes on oral agents, history of paroxysmal atrial fibrillation but currently in sinus rhythm, continues to use cigarettes who was admitted with shortness of breath and weakness that was progressing for several days and, in the emergency room, was found to be lethargic, hypercapnic with a pCO2 of 163 and hypoxic with saturations under 90%. He was felt to have CO2 narcosis, could not stay awake to give a clinical history. He had an ABG done on supplemental oxygen showing a pH of 7.05, pO2 of 297, bicarbonate of 44 and pCO2 of 163. His lactic acid was normal and creatinine was normal. He was placed on BiPAP for CO2 narcosis and admitted to the ICU. HOSPITAL COURSE AND DISCHARGE DIAGNOSES 1. Acute on chronic respiratory failure with hypoxia and hypercapnia. The patient required BiPAP support for several days, had slow improvement; his pH went from 7.05 to 7.2 on the following day, and by the third day was more alert. His oxygen demands decreased and he was put on nasal cannula oxygen and transferred out of the ICU. The impression was that he had a COPD exacerbation and extreme fatigue of his respiratory muscles causing severe CO2 retention. He needed resumption of his usual oxygen settings of 3 liters continuously at home. 2. Acute metabolic encephalopathy. Secondary to the hypoxia and extreme hypercapnia, he had CO2 narcosis and was intermittently confused and agitated. He required Seroquel and Haldol; but after the 2 days, he had the improvement that is described above with resolution of his confusion and he was lucid, oriented x3 and ready for discharge on 10/18/2018. 3. Chronic obstructive pulmonary disease exacerbation. He was started on IV steroids, nebulizer treatments and Mucinex. There was no underlying bronchitis or pneumonia noted on chest x-ray to explain the exacerbation. 4. Interstitial lung disease. This was probably worsened by his continued tobacco use and he was on a nicotine patch while here. He had strong recommendations to stop smoking and did verbalize that this was his time to stop. 5. Acute kidney injury. The patient's admitting BUN and creatinine were 23 and 0.7; however, this worsened by day 2: BUN was 38 and creatinine 1.2, and at the time of discharge, BUN 37 and creatinine 1.2. His Lisinopril was stopped. 6. Thrombocytopenia. The patient had chronically low platelets while here, ranging between 82-113. 7. Diabetes, type 2. While he was lethargic and on BiPAP, he received IV fluids and sliding scale insulin coverage. With lucidity, his diet was advanced and the insulin coverage continued, but his metformin was resumed at the time of discharge. 8. Anemia. The patient had an admitting hemoglobin of 11.8, which dropped to 9.7, which may have been from hydration. It improved to 11.0 on the day of discharge. He underwent an iron panel, B12 and folate studies and all were within normal limits. 9. Bradycardia. The patient had been on home Atenolol, which was discontinued due to a heart rate of 49-55. Despite being off Atenolol throughout his hospital course, his heart rates remained between 50-60. He was therefore discharged with no Atenolol dosing. 11. History of paroxysmal atrial fibrillation. There were no signs of atrial fibrillation on telemetry, he remained in sinus rhythm. The patient's calculated CHADS score is 2 (age over 75 and diabetes), but he is not on anticoagulant, he only takes aspirin daily. The aspirin was continued while here, when he was awake and able to swallow. He should be considered to be dosed with an anticoagulant if there are no contraindications such as bleeding risk. 12. Tobacco use. The patient was on a nicotine patch while here and agreed to continue this for smoking cessation help. A prescription was provided. LABORATORY AND IMAGING: Reviewed and summarized above. ALLERGIES 1. ATORVASTATIN. 2. LATEX. 3. NATURAL RUBBER. 4. HYDROCODONE. MEDICATIONS AT DISCHARGE 1. Zantac 150 mg t.i.d. 2. Mirtazapine 15 mg q.p.m. 3. Metformin 500 mg b.i.d. 4. Breo Ellipta 1 puff daily. 5. Baby aspirin daily. 5. Ventolin inhaler every 4 hours p.r.n. 6. DuoNeb inhaler every 4 hours p.r.n. 7. Nicotine patch 14 mg topically daily for 3 weeks. 8. Prednisone with a slow taper over 10-12 days. CONDITION AT DISCHARGE: Stable. PHYSICAL EXAMINATION VITAL SIGNS: Blood pressure 132/66, pulse 69 in sinus rhythm, afebrile, 3 liter oxygen saturation 99%. HEENT: Unremarkable. NECK: Without JVD. CHEST: Clear. Good air movement. No wheezes or rales. HEART: Heart sounds distant. No murmur. ABDOMEN: Soft, nontender. No organomegaly. EXTREMITIES: No edema. NEUROLOGIC: Grossly intact. FOLLOWUP: He was advised to see his PCP in the next 5-7 days for followup of his respiratory status, possible resumption of his Atenolol and Lisinopril and further management of his pulmonary status and for help with smoking cessation. CODE STATUS: DNR. Time required to complete discharge, chart review, patient education, family education, prescription orders, dictation: 60 minutes. cc: Tom Biswas MD TD: 10/18/2018 19:19 MTDD
== END 2018-10-18 18:11 | disposition home or self-care (01) | DRG 189 ==
LOC: EDUNIT# → ED 13:33 → ICU 15:55 → MS2 22:19 → ICU 22:20 → MS2 10-17 18:27
PROVIDERS: ADMIT Family Medicine; ATTEND Internal Medicine
DX: J96.21 Acute and chronic respiratory failure with hypoxia (principal); G93.1 Anoxic brain damage, not elsewhere classified; I48.91 Unspecified atrial fibrillation; J44.1 Chronic obstructive pulmonary disease with (acute) exacerbation; J84.9 Interstitial pulmonary disease, unspecified; N17.9 Acute kidney failure, unspecified; E78.00 Pure hypercholesterolemia, unspecified; E87.2 Acidosis; D69.6 Thrombocytopenia, unspecified; E11.9 Type 2 diabetes mellitus without complications; D64.9 Anemia, unspecified; R00.1 Bradycardia, unspecified; F17.210 Nicotine dependence, cigarettes, uncomplicated; J96.22 Acute and chronic respiratory failure with hypercapnia; I48.0 Paroxysmal atrial fibrillation; K21.9 Gastro-esophageal reflux disease without esophagitis; H40.9 Unspecified glaucoma; M19.90 Unspecified osteoarthritis, unspecified site; R63.4 Abnormal weight loss; E78.5 Hyperlipidemia, unspecified; Z66 Do not resuscitate; Z68.20 Body mass index [BMI] 20.0-20.9, adult; Z79.51 Long term (current) use of inhaled steroids; Z79.82 Long term (current) use of aspirin; Z79.84 Long term (current) use of oral hypoglycemic drugs; Z99.81 Dependence on supplemental oxygen
CPT/HCPCS: 36415; 36600; 71045; 80053; 80069; 82607; 82746; 82803; 83036; 83540; 83605; 83690; 83735; 83880; 84100; 84466; 84484; 85025; 87150; 87275; 87276; 92610; 93005; 94640; 94660; 96361; 96374; 97116; 97161; 97165; 99284; 99285; A9270; J1650; J7120; 82272; 99233

== ENCOUNTER 2018-10-24 14:35 | Outpatient (CLI) | payer MEDICARE, OTHER ==
--- NOTE | 2018-10-24 20:18 | CONSULTATION NOTE ---
Palliative Care Follow Up - Referral Referring Provider: Dr Biswas Time of Visit: Sissy 10/24/2018. 14:35 - 15:30 Referral setting: Home Referral Reason: End stage COPD - Information Sources Records reviewed: Previous records reviewed History/Review of Systems obtained from: Patient, Family Exam limitations: Clinical condition (Poor historian; memory deficits) - History of Present Illness Update Brief HPI Update: 83-year-old gentleman with severe end stage COPD and interstitial pulmonary disease followed by Palliative Care since April. He has frequent hospitalizations. Most recent is 10/14/18 - 10/18/18 for acute on chronic COPD exacerbation. Previous hostpitalization was also for COPD exacerbation in 2018. Medical History: COPD for more than 10 years; HTN; chronic atrial fibrillation; moderate R ventricular enlargement with EF 55-60%; glaucoma and cataracts; cholecystectomy; osteoarthritis with shoulder arthroplasty; DM II controlled, not on insulin; steroid induced hyperglycemia; h/o gastritis; tobacco use disorder but has quit smoking during hospitalization Patient was hospitalized 10/14/18-10/18/18 for acute respiratory failure with hypoxemia and CO2 narcosis with a PCO2 of 163. The previous hospitalization for respiratory failure was in August 2018, and pr evious to that, in April 2018: three hospitalizations in 6 months. Today's visit is at his house. Spouse says he has improved since the hospitalization and the resolution of his delirium associated with acute hypoxemic encephalopathy. Patient states he is doing well, but he is vague and a poor historian. He is weaker than his previous baseline; his spouse notes that she has to bring his meals to him in his recliner; he no longer goes to the table to eat. He is also housebound, not doing his "regular running around." Previously he visited his buddies at the [facility]. Also he went [facility] everyday to watch the boats. He has been housebound since discharge from hospital almost a week ago. Unfortunately he is smoking again, so his removed the nicotine patch that was ordered by hospitalist. He's smoking between 1/2 to 1 pack a day. He states he is going to quit. Their biggest concern is getting caregiving help. They don't qualify for A[employer], nor the [employer] program; his income ($2,262) is $12 above the threshold. is most concerned about getting help with showering and bathing. His PCP has made a referral to Home Health RN and Health Aid, made last week on 10/19. Social History - Living Situation Living arrangement: At home Living Situation: With spouse/s.o. Support System: Lives with of 57 years in their [facility] that they've owned since 1976. They moved here from [place]. They have 4 adult children: 2 in [place], 2 in [place] and one in [place], [place]. Medications/Allergies - Medications Home Medications: Ambulatory Orders Medication Instructions Recorded Confirmed Aspirin 81 mg PO DAILY 12/19/12 10/24/18 metFORMIN [Glucophage] 500 mg PO BID 10/14/14 10/24/18 Mirtazapine 15 mg PO QPM 04/12/18 10/24/18 Ipratropium/Albuterol [Duoneb] 3 ml PO Q4H PRN 05/05/18 10/24/18 raNITIdine [Zantac] 150 mg PO TID 08/21/18 10/24/18 Albuterol Sulf [Ventolin Hfa 1 - 2 puffs INH Q4HR PRN #1 inhaler 08/22/18 10/24/18 Inhaler] Nicotine 14 mg Patch [Nicoderm] 1 patch TOP DAILY #21 patch 10/18/18 10/24/18 predniSONE [Prednisone] 10 mg PO DAILY #11 tablet 10/18/18 10/24/18 Fluticasone Furoate [Arnuity 100 mcg IH DAILY 10/24/18 10/24/18 Ellipta] Umeclidinium Brm/Vilanterol Tr 1 puffs INH DAILY 10/24/18 10/24/18 [Anoro Ellipta 62.5-25 Mcg INH] - Allergies Allergies/Adverse Reactions: Allergies Allergy/AdvReac Type Severity Reaction Status Date / Time atorvastatin Allergy Intermediate Cramps Verified 10/14/18 13:43 Latex, Natural Rubber Allergy Intermediate blisters Verified 10/14/18 13:43 Sulfa (Sulfonamide Allergy Mild "sick Verified 10/14/18 13:43 Antibiotics) feeling" hydrocodone [Hydrocodone] AdvReac Mild "sick Verified 10/14/18 13:43 feeling" Review of Systems - Constitutional Constitutional: reports: Fatigue, Weakness, Poor appetite, Weight stable (150 lbs today on home scale. 149 lbs in hospital) - Eyes Eyes: reports: Vision loss, Corrective lenses - Ears, Nose & Throat Ears, Nose & Throat: reports: Hearing loss - Cardiovascular Cardiovascular: reports: Exertional dyspnea, Decr. exercise tolerance - Respiratory Respiratory: reports: SOB at rest (on continual oxygen, but has h/o not using oxygen consistently), SOB with exertion - Gastrointestinal Gastrointestinal: denies: Constipation - Genitourinary Genitourinary: denies: Incontinence - Musculoskeletal Musculoskeletal: reports: Stiffness, Limited range of motion, Assistive devices, Transfer issues - Neurological Neurological: reports: General weakness, Memory problems Physical Exam - Vital Signs Temperature: 97.3 F Pulse Rate: 77 O2 Saturation: 99 (on O2) Blood Pressure: 152/66 - Physical Exam General Appearance: positive: No acute distress Eyes Bilateral: positive: Normal inspection ENT: positive: No signs of dehydration Neck: positive: Trachea midline Cardiovascular: positive: Regular rate & rhythm, No murmur Respiratory: positive: Chest non-tender, No respiratory distress, Diminished throughout, Wheezes (expiratory, L side). negative: Rales, Rhonchi Skin: positive: Pallor Extremities: positive: No pedal edema Neurologic/Psychiatric: positive: Disoriented to time, Flat affect Palliative Care - POLST Patient has POLST: Yes POLST Status: DNR, Selective Treatment Pain: No pain Tiredness/Fatigue: Moderate (4-6) Drowsiness/Sedation: None Dyspnea: Moderate (4-6) Anorexia: Moderate (4-6) Performance Status: sleeps more poor appetite active smoker (1/2 to 1 ppd) weaker, remains in recliner most of time weaker, slower gait on oxygen continually doesn't use Trilogy at night - Palliative Care Discussion: , Lyly, is at risk of caregiver burnout. Lyly gave me verbal permission to speak with a family friend and share medical information with her: Johann Alicia, , who does [place]. Johann had asked Lyly to have me call her. She has known the family for a long time. I did contact her and we spoke by telephone Johann is quite concerned for the health of Lyly, the . Lyly doesn't often speak up nor advocate for herself. Also her loss of h earing affects her comprehension. Johann thinks the adult children might "step up" and help the parents by contributing financially toward caregiving, if they know the situation. They have 4 adult children, one linves in [place], the others are in the [place] area. Lyly has spoken to them about actual on-site, hands-on caregiving, but this will not be work for the children. While the patient was in the hospital, the initial hope was for a discharge to SNF for rehabilitation, thus providing respite for Lyly. However, the patient was DC'd directly home. The day after discharge, pt went to his PCP for follow up. The PCP referred him to Home Health RN for medicine management support, and for the Health Aid too. I spoke with the MA at the PCP's clinic today; she confirmed the Home Health re ferral was submitted on 10/19. I informed the patient and Lyly We had a long discussion regarding care givers and resources in this area. SW in the hospital had made initial contacts for them, and it appears that someone from [facility] has already left them a voicemail. I provided [facility] contact information to her. I also am making a referral to the Palliative Care SW for help and support, and possibly facilitating and family conference with the adult children. Impression and Recommendations - Palliative Care Impression: 83-year-old gentleman with severe end stage COPD and interstitial pulmonary disease with frequent hospitalizations, most recently last week. is at risk of caregiver burnout with his increased care needs. They do not qualify for any subsdized programs to help with care giving. 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 Palliative Care will continue to follow and monitor. Recommendations/Counseling Done: End stage COPD: Hospitalized last week for hypoxemic respiratory failure and CO2 narcosis. This is his 3rd hospitalization with respiratory failure in the past 6 months. He's using the nebulizer TID. He's not using the Trilogy at night, doesn't like the mask. He has two replacement inhalers: Anoro, (umeclidinium and vilanterol 62.5mcg/25mcg) and Arnuity (fluticasone furoate 100mcg). Also has albuterol (Ventolin). Is on prednisone taper: 20mg x 2 days; 10mg x 4 days, then 5mg x 6 days. He is using the oxygen consistently now, but has historically gone without it in the past. He is weaker, has less stamina, and remains housebound, mostly in his recliner. HTN: Lisinopril and atenolol were discontinued in the hospital. PCP confirmed that he will keep him off these for the time being. BP today higher than normal 152/66. Chronic atrial fibrillation: Temporarily off atenolol (rate control). Continues on aspirin. Tobacco use disorder: Patient remains an active smoker, 1/2-1 PPD. had removed the nicotine patch when he started smoking again. Reinforced the message that he can't smoke while wearing the patch. Patient reports he will stop smoking Anorexia: Improved, weight is stable, around 149-150 lbs. His appetite declines when he's smoking. Advance care planning: POLST is DNR and selective treatment. Have referred family to Palliative Care SW for support and information regarding care giving options, and facilitation for a possible family conference. Palliative Care SW will follow up with spouse. Time Spent: 55 minutes were spent with more than 50% of the time spent on counseling, education, and coordination of care with PCP office, family and family friend.
== END 2018-10-24 14:36 | disposition home or self-care (01) ==
LOC: PC 14:35
PROVIDERS: ATTEND Nurse Practitioner
DX: Z51.5 Encounter for palliative care (principal); J44.9 Chronic obstructive pulmonary disease, unspecified; J84.9 Interstitial pulmonary disease, unspecified; Z99.81 Dependence on supplemental oxygen; I11.9 Hypertensive heart disease without heart failure; E11.9 Type 2 diabetes mellitus without complications; Z79.84 Long term (current) use of oral hypoglycemic drugs; Z66 Do not resuscitate; F17.210 Nicotine dependence, cigarettes, uncomplicated; R53.1 Weakness; R63.0 Anorexia; Z91.19 Patient's noncompliance with other medical treatment and regimen; I48.2 Chronic atrial fibrillation; Z79.82 Long term (current) use of aspirin
CPT/HCPCS: 99349

== ENCOUNTER 2018-11-10 13:25 | Outpatient (CLI) | payer MEDICARE, OTHER ==
--- NOTE | 2018-11-10 17:11 | CONSULTATION NOTE ---
Palliative Care Follow Up - Referral Referring Provider: Dr Tom Biswas Time of Visit: Tue11/10/2018. 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 He has had 3 hospitalizations in 6 months for COPD exacerbations Apr 2018, August and October 2018. Previous to these, his last hospitalizations, at least at , were in Sep and December 2013. Medical History: COPD for more than 10 years; HTN; chronic atrial fibrillation; moderate R ventricular enlargement with EF 55-60%; glaucoma and cataracts; cholecystectomy; osteoarthritis with shoulder arthroplasty; DM II controlled, not on insulin; steroid induced hyperglycemia; h/o gastritis; tobacco use disorder Patient has been housebound since his hospitalization 10/14/18-10/18/18. His has been staying at home with him, nervous about leaving him alone and only going out if a friend or family member is there to watch him. She requested that Palliative Care [employer] assess whether it's safe to leave patient by himself in home for short periods while she shops or swims at her gym. Patient is alert and aware in his chair. He's wearing his oxygen and reports using it most of time in the day. He does take it off when he walks in the house. He always takes it off when he goes to the outside "sun room" where he smokes. He confirms he never smokes in the house, and he never takes the oxygen cannula to the outside/sunroom where he smokes. His gait is slow but steady. He has no issues transferring. Performed an MMSE on him today. Score is 25/30, very mild cognitive impairment. He does have cognitive insight into his condition, and also understands the extreme risk of smoking around oxygen. He confirms repeatedly he never smokes in the house or takes the oxygen with him when he smokes. Lyly his spouse confirms this. Patient says he's using the nebulizer daily and Trilogy at night. Lyly corrects him, reports he hasn't used Trilogy for the past 3-4 nights. It's also not certain whether he uses the nebulizer regularly. Patient reports episodic heartburn, says ranitidine doesn't work, but drinking a small amount of baking soda in water works. He will also try Tums. Lyly would feel better if patient had a LifeLine, and she would be more comfortable leaving him for around 2 hours if he had one and used it. He says he is not enthused about having one, but he agrees with getting one in order to help Lyly, so she can leave the house and get a break. They are being supported by Annabelle Desir of [facility], who came out recently for a house visit. It was Annabelle who instructed Lyly to get Palliative Care [employer] approval for patient being alone for a few hours. He was set up with a bath aid, assume this was through [facility]. When she called to set up the appointment, patient refused the service. He reports that he baths himself. says she remains present when he's in the bath/shower. Palliative Care SW has a visit set up with patient and spouse next week, for social and resource support and possibly arranging family conference regarding the patient's increased care needs and Lyly's ability to continue provide caregiving by herself. Patient denies SOA with activity, confirms SOA with exertion. He has not been going to the [facility] to meet his friends, since his last hospitalization. That used to be his great marleny. Social History - Living Situation Living arrangement: At home Living Situation: With spouse/s.o. Support System: Lives with of 57 years in their [facility] that they've owned since 1976. They moved here from [place]. They have 4 adult children, [place]: 2 in [place], 2 in [place] and one in [place], [place]. Family friend spoke previously to Palliative Care [employer] about her concern that Lyly, spouse, is burning out and the adult kids "need to step up" and help out with caregiving, likely financially, since patient can't afford, but doesn't meet ADELSO criteria. Palliative Care is meeting with patient and spouse next week to move forward on this. Medications/Allergies - Medications Home Medications: Ambulatory Orders Medication Instructions Recorded Confirmed Aspirin 81 mg PO DAILY 12/19/12 10/24/18 metFORMIN [Glucophage] 500 mg PO BID 10/14/14 10/24/18 Mirtazapine 15 mg PO QPM 04/12/18 10/24/18 Ipratropium/Albuterol [Duoneb] 3 ml PO Q4H PRN 05/05/18 10/24/18 raNITIdine [Zantac] 150 mg PO TID 08/21/18 10/24/18 Albuterol Sulf [Ventolin Hfa 1 - 2 puffs INH Q4HR PRN #1 inhaler 08/22/18 10/24/18 Inhaler] Nicotine 14 mg Patch [Nicoderm] 1 patch TOP DAILY #21 patch 10/18/18 10/24/18 Fluticasone Furoate [Arnuity 100 mcg IH DAILY 10/24/18 10/24/18 Ellipta] Umeclidinium Brm/Vilanterol Tr 1 puffs INH DAILY 10/24/18 10/24/18 [Anoro Ellipta 62.5-25 Mcg INH] - Allergies Allergies/Adverse Reactions: Allergies Allergy/AdvReac Type Severity Reaction Status Date / Time atorvastatin Allergy Intermediate Cramps Verified 10/14/18 13:43 Latex, Natural Rubber Allergy Intermediate blisters Verified 10/14/18 13:43 Sulfa (Sulfonamide Allergy Mild "sick Verified 10/14/18 13:43 Antibiotics) feeling" hydrocodone [Hydrocodone] AdvReac Mild "sick Verified 10/14/18 13:43 feeling" Review of Systems - Constitutional Constitutional: reports: Fatigue, Poor appetite, Weight stable - Eyes Eyes: reports: Vision loss, Corrective lenses - Ears, Nose & Throat Ears, Nose & Throat: reports: Hearing loss - Cardiovascular Cardiovascular: reports: Exertional dyspnea, Decr. exercise tolerance. denies: Edema - Respiratory Respiratory: reports: Cough, Sputum production, SOB with exertion - Gastrointestinal Gastrointestinal: reports: Other (heart burn. ranitidine doesn't help; baking soda does) - Genitourinary Genitourinary: denies: Incontinence - Musculoskeletal Musculoskeletal: reports: Stiffness, Limited range of motion, Assistive devices, Transfer issues - Neurological Neurological: reports: General weakness, Memory problems (MMSE score 25/30, mild impairment) - Psychiatric Psychiatric: denies: Depression - Other Findings Other Findings: Limited ROS. Physical Exam - Vital Signs Temperature: 96.5 F Pulse Rate: 77 O2 Saturation: 96 (on 2L O2) Blood Pressure: 153/82 (wrist cuff) - Physical Exam General Appearance: positive: No acute distress, Alert Eyes Bilateral: positive: Normal inspection ENT: positive: No signs of dehydration Neck: positive: Trachea midline Cardiovascular: positive: Regular rate & rhythm Respiratory: positive: No respiratory distress, Diminished throughout, Wheezes, Rhonchi, Other (on oxygen 2L) Skin: positive: Dryness Extremities: positive: No pedal edema Neurologic/Psychiatric: positive: Oriented x3, Mood/affect nml Palliative Care - POLST Patient has POLST: Yes POLST Status: DNR, Selective Treatment Tiredness/Fatigue: Moderate (4-6) Anxiety: Comment (denies SOA at rest; reports it with exertion, activity) - Palliative Care Discussion: Patient has been housebound since hospitalization for COPD exacerbation last month. doesn't leave unless someone comes in to watch him. She wants to know if it's ok to leave him alone for a few hours. He is independently ambulatory and able to easily self transfer from recliner to standing/walkinig. Although he does smoke and is on oxygen, he never smokes in the house, or with the oxygen with him. He has a utility room off the kitchen, far from his concentrator. He also has the cognitive ability to understand and evaluate the danger of smoking and oxygen. Patient has agreed to obtaining a LifeLine, or similar tool, and will wear it while his is out running errands or going to the gym for a few hours. He knows and understands that it will provide her some peace of mind. Palliative Care [employer] assesses that she can leave him unsupervised for short periods. She will follow up on obtaining a LifeLine. Palliative Care provided contact information for the service through , and also advised they can get similar services online, through pharmacies, or [employer]. Spouse wants to wait until patient has a Lifeline before she leaves him alone for 2 hours to go to the gym for swimming. Palliative Care SW has a visit scheduled next week regarding caregiving support and possibly involving family in contributing toward hiring paid caregiving support. 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 He is currently housebound, and too since he has not been strong enough to leave him. She can occasionally get someone to stay with him so she can shop. is at risk of caregiver burnout with his increased care needs. Palliative Care SW is scheduled to make an initial SW visit scheduled next week regarding caregiving support and possibly involving family in contributing toward hiring paid caregiving support. Recommendations/Counseling Done: End stage COPD: Improving since hospitalization, but still weak, lacks stamina, remains housebound, on continual oxygen, is at a new, lower baseline. He's doesn't use the Trilogy at night, doesn't like the mask. Uses his inhalers as prescribed. Prednisone taper is complete. He remains ambulatory inside the house, without walker, with relatively steady gait. HTN: Lisinopril and atenolol were discontinued in the hospital. PCP wanted to keep him off these for the time being. BP today higher again, it was 153/82, last visit it was 152/66. Faxed this information to PCP Dr Biswas to inquire if he wants to resume HTN meds and if so, one or both, and at what dose. Chronic atrial fibrillation: Temporarily off atenolol (rate control). Continues on aspirin. Tobacco use disorder: Active smoker, 1/2-1 PPD. He takes off the cannula, walks to the other end of the house and smokes in special outside room far from his oxygen concentrator. His MMSE score is 25/30, mild cognitive impairment. He retains medical decision making capacity and understanding of the risks and dangers of smoking and using oxygen. Anorexia: Weight is stable around 149-150 lbs. Advance care planning: POLST is DNR and selective treatment. According to today's assessment, patient could be left alone for short periods, particularly when the family obtains LifeLine emergency support. Palliative Care provided contact information for the [facility] department that arranges for LifeLine. It is also available online, through [employer], or at pharmacies. Home health bath aid came but the patient refused the service. He continues to bath independently; will get him a bath chair. Palliative Care SW has a visit scheduled next week regarding his increased needs for caregiving support and possibly involving the adult children in contributing toward hiring paid caregiving support. Time Spent: 40 minutes were spent with more than 50% of the time spent on counseling, education, and anticipatory guidance.
== END 2018-11-10 13:26 | disposition home or self-care (01) ==
LOC: PC 13:25
PROVIDERS: ATTEND Nurse Practitioner
DX: Z51.5 Encounter for palliative care (principal); J44.9 Chronic obstructive pulmonary disease, unspecified; J84.9 Interstitial pulmonary disease, unspecified; Z99.81 Dependence on supplemental oxygen; H40.9 Unspecified glaucoma; I48.2 Chronic atrial fibrillation; M19.90 Unspecified osteoarthritis, unspecified site; E09.8 Drug or chemical induced diabetes mellitus with unspecified complications; T38.0X5D Adverse effect of glucocorticoids and synthetic analogues, subsequent encounter; F17.210 Nicotine dependence, cigarettes, uncomplicated; H54.7 Unspecified visual loss; H91.90 Unspecified hearing loss, unspecified ear; K21.9 Gastro-esophageal reflux disease without esophagitis; I10 Essential (primary) hypertension; G31.84 Mild cognitive impairment of uncertain or unknown etiology; R63.0 Anorexia; Z66 Do not resuscitate; Z79.82 Long term (current) use of aspirin; Z79.84 Long term (current) use of oral hypoglycemic drugs; Z79.51 Long term (current) use of inhaled steroids
CPT/HCPCS: 99349

== ENCOUNTER 2018-11-19 15:33 | Outpatient (CLI) | payer MEDICARE, OTHER | END 2018-11-19 15:34 | disposition EMS.NT | LOC: EMS 15:33 | PROVIDERS: ATTEND Surgery | DX: Z03.89 Encounter for observation for other suspected diseases and conditions ruled out (principal) ==

== ENCOUNTER 2018-11-28 15:20 | Outpatient (CLI) | payer MEDICARE, OTHER ==
--- NOTE | 2018-11-28 20:34 | CONSULTATION NOTE ---
Palliative Care Follow Up - Referral Referring Provider: Dr Biswas Time of Visit: [place] 11/28/2018. 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 He has had 3 hospitalizations in 6 months for COPD exacerbations Apr 2018, August and October 2018. Previous to these, his last hospitalizations, at least at , were in Sep and December 2013. Medical History: COPD for more than 10 years; HTN; chronic atrial fibrillation; moderate R ventricular enlargement with EF 55-60%; glaucoma and cataracts; cholecystectomy; osteoarthritis with shoulder arthroplasty; DM II controlled, not on insulin; steroid induced hyperglycemia; h/o gastritis; tobacco use disorder Patient has been housebound since his hospitalization 10/14/18-10/18/18. He's being seen by [facility] RN and also by PT for strengthening and balance. His condition is generally declining, though he doesn't complain and always states he's feeling pretty good. His spouse is often shaking her head her head behind him, disagreeing with his statements. His eating is worse, he admits he doesn't have any appetite. has noted his appetite and weight increases when he is not smoking. Unfortunately, he smokes 1/2 pack a day now. told me she tried to refuse buying his cigarettes; he got the car keys and was going to drive himself to the store to buy the cigarettes. He has been told by doctors that he can no longer do it, it's not safe. She relented and bought his cigarettes for him. He says he is just not hungry, does not have any explanation or insight into it. He admits he needs to eat more to stay healthy. When we discuss quitting/cutting down on smoking he always agrees, states that he should quit, and he could quit, and he will quit. They still have nicotine patches, they also have nicotine gum. Son bough him juul, but he doesn't like it. [facility] RN called Palliative Care [employer] to let me know about his weight loss. She states he lost 11 lbs since hospitalization, but that is in error. Weight is about the same. He was 140 lbs (64kg) at 10/14 hospital weigh-in. He is currently 141.5 lbs on 11/27 n the [facility] scale that they keep at his house. He was 57.7lbs 08/21/18 in the ED, and 146.5lbs during the hospitalization at that same visit. 152 lbs in Jul and May 31, 2018, then 147 lb May 1705/2018 and 04/09/2018. So weight has been fluctuating, depending on hospitalization, smoking status, and appetite. He has been on mirtazapine for awhile, it's unclear if it's helping in some small way to maintain his weight. Likely a significant factor is his continued smoking that diminishes his appetite. Had long discussion about CBD and cannabis products as an appetite stimulant. He has a friend who runs a cannabis shop and he plans to inquire with him. I also left a Dronabinol script with his , but counseled her to check with their insurance first because it's very costly. They may be better going with CBD products from retailers. [facility] has been reinforcing that pt should use nebulizer daily (he's now at TID and says he may go up to QID) and must use Trilogy nightly. I reinforce that message; patient verbalized agreement, but whether he will actually comply is uncertain. Patient's spouse continues to stay home with him. He had two recent falls, and so she doesn't feel safe leaving him at home. Their son who lives locally comes one day a week for a few hours so she can go swimming. They also have another friend who can come by, but it's not regular. So she ends up staying in most of the time. Social History - Living Situation Living arrangement: At home Living Situation: With spouse/s.o. Support System: Lives with of 57 years in their [facility] that they've owned since 1976. They moved here from [place]. [place] 4 [place] 2 in [place], 2 in [place] and one in [place], [place]. Family friend spoke previously to Palliative Care [facility] about her concern that Lyly, spouse, is burning out and the adult kids "need to step up" and help out with caregiving, likely financially, since patient can't afford, but doesn't meet ADELSO criteria. Palliative Care SW is meeting with patient and spouse next week to move forward on this. Medications/Allergies - Medications Home Medications: Ambulatory Orders Medication Instructions Recorded Confirmed metFORMIN [Glucophage] 500 mg PO BID 10/14/14 11/28/18 Mirtazapine 15 mg PO QPM 04/12/18 11/28/18 Ipratropium/Albuterol [Duoneb] 3 ml PO Q4H PRN 05/05/18 11/28/18 raNITIdine [Zantac] 150 mg PO TID 08/21/18 11/28/18 Albuterol Sulf [Ventolin Hfa 1 - 2 puffs INH Q4HR PRN #1 inhaler 08/22/18 11/28/18 Inhaler] Nicotine 14 mg Patch [Nicoderm] 1 patch TOP DAILY #21 patch 10/18/18 11/28/18 Fluticasone Furoate [Arnuity 100 mcg IH DAILY 10/24/18 11/28/18 Ellipta] Umeclidinium Brm/Vilanterol Tr 1 puffs INH DAILY 10/24/18 11/28/18 [Anoro Ellipta 62.5-25 Mcg INH] Guaifenesin/Dextromethorphan 1 ea PO PRN 11/28/18 [Mucinex Dm ER 1,200-60 mg Tab] Lisinopril 10 mg PO DAILY 11/28/18 11/28/18 Pantoprazole [Protonix] 40 mg PO DAILY 11/28/18 11/28/18 Vitamin B12 Solution 5,000 mcg PO DAILY PRN 11/28/18 - Allergies Allergies/Adverse Reactions: Allergies Allergy/AdvReac Type Severity Reaction Status Date / Time atorvastatin Allergy Intermediate Cramps Verified 10/14/18 13:43 Latex, Natural Rubber Allergy Intermediate blisters Verified 10/14/18 13:43 Sulfa (Sulfonamide Allergy Mild "sick Verified 10/14/18 13:43 Antibiotics) feeling" hydrocodone [Hydrocodone] AdvReac Mild "sick Verified 10/14/18 13:43 feeling" Review of Systems - Constitutional Constitutional: reports: Fatigue, Poor appetite, Weight loss (He was 140 lbs (64kg) at 10/14/18 hospital weigh-in. He is currently 141.5 lbs on 11/27/18 on the [facility] scale that they keep at his house. He was 57.7lbs 08/21/18 in the ED, and 146.5 lbs during the hospitalization at that same visit. 152 lbs in Jul and May 31, 2018, then 147 lb May 1705/2018 and 04/09/2018.), Other (Increased sleeping) - Eyes Eyes: reports: Vision loss, Corrective lenses - Ears, Nose & Throat Ears, Nose & Throat: reports: Hearing loss - Cardiovascular Cardiovascular: reports: Exertional dyspnea, Decr. exercise tolerance. denies: Palpitations, Chest pain, Edema - Respiratory Respiratory: reports: Sputum production, SOB at rest, SOB with exertion, Other (Now on continual oxygen) - Gastrointestinal Gastrointestinal: denies: Constipation - Genitourinary Genitourinary: denies: Incontinence - Musculoskeletal Musculoskeletal: denies: Transfer issues - Integumentary Integumentary: reports: Dryness - Neurological Neurological: reports: General weakness, Memory problems - Psychiatric Psychiatric: denies: Depression Physical Exam - Vital Signs Temperature: 96.6 F Pulse Rate: 70 O2 Saturation: 95 (on 3L O2) Blood Pressure: 146/73 (wrist cuff) - Physical Exam General Appearance: positive: No acute distress Eyes Bilateral: positive: Normal inspection ENT: positive: No signs of dehydration Neck: positive: Trachea midline Cardiovascular: positive: Regular rate & rhythm, No murmur, No gallop Respiratory: positive: Chest non-tender, Diminished in bases, Rhonchi (L anterior inspiratory wheeze; R anterior expiratory wheeze) Skin: positive: Pallor, Dryness Extremities: positive: No pedal edema Neurologic/Psychiatric: positive: Mood/affect nml Palliative Care - POLST Patient has POLST: Yes POLST Status: DNR, Selective Treatment Tiredness/Fatigue: Moderate (4-6) Anorexia: Severe (7-10) Performance Status: On continual oxygen 3L/hr Housebound since last hospitalization in October Ambulatory Anorexia, weight loss Increased sleep MMSE score 11/10/18 was 25/30, mild cognitive impairment. - Palliative Care Discussion: Palliative Care SW visited patient and spouse 11/15/18. At tthat time spouse thought she would be able to get out for swimming daily in [place]. Then patient fell twice; spouse doesn't feel comfortable leaving him alone. So she remains in the house with him. The family members (children and pt's siblings) aren't able to financially help with hiring caregivers. One son lives locally and tries to come once a week so spouse can shop or leave the house. They have a friend (or another family member) who also may be able to help from time to time. Otherwise there appears to be not much in the way of family support, and their financial status doesn't permit for much in the way of caregiver support. We discussed SNF/rehab, LTC, and assisted living facilities, what is covered by Medicare, what isn't. Per SW notes, they don't qualify for TSOA or ADELSO support, but they are on the waiting list for a program called "family caregiver support program." Apparently a program that offers a little respite once a week for a few hours. There is no current opening; they may be on the waiting list. Palliative Care SW plans to provide ongoing SW support and will contact them again in 4-6 weeks. Spouse seems overwhelmed and confused often at the various services and healthcare workers that come to their house. She's had caseworkers from [facility] (the ones who told her about the caregiver support program), [facility] RN 2x/week and PT 2x/week, and Palliative Care [employer]ERSON and SW. Had a very long discussion with pt and spouse providing anticipatory guidance regarding caregiving and possibly touch decisions ahead as patient's disease progresses, and the very high risk of future respiratory crises. Also spoke about Hospice and qualifying medically and that family/patient goals of care match with Hospice. Spent a long time on this; patient doesn't appear ready to forego hospitalization. seems more so. I reiterated that Hospice doesn't provide alf caregiving. 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 He is currently housebound due to O2 needs and fatigue, and doesn't leave due to fear of his falling (he's fallen twice recently). [facility] provides RN support 2x/week and PT 2x/week. remains at high risk of caregiver burnout. Will continue the conversation about anticipating caregiving requirements and needs as the patient's disease progresses. Palliative Care will continue to provide LIFE INSURANCE SALESPERSON and SW support. Recommendations/Counseling Done: End stage COPD: Slow decline, more fatigue and sleeping, patient remains housebound since hospitalization, on continual 3L oxygen. Patient on [facility] 2x/week: Eugenie Ward RN, [phone] mobile. Also [facility] 2x/week. The [facility] and Palliative Care [employer] INSURANCE SALESPERSON encourage consistent use of Trilogy at night. Pt's compliance is uncertain, but may improve with a unified message. He reports using inhalers as prescribed. Uses nebulizer TID, encouraged to i ncrease to 4x/day HTN: Lisinopril 10mg restarted by PCP after it was stopped in hospital. Atenolol wasn't. BP today was better: 146/73. Last visit it was 153/82, and before [id number]. Chronic atrial fibrillation: Off both atenolol and aspirin. Tobacco use disorder: Active smoker, 1/2-1 PPD. He and report he never smokes near the concentrator, he goes into a separate utility room off the kitch, far from his oxygen concentrator. Anorexia: 141.5 lbs on 11/27/18 on the [facility] scale. 140 lbs (64kg) at 10/14/18 hospital weigh-in. Was 152 lbs May-Jul, but 147 lbs early May 2018 and Apr 2018. Will continue mirtazapine 15mg for now, though unclear what, if any, appetite stimulant it's providing. Wrote a script for dronabinol 2.5m PO 1 cap BID 1 hr before lunch and dinner. Recommend that spouse check pricing/insurance coverage with her pharmacy, it may very well be prohibitive. Recommended another option: CBD products (as appetite supplement) purchased through retail stores. Pt has a friend with a [employer] business he will speak with. Patient has a prednisone taper when coming out of hospital; it is unclear if it had beneficial effect on his appetite. Advance care planning: POLST is DNR and selective treatment. Called [facility] to obtain contact information for [employer] through [email or web address]. Spouse already had some of the numbers through the [employer]ist: [employer] info: Katie Luo, Mgr, , [phone]. Direct line for customers: [phone] [employer] monitorin9 [phone] [employer] sign up [phone], [phone] Palliative Care SW had initial visit 11/15/2018, pt and spouse amenable to ongoing support. SW will follow up with them 4-6 weeks after. LIFE INSURANCE SALESPERSON follow up monthly and as needed. Time Spent: 85 minutes were spent with more than 50% of the time spent on counseling, education, providing anticipatory guidance, and coordination of care.
== END 2018-11-28 15:21 | disposition home or self-care (01) ==
LOC: PC 15:20
PROVIDERS: ATTEND Nurse Practitioner
DX: Z51.5 Encounter for palliative care (principal); J44.9 Chronic obstructive pulmonary disease, unspecified; J84.9 Interstitial pulmonary disease, unspecified; R63.0 Anorexia; R63.4 Abnormal weight loss; I11.9 Hypertensive heart disease without heart failure; I48.2 Chronic atrial fibrillation; F17.210 Nicotine dependence, cigarettes, uncomplicated; G31.84 Mild cognitive impairment of uncertain or unknown etiology; E11.9 Type 2 diabetes mellitus without complications; Z79.84 Long term (current) use of oral hypoglycemic drugs; Z99.81 Dependence on supplemental oxygen; Z66 Do not resuscitate; Z91.81 History of falling; Z59.6 Low income; Z79.899 Other long term (current) drug therapy
CPT/HCPCS: 99350

== ENCOUNTER 2018-12-25 15:10 | Outpatient (CLI) | payer MEDICARE, OTHER ==
--- NOTE | 2018-12-25 15:24 | CONSULTATION NOTE ---
Palliative Care Follow Up - Referral Referring Provider: Dr Tom Biswas Time of Visit: Tuesday12/25/2018. 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 He has had 3 hospitalizations in 6 months for COPD exacerbations Apr 2018, August and October 2018. Previous to these, his last hospitalizations, at least at , were in Sep and December 2013. Medical History: COPD for more than 10 years; HTN; chronic atrial fibrillation; moderate R ventricular enlargement with EF 55-60%; glaucoma and cataracts; cholecystectomy; osteoarthritis with shoulder arthroplasty; DM II controlled, not on insulin; steroid induced hyperglycemia; h/o gastritis; tobacco use disorder Patient continues to decline functionally, lungs sounds are worse, weight continues to drop. He has been housebound since his October hospitalization. He tried walking around the property this weekend, became very short of breath. [facility] PT discharged him. [facility] RN will discharge him at next visit. Patient continues to lose weight, down to high 130s. He was previously mid-low 140s, and last around 150 lbs. started him on a CBD product as an appetite stimulant, but he continues to lose weight. She's giving him CBD with 2.5mg THC, and is out of that for a few days, so will be giving him another type with lower THC (1.9mg). Patient unfortunately continues to smoke which cuts his appetite, as well as worsening his SOA. He habitually concedes that he should stop smoking. He does have 14mg nicotine patches, plus nicotine gum at home. He's smoking between 1/2 and 1 pack a day. He usually doesn't eat in the morning, eats a small breakfast/lunch late morning, then 8pm small dinner, with small snacks throughout day. Usually uses nebulizer TID. Sporadically uses Trilogy at night, but hasn't for the past 3 nights due to the mask hurting / bothering him. Their rep brought them a different style mask, he hasn't used it yet, but since our conversation today, he says he will use it. His spouse is now leaving the house more frequently, something she wasn't doing before. She runs errands and swims at the pool. Patient has a LifeLine, he wears it and knows how to use it. Social History - Living Situation Living arrangement: At home Living Situation: With spouse/s.o. Support System: Lives with of 57 years in their [facility] that they've owned since 1976. They moved here from [place]. They have 4 adult [place]: 2 in [place], 2 in [place] and one in [place], [place]. Medications/Allergies - Medications Home Medications: Ambulatory Orders Medication Instructions Recorded Confirmed metFORMIN [Glucophage] 500 mg PO BID 10/14/14 11/28/18 Mirtazapine 15 mg PO QPM 04/12/18 11/28/18 Ipratropium/Albuterol [Duoneb] 3 ml PO Q4H PRN 05/05/18 11/28/18 raNITIdine [Zantac] 150 mg PO TID 08/21/18 11/28/18 Albuterol Sulf [Ventolin Hfa 1 - 2 puffs INH Q4HR PRN #1 inhaler 08/22/18 11/28/18 Inhaler] Nicotine 14 mg Patch [Nicoderm] 1 patch TOP DAILY #21 patch 10/18/18 11/28/18 Fluticasone Furoate [Arnuity 100 mcg IH DAILY 10/24/18 11/28/18 Ellipta] Umeclidinium Brm/Vilanterol Tr 1 puffs INH DAILY 10/24/18 11/28/18 [Anoro Ellipta 62.5-25 Mcg INH] Guaifenesin/Dextromethorphan 1 ea PO PRN 11/28/18 [Mucinex Dm ER 1,200-60 mg Tab] Lisinopril 10 mg PO DAILY 11/28/18 11/28/18 Pantoprazole [Protonix] 40 mg PO DAILY 11/28/18 11/28/18 Vitamin B12 Solution 5,000 mcg PO DAILY PRN 11/28/18 Cbd Gummies, With Thc 1 ea PO DAILY PRN 12/25/18 - Allergies Allergies/Adverse Reactions: Allergies Allergy/AdvReac Type Severity Reaction Status Date / Time atorvastatin Allergy Intermediate Cramps Verified 10/14/18 13:43 Latex, Natural Rubber Allergy Intermediate blisters Verified 10/14/18 13:43 Sulfa (Sulfonamide Allergy Mild "sick Verified 10/14/18 13:43 Antibiotics) feeling" hydrocodone [Hydrocodone] AdvReac Mild "sick Verified 10/14/18 13:43 feeling" Review of Systems - Constitutional Constitutional: reports: Fatigue, Poor appetite, Weight loss (138 lbs 12/25/18. 137.9 12/24/18. 139.0 12/22/18. 141.5 lbs on 11/27/18 on the [facility] scale that they keep at his house. He was 57.7lbs 08/21/18 in the ED, and 146.5 lbs during the hospitalization at that same visit. 152 lbs in Jul and May 31, 2018, then 147 lb May 1705/2018 and 04/09/2018.) - Eyes Eyes: reports: Vision loss, Corrective lenses - Ears, Nose & Throat Ears, Nose & Throat: reports: Hearing loss - Cardiovascular Cardiovascular: reports: Exertional dyspnea, Decr. exercise tolerance. denies: Chest pain, Edema - Respiratory Respiratory: reports: Cough (chronic, moist), SOB at rest, SOB with exertion - Gastrointestinal Gastrointestinal: reports: Poor appetite, Early satiety. denies: Constipation - Genitourinary Genitourinary: denies: Dysuria - Musculoskeletal Musculoskeletal: reports: Stiffness. denies: Assistive devices, Transfer issues - Integumentary Integumentary: reports: Dryness - Neurological Neurological: reports: General weakness, Memory problems - Psychiatric Psychiatric: denies: Depression Physical Exam - Vital Signs Temperature: 96.3 F Pulse Rate: 83 O2 Saturation: 92 (3L O2 via NC) Blood Pressure: 137/64 - Physical Exam General Appearance: positive: No acute distress, Alert, Cachetic Eyes Bilateral: positive: Normal inspection ENT: positive: No signs of dehydration Neck: positive: Trachea midline Cardiovascular: positive: No murmur, Irregular Respiratory: positive: Chest non-tender, No respiratory distress, Diminished throughout, Wheezes (inspiratory), Rhonchi (expiratory). negative: Breath sounds nml Skin: positive: Dryness Extremities: positive: No pedal edema Neurologic/Psychiatric: positive: Oriented x3 Palliative Care - POLST Patient has POLST: Yes POLST Status: DNR, Selective Treatment Pain: No pain Tiredness/Fatigue: Mild (1-3) Drowsiness/Sedation: None Dyspnea: Moderate (4-6) Anorexia: Severe (7-10) Sleep: Sleeps poorly (doesn't sleep as well when he doesn't use the Trilogy) Constipation: No Performance Status: On continual oxygen 3L/hr Housebound since last hospitalization in October Ambulatory Anorexia, weight loss Increased sleep MMSE score 11/10/18 was 25/30, mild cognitive impairment. - Palliative Care Discussion: Discussed with patient what would make life unbearable; he says being bedbound in a facility or hospital. Being bedbound at home, though not something he would choose, would still be acceptable. But he worries about the effect it would have on his , the trouble and burden it would be. He does recognize and admit his condition continues to deteriorate, his disease is incurable, and he will have another respiratory crisis at some point in the f uture. I asked him about goals of care in light of this, and there is no cure is transfer to hospital for treatment, vs comfort care and remaining at home, under Hospice. He does not have an answer currently, so goals of care will remain unchanged: transfer to hospital as needed. We also discussed the eventual need for increased care as the lung disease progresses (as has been brought up at previous visits), what would be their plans if his care becomes more than Lyly can handle. The subject was discussed, they don't have answers or a plan at this time. Previously they have said the adult children aren't in a position to contribute financially or time peterson. At SW visit last month, on 11/15/18, Palliative Care SW noted that they were ineligible for entitlement services such as TSOA or ADELSO. Their toppiece chopper Annabelle was working to get them into a "family caregiver support program." which does provide a little respite for caregiver/spouse once a week for a few hours at a time. There was no opening at that time. 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 [facility] provides RN support 2x/week and PT 2x/week. is able to get out of the house more often, but remains at high risk of caregiver burnout. Family has not yet addressed the issue of how to provide adequate care giving when his needs increase. Will continue the conversation about anticipating caregiving requirements and needs as the patient's disease progresses. Palliative Care will continue to provide MOOSE HUNTER and SW support. Recommendations/Counseling Done: End stage COPD: Ongoing decline with increased fatigue, sleep, patient is housebound (used to drive to [place], to [facility] to meet buddies), chronic SOA requires continual 3L oxygen. He resists using Trilogy at night. Does use nebulizer 3x/day on most days. Has previously been encouraged to increase it to 4x/day, he is fairly consistent at using it 3x. He reports using inhalers as prescribed. HTN: BP today 137/64. Continue Lisinopril. Chronic atrial fibrillation: Off both atenolol and aspirin. Tobacco use disorder: Continues to smoke 1/2-1 PPD. Has 14mg nicotine patches available, and nicotine gum. Anorexia: Continues to lose weight, now 138-139 lbs. Was previously 140-141.5 lbs in October and November. Was 152 lbs May-Jul. Still on mirtazapine 15mg. Last month's dronabinol script was not accepted by insurance, no surprise there. Spouse then purchased CBD product over the counter. It contains 2.5mg THC, she also has one with 1.9mg she'll use as backup. Spouse hasn't noticed an improvement in appetite. They will continue it for awhile. Provided education that weight loss is common with end-stage COPD; also his active smoking naturally cuts his appetite. When the patient quits smoking, he generally starts gaining weight. Advance care planning: POLST is DNR and selective treatment. Palliative Care SW had initial visit 11/15/2018, pt and spouse amenable to ongoing support. New SW Roney is to follow up with them 4-6 weeks after. Discussed goals of care in terms of future hospital visits vs transitioning to comfort care. Also discussed anticipating increased care giving needs and what their plans would be. Will continue the conversation about both. MOOSE HUNTER sent them the list of Caregiver Agencies that operate on [facility]. MOOSE HUNTER follow up monthly and as needed. Time Spent: 45 minutes were spent with more than 50% of the time spent on counseling, education, providing anticipatory guidance, and coordination of care with spouse.
== END 2018-12-25 15:11 | disposition home or self-care (01) ==
LOC: PC 15:10
PROVIDERS: ATTEND Nurse Practitioner
DX: Z51.5 Encounter for palliative care (principal); J44.9 Chronic obstructive pulmonary disease, unspecified; J84.9 Interstitial pulmonary disease, unspecified; I10 Essential (primary) hypertension; R63.0 Anorexia; R63.4 Abnormal weight loss; E11.9 Type 2 diabetes mellitus without complications; F17.200 Nicotine dependence, unspecified, uncomplicated; Z99.81 Dependence on supplemental oxygen; Z79.84 Long term (current) use of oral hypoglycemic drugs; Z66 Do not resuscitate
CPT/HCPCS: 99349

== ENCOUNTER 2019-01-17 09:00 | Outpatient (CLI) | payer MEDICARE, OTHER ==
--- NOTE | 2019-01-17 12:31 | CONSULTATION NOTE ---
Palliative Care Follow Up - Referral Referring Provider: Dr Biswas Time of Visit: Tue01/17/2019. 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 He has had 3 hospitalizations recently for COPD exacerbations: Apr 2018, August and October 2018. Previoushe had not been hospitalized, at least on [facility], since 2013. Medical History: COPD for more than 10 years; HTN; chronic atrial fibrillation; moderate R ventricular enlargement with EF 55-60%; glaucoma and cataracts; cholecystectomy; osteoarthritis with shoulder arthroplasty; DM II controlled, not on insulin; steroid induced hyperglycemia; h/o gastritis; tobacco use disorder. ABGs labs were at critical levels during most recent hospitalization in October 2018. Patient continues to lose weight despite mirtazapine and having started CBD/THC gummies for appetite stimulation. He confesses he's just not hungry. continues to cook meals, serve protein shakes, and use tactics such as more frequent, smaller portions. He weighs 134-135 lbs currently. Last July he was 152 lbs, a 11% loss in 6 months. Also patient's SOA is worsening, he reports it comes and goes, but usually he has SOA only with exertion. Patient remains on continuous oxygen, a change from back in Apr 2018 when Palliative Care first started seeing him. At that time, patient would remain off oxygen for extended periods, and would drive to meet his buddies at the pub without taking the portable oxygen along. Just prior to today's assessment, his reported his O2 sats dropped to 87% on 2.5-3.0 liters, and she increased it to 3.5L. During my assessment, it was 90% at 3.5L. Spouse recorded his O2 sats dropping into the upper-80s over the past 3 days. Patient has remained housebound since hospitalization in October, no longer driving to the shore to watch the boats come in, or to the pub to meet his buddies. He does enjoy watching the water and horizon through the large picture window in his living room. He uses Trilogy sporadically, and usually not at night, as recommended. He is using the nebulizer 2-3x/day, as well as his inhalers. Patient is an active smoker which he does realize suppresses his appetite. Social History - Living Situation Living arrangement: At home Living Situation: With spouse/s.o. Support System: Lives with of 57 years in their [facility] that they've owned since 1976. They moved here from [place]. They have 4 adult [place], [place]: 2 in [place], 2 in [place] and one in [place], [place]. Patient will qualify for ADELSO caregiving through [facility], they have an appointment with the case checker tomorrow at their house. Medications/Allergies - Medications Home Medications: Ambulatory Orders Medication Instructions Recorded Confirmed metFORMIN [Glucophage] 500 mg PO BID 10/14/14 01/17/19 Mirtazapine 15 mg PO QPM 04/12/18 01/17/19 Ipratropium/Albuterol [Duoneb] 3 ml PO Q4H PRN 05/05/18 01/17/19 raNITIdine [Zantac] 150 mg PO TID 08/21/18 01/17/19 Albuterol Sulf [Ventolin Hfa 1 - 2 puffs INH Q4HR PRN #1 inhaler 08/22/18 01/17/19 Inhaler] Nicotine 14 mg Patch [Nicoderm] 1 patch TOP DAILY #21 patch 10/18/18 01/17/19 Fluticasone Furoate [Arnuity 100 mcg IH DAILY 10/24/18 01/17/19 Ellipta] Umeclidinium Brm/Vilanterol Tr 1 puffs INH DAILY 10/24/18 01/17/19 [Anoro Ellipta 62.5-25 Mcg INH] Guaifenesin/Dextromethorphan 1 ea PO PRN 11/28/18 [Mucinex Dm ER 1,200-60 mg Tab] Lisinopril 10 mg PO DAILY 11/28/18 01/17/19 Pantoprazole [Protonix] 40 mg PO DAILY 11/28/18 01/17/19 Vitamin B12 Solution 5,000 mcg PO DAILY PRN 11/28/18 01/17/19 Cbd Gummies, With Thc 1 ea PO DAILY PRN 12/25/18 01/17/19 - Allergies Allergies/Adverse Reactions: Allergies Allergy/AdvReac Type Severity Reaction Status Date / Time atorvastatin Allergy Intermediate Cramps Verified 10/14/18 13:43 Latex, Natural Rubber Allergy Intermediate blisters Verified 10/14/18 13:43 Sulfa (Sulfonamide Allergy Mild "sick Verified 10/14/18 13:43 Antibiotics) feeling" hydrocodone [Hydrocodone] AdvReac Mild "sick Verified 10/14/18 13:43 feeling" Review of Systems - Constitutional Constitutional: reports: Poor appetite, Weight loss (Currently 134-135 lbs. Was 152 lbs in July, 11% loss in 6 months.) - Eyes Eyes: reports: Vision loss, Corrective lenses - Ears, Nose & Throat Ears, Nose & Throat: reports: Hearing loss, Hearing aids - Cardiovascular Cardiovascular: reports: Exertional dyspnea, Decr. exercise tolerance. denies: Chest pain - Respiratory Respiratory: reports: Cough (moist), SOB with exertion - Gastrointestinal Gastrointestinal: reports: Poor appetite, Early satiety. denies: Abdominal pain, Constipation - Genitourinary Genitourinary: denies: Dysuria, Incontinence - Musculoskeletal Musculoskeletal: reports: Stiffness. denies: Assistive devices, Transfer issues - Integumentary Integumentary: reports: Dryness - Neurological Neurological: reports: Memory problems (MMSE score 11/10/18 was 25/30, mild cognitive impairment) - Psychiatric Psychiatric: denies: Depression, Anxiety Physical Exam - Vital Signs Temperature: 97.1 F Pulse Rate: 85 O2 Saturation: 90 (3.0-3.5 L) Blood Pressure: 113/58 - Physical Exam General Appearance: positive: No acute distress, Alert, Cachetic Eyes Bilateral: positive: Normal inspection ENT: positive: Dry mucous membranes Neck: positive: Trachea midline Cardiovascular: positive: Regular rate & rhythm, No murmur Respiratory: positive: Chest non-tender, No respiratory distress, Diminished throughout (significantly), Rales (blaterally), Other (rough breath sounds anteriorly). negative: Wheezes Abdomen: positive: Non-tender, Soft, Nml bowel sounds Skin: positive: Pallor, Dryness Extremities: positive: No pedal edema Neurologic/Psychiatric: positive: Oriented x3, Mood/affect nml Palliative Care - POLST Patient has POLST: Yes POLST Status: DNR, Selective Treatment Pain: No pain Drowsiness/Sedation: None Depression: None Anxiety: None Dyspnea: Comment (with exertion; worsening. Now uses oxygen continuously, 2.5- 3.5L O2 sats in high 80s past 3 days) Anorexia: Severe (7-10) Constipation: No Performance Status: ambulatory continent PPS 40% (spends most of time sitting) - Palliative Care Discussion: Patient has consistently said to this point that he would want to go to hospital for treatment/stabilization with respiratory crises. We had a very long discussion today with patient and his Lyly. Patient has mild cognitive impairment (MMSE 25/30) but is competent to make his own medical decisions. We discussed at length his numerous questions and concerns about the hospice service. He does understand that he would be able to stay at home, without transfer to ED or hospital, except for comfort care (eg, to treat a fracture). He also understands that he wouldn't be seeing Dr Biswas any longer, but Dr Soto would in effect be his medical doctor, and he could see him as indicated, and that the ongoing hands-on care is provided by Hospice RNs and aids. We discussed at length the benefits and burden of Hospice, how the care team works, what services are offered, etc. Patient felt transitioning in to hospice, considering his disease progression, ongoing weight loss, and the increasing burden of care on his , and the support this would give them both, is a good choice. He requested input from his , and she is agreeable to Hospice, feels the added support would be very beneficial. His ongoing concern is the burden of care and of everything else which is handled by his now that he can no longer participate in. He worries quite a bit about the strain on her. Both Lyly and the patient are aware that Hospice does not provide residential caregiving, and they remain responsible for that. They have just signed on for ADELSO, and the asbestos pipe supervisor will be meeting them either today or tomorrow to discuss their caregiving needs. Lyly has been able to get out and do grocery shopping, and go to her gym. She leaves the patient on his own for short periods (2 hours or so) to do this. She is looking forward to having a care assistant be able to help out with this. 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 The patient has just qualified for ADELSO and is in the process of getting caregiver support. Palliative Care SALES OPERATIONS SPECIALIST recommends Hospice for this patient. Recommendations/Counseling Done: End stage COPD: His ABGs were at critical levels in October, his most recent hospitalization for COPD exacerbation. Worsening SOA and debility since then. Patient is now on continual supplement oxygen, between 2.5-3L. His O2 saturation has dropped to the high 80s for past 3 days, increased his oxygen to 3.5L today. He uses nebulizer 2-3x day, but is inconsistent on the Trilogy ventilator, doesn't use it at night He reports using inhalers as prescribed. Tobacco use disorder: Active smoker, 1/2-1 PPD. Has 14mg nicotine patches available, and nicotine gum. Anorexia: Ongoing weight loss, currently 134-135 lbs. Was 152 lbs May-Jul, an 11% decrease over 6 months. On mirtazapine and CBD/THC gummies for appetite stimulant. Historically he gains weight when he stops smoking. Advance care planning: Patient meets medical criteria for Hospice, and it meets the patient's (and 's) goals of care. Palliative Care SALES OPERATIONS SPECIALIST recommends transition to Hospice and will recommend Dr Biswas refer the patient to Hospice. Time Spent: 70 minutes were spent with more than 50% of the time spent on counseling, education, providing anticipatory guidance, and coordination of care regarding Hospice.
== END 2019-01-17 09:01 | disposition home or self-care (01) ==
LOC: PC 09:00
PROVIDERS: ATTEND Nurse Practitioner
DX: Z51.5 Encounter for palliative care (principal); J44.9 Chronic obstructive pulmonary disease, unspecified; R63.4 Abnormal weight loss; H54.7 Unspecified visual loss; H91.90 Unspecified hearing loss, unspecified ear; R63.0 Anorexia; G31.84 Mild cognitive impairment of uncertain or unknown etiology; J84.9 Interstitial pulmonary disease, unspecified; Z99.81 Dependence on supplemental oxygen; F17.210 Nicotine dependence, cigarettes, uncomplicated; Z66 Do not resuscitate; Z79.84 Long term (current) use of oral hypoglycemic drugs; Z79.51 Long term (current) use of inhaled steroids
CPT/HCPCS: 99349